=== PATIENT | male | born 1940 | race Caucasian/White ===

== ENCOUNTER 2017-11-10 10:58 | Inpatient (IN) | payer OTHER, MEDICARE ==
[~2017-11-10] VITALS: Ht 170.2 cm; Wt 72.6 kg
[~2017-11-10 10:58] MED LIST: BENAZEPRIL HCL5 MG PO; CELEBREX200 M1 PO; CYCLOBENZAPRINE10 M1 PO; FISH OIL 1,0001 EACH PO; FLOMAX0.4 M1 PO; FOLIC ACID0.8 M2 PO; HYDROCHLOROTHIA25 M1 PO; IBUPROFEN600 M1 PO; MAGNESIUM500 M2 PO; NEURONTIN300 M1 PO; TURMERIC500 M2 PO; VITAMIN B-121000 MC3 PO; VITAMIN D2000 UNI1 PO
--- NOTE | 2017-11-10 11:03 | ED GENERAL ADULT ---
History of Present Illness General Chief Complaint: General Adult Stated Complaint: SWOLLEN MASS LOWER ABD Allergies Coded Allergies: No Known Allergies (10/22/17) Reconcile Medications Benazepril HCl 5 MG TABLET 0.5 TAB PO DAILY BP (Reported) Celecoxib (Celebrex) 200 MG CAPSULE 1 CAP PO DAILY PRN PAIN (Reported) Cholecalciferol (Vitamin D3) (Vitamin D) 2,000 UNIT TABLET 1 TAB PO DAILY VITAMIN SUPPORT (Reported) Cyanocobalamin (Vitamin B-12) 1,000 MCG TABLET 1 TAB PO DAILY VITAMIN SUPPORT (Reported) Cyclobenzaprine HCl 10 MG TABLET 1 TAB PO Q8P spasms Folic Acid 0.8 MG TABLET 1 TAB PO DAILY VITAMIN SUPPORT (Reported) Gabapentin (Neurontin) 300 MG CAPSULE 4 CAP PO TID NERVE PAIN (Reported) Hydrochlorothiazide 25 MG TABLET 0.5 TAB PO DAILY WATER RETENTION (Reported) Ibuprofen 600 MG TABLET 1 TAB PO Q6P PRN PAIN with food Magnesium Oxide (Magnesium) 500 MG CAPSULE 1 CAP PO DAILY SUPPLEMENT ( Reported) Meloxicam 7.5 MG TABLET 1 TAB PO Q12H PAIN/INFLAMMATION (Reported) Acosta-3 Fatty Acids/Fish Oil (Fish Oil 1,000 MG Capsule) 340 MG-1,000 MG CAPSULE 1 CAP PO DAILY SUPPLEMENT (Reported) Tamsulosin HCl (Flomax) 0.4 MG CAP.ER.24H 1 CAP PO DAILY BPH (Reported) Tramadol HCl 50 MG TABLET 1 TAB PO Q8H PAIN (Reported) Turmeric Root Extract (Turmeric) 500 MG CAPSULE 1 CAP PO DAILY SUPPLEMENT ( Reported) Triage Note: PT BIBA FROM HOME FOR EVALUATION OF SWELLING IN HIS ABD. PT HAS BEEN DIARRHEA DN WEAKNESS FOR THE PAST FEW WEEKS. PT HAS NOT BEEN ABLE TO AMBULATE DUE TO WEAKNESS. Onset: Abrupt Duration: day(s): Timing: recent history (Jairo Russo DO) General Source: patient, Exam Limitations: no limitations Vital Signs & Intake/Output Vital Signs & Intake/Output Vital Signs Date Time Temp Pulse Resp B/P B/P Pulse O2 O2 Flow FiO2 Mean Ox Delivery Rate 11/10 1858 97.5 66 18 106/55 Room Air 11/10 1634 96 Room Air 11/10 1633 98.1 64 18 112/66 96 Room Air 11/10 1340 97.9 68 16 100/60 08 1202 97 Room Air 11/10 1102 96.1 65 16 107/61 95 Room Air Triage Nurses Notes Reviewed? yes HPI: 77-year-old male with an extensive past medical history including hypertension, neuropathy, arthritis, spinal stenosis presented to the emergency department for urinary incontinence, abdominal swelling and pain, diarrhea 5days The patient reports that for the past 5 days he has had urinary leakage for the past 5 days. He cannot pass urine as well. The put him on diapers. The patient reports abdominal swelling and mild abdominal pain for the past 3 days. He does not complain of dysuria, urgency, frequency. The patient has had diarrhea for the past 7 days. he has been passing watery stools for an average of 3 times per day. gave him Imodium which did not help. No associated nausea or vomiting. At home the patient uses a walker but for the past 7 days he has not been able to walk at all and has been in bed. On review of systems: No fever, chills, chest pain, shortness of breath, palpitations, cough, loss of appetite, night sweats, headaches. (Maria Eugenia Quezada MD) Past History Travel History Traveled to [place] past 21 day No Medical History Neurological: peripheral neuropathy EENT: NONE Cardiovascular: hypertension Respiratory: NONE Gastrointestinal: NONE Hepatic: NONE Renal: NONE Musculoskeletal: SPINAL STENOSIS Psychiatric: NONE Endocrine: NONE Blood Disorders: NONE Cancer(s): NONE MAT MAKER/Reproductive: NONE Surgical History Surgical History: non-contributory Psychosocial History What is your primary language Swedish Tobacco Use: Quit >30 days ago ETOH Use: denies use Illicit Drug Use: denies illicit drug use (Jairo Russo DO) Medical History Any Pertinent Medical History? see below for history Neurological: peripheral neuropathy, spinal stenosis EENT: NONE Cardiovascular: hypertension Respiratory: NONE Gastrointestinal: NONE Hepatic: NONE Renal: NONE Musculoskeletal: SPINAL STENOSIS Psychiatric: NONE Endocrine: NONE Blood Disorders: NONE Cancer(s): NONE Surgical History Surgical History: non-contributory Psychosocial History Where do you live Home Who do you live with Spouse What is your primary language Swedish Tobacco Use: Quit >30 days ago ETOH Use: denies use Illicit Drug Use: denies illicit drug use Family History Hx Contributory? Yes (Maria Eugenia Quezada MD) Review of Systems Review of Systems Constitutional: Reports: weakness. Denies: chills, diaphoresis, fever, malaise, unexplained weight loss. EENTM: Reports: no symptoms. Denies: blurred vision, double vision, visual changes, eye pain, eye drainage, eye tearing, icterus, ear discharge, ear pain, ear redness, hearing changes, nasal congestion, epistaxis, nasal pain, throat pain, throat swelling, mouth pain, tooth pain. Respiratory: Reports: no symptoms. Cardiovascular: Reports: no symptoms. GI: Reports: abdominal pain, diarrhea, distention, bowel incontinence. Genitourinary: Denies: discharge, dysuria, frequency, hematuria, hesitation, nocturia, pain, urgency (uri inconti ). Musculoskeletal: Reports: back pain, muscle pain. Skin: Reports: no symptoms. Neurological/Psychological: Reports: no symptoms. Hematologic/Endocrine: Reports: no symptoms. Immunologic/Allergic: Reports: no symptoms. All Other Systems: Reviewed and Negative (Maria Eugenia Quezada MD) Physical Exam Physical Exam General Appearance: well developed/nourished, no apparent distress, alert, awake , comfortable Head: atraumatic, normal appearance Eyes: Bilateral: normal appearance, PERRL, EOMI. Ears, Nose, Throat: normal pharynx, normal ENT inspection, hearing grossly normal Neck: normal inspection, supple Respiratory: normal breath sounds, chest non-tender, no respiratory distress Cardiovascular: regular rate/rhythm Peripheral Pulses: 4+ radial (R), 4+ radial (L) Gastrointestinal: normal bowel sounds, soft, tenderness, mass, tenderness and mass in hypogastrium Rectal: normal rectal tone, Prostate is enlarge, non tender, smooth surface Neurologic/Psych: no motor/sensory deficits, awake, alert, oriented x 3, normal mood/affect Core Measures ACS in differential dx? No CVA/TIA Diagnosis: No Sepsis Present: No Sepsis Focused Exam Completed? Yes (Maria Eugenia Quezada MD) Progress Differential Diagnoses I considered the following diagnoses in my evaluation of the patient: (Karan SEN,Jairo Velasco) Differential Diagnoses I considered the following diagnoses in my evaluation of the patient: Urinary retention likely to pain medications/ enlarged prostate/ neuropathy Plan of Care: Orders Procedure Date/time Status Heart Healthy Diet 11/11 B Active Regular Diet 11/10 D Complete Weight 11/10 1948 Active Vital Signs 11/10 1948 Active Teach/Educate 11/10 1948 Active Pain Treatment and Response 11/10 1948 Active Nutritional Intake, Monitor 11/10 1948 Active Isolation 11/10 1948 Active Intake & Output 11/10 1948 Active Patient Care Conference 11/10 1948 Active Activity/Ambulation 11/10 1948 Active Patient Data 11/10 163 Active ED Holding Orders 11/10 162 Active Admit to inpatient 11/10 162 Active Code Status 11/10 162 Active COMPREHENSIVE METABOLIC PANEL 11/10 1155 Complete URINALYSIS 11/10 1130 Complete CBC WITHOUT DIFFERENTIAL 11/10 1130 Complete Cameron, Insertion/Removal/Asses 11/10 1129 Active CULTURE,URINE 11/10 112 Active Intake & Output 11/10 1112 Active PT Evaluate & Treat 11/10 UNK Active Laboratory Tests 11/10/17 1158: Anion Gap 7, Estimated GFR 39 L, BUN/Creatinine Ratio 35.9 H, Glucose 101 H, Calcium 9.3, Total Bilirubin 2.3 H, AST 162 H, ALT 444 H, Alkaline Phosphatase 192 H, Total Protein 6.3, Albumin 3.5, Globulin 2.8, Albumin/ Globulin Ratio 1.3, CBC w Diff NO MAN DIFF REQ, RBC 4.05 L, MCV 92.3, MCH 31.1 H, MCHC 33.7, RDW 13.6, MPV 8.7, Gran % 63.3, Lymphocytes % 24.2, Monocytes % 9.5 H, Eosinophils % 2.5, Basophils % 0.5, Absolute Granulocytes 2.8, Absolute Lymphocytes 1.1 L, Absolute Monocytes 0.4, Absolute Eosinophils 0.1, Absolute Basophils 0 11/10/17 1145: Urinalysis LIGHT H, Urine Color YEL, Urine Clarity HAZY H, Urine pH 6.0, Ur Specific [place] 1.020, Urine Protein NEG, Urine Ketones NEG, Urine Nitrite NEG, Urine Bilirubin NEG, Urine Urobilinogen 0.2, Ur Leukocyte Esterase NEG, Ur Microscopic SEDIMENT EXAMINED, Urine RBC RARE, Urine Mucus FEW, Urine Hemoglobin NEG, Urine Glucose NEG Microbiology 11/10 1145 URINE ROUT: Urine Culture - RECD Initial ED EKG: NSR Comments: On assessment, on passing Cameron's, we got 2500ml urine (Pilar GARCIA,Maria Eugenia) Departure Departure Condition: Stable Clinical Impression Primary Impression: ELAINE (acute kidney injury) Secondary Impressions: Spinal stenosis, Urinary retention Referrals: Mamta Dominguez MD (PCP/Family) Departure Forms: Customer Survey General Discharge Information Admission Note Spoke With: Lilian Garza MD Documentation of Exam: Documentation of any treatments & extenuating circumstances including Concerns Regarding Discharge (functional status, medication knowledge or non-compliance, living conditions, etc.) that warrant an admission rather than observation: [77- year-old male with inability to walk over the last several weeks. Has been progressive. Now presents with urinary retention, 2-1/2 L of urine was returned after the Cameron was placed, he has acute kidney injury, elevated transaminases admitted for IV hydration, PT consultation, consider neurosurgery consultation- Dr. Park has seen him in the past; this was communicated to the house staff. Review medications. Repeat transaminases and creatinine.] I saw and personally examined the patient and I agree with the internet sourcer's evaluation. He is a 77-year-old male presented to the emergency department in acute urinary retention. He's also had progressive weakness to his lower extremities and has been unable to walk for the past 2 weeks. He had a recent MRI of his lumbar spine. The results as shown below. PATIENT: NILDA RAMEY PRESENT AGE: 77 PATIENT ACCOUNT NO: [id number] : 38 LOCATION: MRI ORDERING PHYSICIAN: Alexander Hitchcock MD SERVICE DATE: 11/08/17 EXAM TYPE: MRI - MRI-LUMBAR SPINE W & W/O TOÑA Addendum: Findings were discussed with Dr. Hitchcock at 9:54 AM on 11/10/2017. Addendum Signed by: Jairo Matthews MD 11/10/17 0954 EXAMINATION: MR LUMBAR SPINE WITHOUT AND WITH CONTRAST CLINICAL INFORMATION: Lower back pain. Spinal stenosis. COMPARISON: Lumbar spine radiographs 10/22/2017. Lumbar spine CT 02/06/2017 and lumbar spine MRI 09/16/2013. TECHNIQUE: MRI of the lumbar spine was obtained before and after intravenous administration of 7 mL Gadavist. FINDINGS: There is extensive marrow heterogeneity throughout the imaged spinal elements, the sacrum, and the bony pelvis which is progressed in comparison to the MRI from 2013. Differential considerations include heterogeneous red marrow replacement or malignant marrow replacement and CBC correlation and correlation with bone scan would be helpful in further assessment. Nonspecific T2 signal changes and enhancement within the L1, L2, and L3 vertebral bodies that may be degenerative or inflammatory. Though felt to be unlikely, infection should be considered in the appropriate clinical context. There is no paravertebral enhancement at this level nor evidence of cortical erosion. There are Modic type I endplate signal changes at L1-L2 and at L3-L4. Vertebral body heights overall maintained. There is grade 1 anterolisthesis of L3 on L4 and L4 on L5 that is stable. Rightward convex lumbar scoliosis. Exophytic left renal cyst. Severe right-sided disc volume loss at L4-L5 is unchanged. Severe disc volume loss at L1-L2 and L2-L3 is progressed. There is disc desiccation at all lumbar levels. Conus terminates at the L1 level. Nondiagnostic assessment for enhancement along the cauda equina nerve roots secondary to artifact. Bladder is significantly distended. L1-L2: There is a diffuse annular disc bulge with a superimposed large left lateral disc osteophyte protrusion. There is severe left and moderate right hypertrophic facet arthropathy and ligamentum flavum thickening. Findings have progressed resulting in worsening severe central canal stenosis, severe left foraminal stenosis with compression of the exiting left L1 nerve root and moderate to severe right foraminal stenosis with mass effect on the exiting right L1 nerve root. L2-L3: There is a diffuse annular disc bulge and there is severe bilateral hypertrophic facet arthropathy and ligamentum flavum thickening. Findings in concert result in similar severe central canal stenosis and worsening severe bilateral foraminal stenosis with compression of the exiting L2 nerve roots bilaterally. L3-L4: Increase in size of a superiorly migrating central disc extrusion that results in worsening severe central canal stenosis at the L3-L4 disc level and the L3 vertebral body level. Severe bilateral foraminal stenosis is similar to the previous examination with compression of the exiting L3 nerve roots bilaterally. L4-L5: There is grade 1 anterolisthesis in the setting of severe bilateral hypertrophic facet arthropathy and ligamentum flavum thickening. Findings in concert result in worsening severe central canal stenosis. Disc osteophyte and facet arthropathy result in similar severe right and moderate left foraminal stenosis with compression of the exiting right L4 nerve root. L5-S1: Interspinous surgical device in place. There are laminectomy changes. Diffuse annular disc bulge and severe bilateral hypertrophic facet arthropathy and ligamentum flavum thickening. Similar left greater than right subarticular zone stenosis with mass effect on the traversing left greater than right S1 nerve roots. Mild foraminal encroachment bilaterally. IMPRESSION: - At L3-L4, there has been an increase in size of a now large superiorly migrating central disc extrusion that results in worsening markedly severe central canal stenosis at the L3 vertebral body level and the L3-L4 disc level. Stable severe bilateral foraminal stenosis at this level with compression of the exiting L3 nerve roots bilaterally. - At L4-L5, grade 1 degenerative anterolisthesis and multifactorial degenerative changes result in worsening severe central canal stenosis and severe right foraminal stenosis with compression of the exiting right L4 nerve root. - At L2-L3, multifactorial degenerative changes result in similar severe central canal stenosis and worsening severe left greater than right foraminal stenosis with compression of the exiting L2 nerve roots bilaterally. - At L1-L2, progressive degenerative changes result in worsening severe central canal stenosis and severe left and moderate to severe right foraminal stenosis with compression of the exiting nerve roots bilaterally. - Stable degenerative changes and postsurgical changes at L5-S1. - There is extensive marrow heterogeneity throughout the imaged spinal elements, the sacrum, and the bony pelvis which is progressed in comparison to the MRI from 2014. Differential considerations include heterogeneous red marrow replacement or malignant marrow replacement and CBC correlation and correlation with bone scan would be helpful in further assessment. - Nonspecific T2 signal changes and enhancement within the L1, L2, and L3 vertebral bodies that may be degenerative or inflammatory. Though felt to be unlikely, infection should be considered in the appropriate clinical context. There is no paravertebral enhancement at this level nor evidence of cortical erosion. - Bladder is significantly distended. DICTATED BY: Jairo Matthews MD DATE/TIME DICTATED:11/10/17839 BUSINESS CONTINUITY MANAGEMENT DIRECTOR:JENNIFER DATE/TIME TRANSCRIBED:11/10/17839 CONFIDENTIAL, DO NOT COPY WITHOUT APPROPRIATE AUTHORIZATION. <Electronically signed in Other Vendor System> SIGNED BY: Jairo Matthews MD 11/10/17 09 On physical exam now in the emergency department his abdomen was distended. This completely resolved after the Cameron catheter was placed. He has significant bilateral lower extremity weakness. Rectal exam revealed good tone and guaiac negative stool. This was done by me. He is being admitted to the hospital for IV hydration for acute kidney injury, repeat transaminases, review medications for pharmacologic urinary retention and hepatotoxicity, PTT consultation, consider neurosurgical consultation. PA/ZONING ADMINISTRATOR Co-Sign Statement Statement: ED Attending supervision documentation- [] I saw and evaluated the patient. I have also reviewed all the pertinent lab results and diagnostic results. I agree with the findings and the plan of care as documented in the PA's/ZONING ADMINISTRATOR's documentation. [] I have reviewed the ED Record and agree with the PA's/ZONING ADMINISTRATOR's documentation. [] Additions or exceptions (if any) to the PAs/ZONING ADMINISTRATOR's note and plan are summarized below: [] Resident Co-Sign Statement Statement: ED Attending supervision documentation- [X] I saw and evaluated the patient. I have also reviewed all the pertinent lab results and diagnostic results. I agree with the findings and the plan of care as documented in the Resident's documentation. [] I have reviewed the ED Record and agree with the Resident's documentation. [] Additions or exceptions (if any) to the Resident's note and plan are summarized below: [] (Karan SEN,Jairo Velasco) Departure Disposition: STILL A PATIENT (Maria Eugenia Quezada MD) Critical Care Note Critical Care Note Critical Care Time: non-applicable (Maria Eugenia Quezada MD) ED Attending Observation Initial Observation Note: I have seen and personally examined NILDA RAMEY on 11/10/17 at 1809. I agree with the current emergency department documentation. The disposition (admission or discharge) is uncertain at this time, he needs a period of observation for the following reason(s): Uri retention The ED Nurse caring for this patient has been personally informed as to what the patient is being observed for. (Maria Eugenia Quezada MD)
[2017-11-10 12:13] LABS: ABSOLUTE BASOPHIL COUNT 0 /CUMM (0.0-0.2); ABSOLUTE EOSINOPHIL COUNT 0.1 /CUMM (0.0-0.7); ABSOLUTE GRANULOCYTE CT 2.8 /CUMM (1.4-6.5); ABSOLUTE LYMPH COUNT 1.1 /CUMM (1.2-3.4); ABSOLUTE MONOCYTE COUNT 0.4 /CUMM (0.10-0.60); BASOPHIL % 0.5 % (0.0-2.0); EOSINOPHIL % 2.5 % (0-5); GRANULOCYTE % 63.3 % (42.2-75.2); HEMATOCRIT 37.4 % (42-52); MEAN CORPUSCULAR HGB 31.1 PG (27.0-31.0); MEAN CORPUSCULAR HGB CONC 33.7 G/DL (33.0-37.0); MEAN CORPUSCULAR VOLUME 92.3 FL (80.0-94.0); MEAN PLATELET VOLUME 8.7 FL (7.4-10.4); PLATELET COUNT 200 /CUMM (130-400); RBC DISTRIBUTION WIDTH 13.6 % (11.5-14.5); RED BLOOD CELL CT 4.05 /CUMM (4.70-6.10); WHITE BLOOD CELL COUNT 4.5 /CUMM (4.8-10.8)
[2017-11-10] MEDS ORDERED: TRAMADOL HCL50 M1 PO (13:34)
[2017-11-10] MEDS ORDERED: MELOXICAM7.5 M1 PO (13:35)
--- NOTE | 2017-11-10 15:40 | CT SCAN REPORT ---
EXAMINATION: CT ABDOMEN AND PELVIS WITHOUT CONTRAST CLINICAL INFORMATION: Urinary retention. COMPARISON: None TECHNIQUE: Multidetector volumetric imaging was performed from the superior aspect of the liver through the pubic symphysis. Sagittal and coronal reformatted images were obtained on the technologist's workstation. DLP: 304 mGy-cm FINDINGS: LUNG BASES: Minimal atelectasis scarring seen in the left lung base. Heart size appears normal. There are coronary artery calcifications present. LIVER, GALLBLADDER, AND BILIARY TREE: The liver is normal in size, shape, and attenuation. No focal hepatic lesion or biliary ductal dilatation is present. Gallbladder has been surgically removed. PANCREAS: Unremarkable. SPLEEN: Unremarkable. ADRENAL GLANDS: Unremarkable. KIDNEYS AND URETERS: The kidneys are normal in size, shape, and attenuation. No hydronephrosis, hydroureter, or calculi seen. No perinephric stranding. BLADDER: The bladder is empty with a Cameron's catheter within. GASTROINTESTINAL TRACT: Diffuse sigmoid and scattered descending colon diverticulosis without diverticulitis. There is stool and air-fluid levels seen throughout the colon without distention. The small bowel loops are normal caliber. No free air or free fluid seen. ABDOMINAL WALL: No significant hernia is appreciated. LYMPH NODES: Is scattered retroperitoneal 6 mm or less lymph nodes in the retroperitoneum. VASCULAR: Unremarkable. PELVIC VISCERA: There is no free fluid of free air. No pelvic mass. The prostate gland is normal size. OSSEOUS STRUCTURES: There are degenerative disc changes L1-L2 through L4-L5 disc levels with moderate ventral spondylosis. No lytic or sclerotic process seen. IMPRESSION: Diffuse sigmoid and scattered descending colon diverticulosis without diverticulitis. No bowel obstruction seen. The bladder is empty with a Cameron's catheter within.
--- NOTE | 2017-11-10 15:42 | History & Physical ---
Derick Abdi 11/10/17 1541: General Information and HPI History of Present Illness: Sean Bertrand is a 77 YO male with a PMHx. of HTN and multilevel spinal stenosis s/p cervical spine surgery who presents to the ED with complaints of a "lower abdominal mass and discomfort" since early this morning. Patient mentions that in the last two weeks he has been experiencing weakenss and frequent falls. Patint notes he usually uses a walker for ambulation. Patient also notes within the last week and a half he has been noticing leakage of urine and a discomfort in his lower abdomen. Patient also reports numbness and tingling in his peripheral extremities but denies any other symptoms of fatigue, fevers, chills, nausea, and vomiting. Patient denies any history of illicit drug usage and alcohol usage. Allergies/Medications Allergies: Coded Allergies: No Known Allergies (10/22/17) Home Med list Benazepril HCl 5 MG TABLET 0.5 TAB PO DAILY BP (Reported) Celecoxib (Celebrex) 200 MG CAPSULE 1 CAP PO DAILY PRN PAIN (Reported) Cholecalciferol (Vitamin D3) (Vitamin D) 2,000 UNIT TABLET 1 TAB PO DAILY VITAMIN SUPPORT (Reported) Cyanocobalamin (Vitamin B-12) 1,000 MCG TABLET 1 TAB PO DAILY VITAMIN SUPPORT (Reported) Cyclobenzaprine HCl 10 MG TABLET 1 TAB PO Q8P spasms Folic Acid 0.8 MG TABLET 1 TAB PO DAILY VITAMIN SUPPORT (Reported) Gabapentin (Neurontin) 300 MG CAPSULE 4 CAP PO TID NERVE PAIN (Reported) Hydrochlorothiazide 25 MG TABLET 0.5 TAB PO DAILY WATER RETENTION (Reported) Ibuprofen 600 MG TABLET 1 TAB PO Q6P PRN PAIN with food Magnesium Oxide (Magnesium) 500 MG CAPSULE 1 CAP PO DAILY SUPPLEMENT ( Reported) Meloxicam 7.5 MG TABLET 1 TAB PO Q12H PAIN/INFLAMMATION (Reported) [place]-3 Fatty Acids/Fish Oil (Fish Oil 1,000 MG Capsule) 340 MG-1,000 MG CAPSULE 1 CAP PO DAILY SUPPLEMENT (Reported) Tamsulosin HCl (Flomax) 0.4 MG CAP.ER.24H 1 CAP PO DAILY BPH (Reported) Tramadol HCl 50 MG TABLET 1 TAB PO Q8H PAIN (Reported) Turmeric Root Extract (Turmeric) 500 MG CAPSULE 1 CAP PO DAILY SUPPLEMENT ( Reported) Past History Travel History Traveled to [place] past 21 day No Medical History Neurological: peripheral neuropathy, spinal stenosis EENT: NONE Cardiovascular: hypertension Respiratory: NONE Gastrointestinal: NONE Hepatic: NONE Renal: NONE Musculoskeletal: SPINAL STENOSIS Psychiatric: NONE Endocrine: NONE Blood Disorders: NONE Cancer(s): NONE PERSONAL CARE SERVICE PROVIDER/Reproductive: NONE Surgical History Surgical History: non-contributory Past Family/Social History Psychosocial History ETOH Use: denies use Illicit Drug Use: denies illicit drug use Review of Systems Review of Systems Constitutional: Reports: weakness. Denies: fever. Cardiovascular: Denies: chest pain. Respiratory: Denies: short of breath. GI: Denies: diarrhea, nausea, vomiting. Genitourinary: Reports: frequency (leakage). Exam & Diagnostic Data Last 24 Hrs of Vital Signs/I&O Vital Signs Date Time Temp Pulse Resp B/P B/P Pulse O2 O2 Flow FiO2 Mean Ox Delivery Rate 11/11 0603 97.7 79 20 134/64 95 08/04 2213 97.6 66 18 112/56 97 Room Air / 1858 97.5 66 18 106/55 Room Air / 1634 96 Room Air / 1633 98.1 64 18 112/66 96 Room Air 08/04 1340 97.9 68 16 100/60 08/04 1202 97 Room Air 08/04 1102 96.1 65 16 107/61 95 Room Air Intake & Output 08/ 0800 08/05 0000 08/04 1600 Intake Total 250 320 Output Total 7731 948 9406 Balance -1400 -150 -2080 Intake, IV 10 Intake, Oral 240 320 Output, Urine 2120 070 0183 Patient 160 lb 160 lb Weight Weight Reported by Patient Reported by Patient Measurement Method Physical Exam General Appearance Alert, Oriented X3, Cooperative, No Acute Distress HEENT Atraumatic, PERRLA Neck Supple, No JVD Cardiovascular Regular Rate, Normal S1, Normal S2 Lungs Clear to Auscultation, Normal Air Movement Abdomen Soft, No Tenderness Neurological Normal Speech Assessment/Plan Assessment: CT ABD/PELVIS W/O CONTRAST - IMPRESSION: Diffuse sigmoid and scattered descending colon diverticulosis without diverticulitis. No bowel obstruction seen. The bladder is empty with a Cameron's catheter within. Pertinent Labs - WBC 4.5 HGB 12.6 HCT 37.4 K 5.2 BUN 61 Cr 1.7 AST 162 ALT 444 Alk Phos 192 #Acute kidney injury, secondary to obstructive uropathy - Admit to general medicine for monitoring and assessment of vitals - Follow BUN/Cr in the morning - Cameron catheter placed - Urology consultation #Spinal Canal stenosis - MRI 11/08/17 indicates multi-level spinal stenosis involvement - Pain management; neuropathy pain control via gabapentin - PT evaluation - Orthopedic consult - Neurosurgery consult #Elevated LFTS - Right upper quadrant U/S - Follow PT/INR - Avoid hepatotoxic agents including Acetaminophen DVT PPx. FC As Ranked By This Provider Problem List: 1. ELAINE (acute kidney injury) 2. Urinary retention Core Measures/Misc (12/24) Acute Coronary Syndrome ACS Diagnosis: No Congestive Heart Failure Congestive Heart Failure Diagnosis No Cerebrovascular Accident CVA/TIA Diagnosis: No VTE (View Protocol) VTE Risk Factors Acute Medical Illness No Mechanical VTE Prophylaxis d/t N/A MechProphylax Ordered No VTE Pharm Prophylaxis d/t NA PharmProphylax ordered Sepsis (View protocol) Sepsis Present: No If YES complete Sepsis Event Note If YES complete Sepsis Event Note Yo GARCIA,Landen 11/10/17 1639: Core Measures/Misc (12/24) Sepsis (View protocol) If YES complete Sepsis Event Note If YES complete Sepsis Event Note Resident Review Statement Resident Statement: examined this patient, discussed with direct marketing intern, agreed with direct marketing intern, reviewed EMR data (avail), discussed with nursing, discussed with case mgmt, reviewed images, amended to note Other Findings: 77-year-old male with past medical history of hypertension, multilevel spinal canal stenosis, status post cervical spine surgery/fusion in the past, who presented with "lower abdominal mass and discomfort" since this morning, and was found to have distended bladder on examination in the ED. He drained 2.5 L of urine and was also found to have ELAINE, per labwork. He also mentioned that since about 2 weeks, he started having gait difficulty, leading to multiple falls, never hit his head, although landed on his bottom "few times", and in about 50 feet his legs would give out while walking even with a walker. He also started noticing leakage of urine around since abt 1.5 weeks and in the past 3-5 days he has not been able to urinate as he used to before. He has significant peripheral neuropathy, secondary to nerve compression, which has not changed, including his slight fecal incontinence. Vitals and examinations as noted above. Specifically, he does not have saddle anesthesia, and his rectal tone is intact. He has a Cameron placed so urine incontinence is not assessed, but he did have some amount of fecal matter leakage around his anus. Patient is being admitted in the general medical floor for the management of following issues: #Acute kidney injury, secondary to obstructive uropathy Patient's BUN/creatinine was 61/1.7 compared to his baseline creatinine of 1.2, and given his obvious obstructive uropathy, after Cameron placement, it has been kept in place, and will measure his any function test in the morning again. In the meantime, will avoid nephrotoxic drugs, and keep him hydrated orally. Urology consult has been placed, to further guide the management #Multilevel spinal canal stenosis with severe peripheral neuropathy, no clinical cauda equina Patient seems to be having worsening of his neurologic symptoms, although he does not seem to have cauda equina clinically right now, given his worsening gait, multiple falls, and his neurogenic bladder. MRI was obtained as recent as 11/08/17, which shows extensive disease of the spine, and thus orthopedic surgeon, and neurosurgeon has been consulted, pending their expert opinion on this. We will try to get his pain under control while trying to avoid nephrotoxic, hepatotoxic drugs, in the meantime. We will continue gabapentin for neuropathy. PT has been ordered given his changes. #Transaminitis Patient's liver function test is deranged currently, without any obvious etiology, thus will obtain a right upper quadrant ultrasound to rule out any hepatobiliary pathology. To assess his synthetic function of liver, INR has been ordered for the morning. We will avoid any hepatotoxic drugs in the meantime, and limit the use of acetaminophen for pain management. #We will continue his home medications otherwise. #Diet: Regular diet, NPO from midnithgt for RUQ US study in the morning #DVT ppx: ALPS/SQ Heparin #Code status: Full code Lilian Garza MD 11/10/17 1752: Core Measures/Misc (12/24) Sepsis (View protocol) If YES complete Sepsis Event Note If YES complete Sepsis Event Note Attending Review Statement Attending Statement Attending Statement: examined this patient, discuss w/resident/PA/CANDY CATCHER, agreed w/resident/PA/CANDY CATCHER, reviewed EMR data (avail), discussed with nursing, discussed with case mgmt, reviewed images, amended to note Attending Assessment/Plan: 77-year-old male with past medical history significant for spinal stenosis, status post surgeries, peripheral neuropathy, hypertension, chronic pain who presented to the emergency room with abdominal pain, abdominal swelling, urinary incontinence and some diarrhea. Patient was found to have urinary retention and enlarged urinary bladder. Patient denies any nausea or vomiting. His abdominal pain was improved after the Cameron catheter was inserted. As soon as the Cameron was inserted in the emergency room, patient put out almost 2500 cc of urine. Patient claims that he is mostly bedbound. He has severe peripheral neuropathy and if he gets up and starts to walk then he falls. This urinary retention and incontinence is rather recent. Patient wears depends and he was dribbling urine. He also had some diarrhea but he states that that is pretty much chronic for him. He does take much of pain medications. He denies any burning on urination, fevers, chills. He was also found to have abnormal transaminases. He was in acute renal failure as well. Patient follows with Dr. Hitchcock who is a spine surgeon. Apparently he had MRI of the lumbar spine 2 days ago which shows worsening of his disease overall with severe central canal stenosis. Unfortunately there is no sacral spine included in that MRI. Vital Signs Date Time Temp Pulse Resp B/P B/P Pulse O2 O2 Flow FiO2 Mean Ox Delivery Rate 11/10 1634 96 Room Air 11/10 1633 98.1 64 18 112/66 96 Room Air 11/10 1340 97.9 68 16 100/60 11/10 1202 97 Room Air 11/10 1102 96.1 65 16 107/61 95 Room Air on exam; aox3, nad. cv; s1, s2, rrr resp; clear abd; soft, nt, bs+ ext; no edema neuro: non focal. Laboratory Tests 11/10 11/10 1158 1145 Chemistry Sodium (137 - 145 mmol/L) 132 L Potassium (3.5 - 5.1 mmol/L) 5.2 H Chloride (98 - 107 mmol/L) 96 L Carbon Dioxide (22 - 30 mmol/L) 30 Anion Gap (5 - 16) 7 BUN (9 - 20 mg/dL) 61 H Creatinine (0.7 - 1.2 mg/dL) 1.7 H Estimated GFR (>60 ml/min) 39 L BUN/Creatinine Ratio (7 - 25 %) 35.9 H Glucose (65 - 99 mg/dL) 101 H Calcium (8.4 - 10.2 mg/dL) 9.3 Total Bilirubin (0.2 - 1.3 mg/dL) 2.3 H AST (17 - 59 U/L) 162 H ALT (21 - 72 U/L) 444 H Alkaline Phosphatase (< 127 U/L) 192 H Total Protein (6.3 - 8.2 g/dL) 6.3 Albumin (3.5 - 5.0 g/dL) 3.5 Globulin (1.9 - 4.2 gm/dL) 2.8 Albumin/Globulin Ratio (1.1 - 2.2 %) 1.3 Hematology CBC w Diff NO MAN DIFF REQ WBC (4.8 - 10.8 /CUMM) 4.5 L RBC (4.70 - 6.10 /CUMM) 4.05 L Hgb (14.0 - 18.0 G/DL) 12.6 L Hct (42 - 52 %) 37.4 L MCV (80.0 - 94.0 FL) 92.3 MCH (27.0 - 31.0 PG) 31.1 H MCHC (33.0 - 37.0 G/DL) 33.7 RDW (11.5 - 14.5 %) 13.6 Plt Count (130 - 400 /CUMM) 200 MPV (7.4 - 10.4 FL) 8.7 Gran % (42.2 - 75.2 %) 63.3 Lymphocytes % (20.5 - 51.1 %) 24.2 Monocytes % (1.7 - 9.3 %) 9.5 H Eosinophils % (0 - 5 %) 2.5 Basophils % (0.0 - 2.0 %) 0.5 Absolute Granulocytes (1.4 - 6.5 /CUMM) 2.8 Absolute Lymphocytes (1.2 - 3.4 /CUMM) 1.1 L Absolute Monocytes (0.10 - 0.60 /CUMM) 0.4 Absolute Eosinophils (0.0 - 0.7 /CUMM) 0.1 Absolute Basophils (0.0 - 0.2 /CUMM) 0 Urines Urinalysis LIGHT H Urine Color (YEL,AMB,STR) YEL Urine Clarity (CLEAR) HAZY H Urine pH (5.0 - 8.0) 6.0 Ur Specific [place] (1.001 - 1.035) 1.020 Urine Protein (NEG,<30 MG/DL) NEG Urine Ketones (NEG) NEG Urine Nitrite (NEG) NEG Urine Bilirubin (NEG) NEG Urine Urobilinogen (0.1 - 1.0 EU/dl) 0.2 Ur Leukocyte Esterase (NEG) NEG Ur Microscopic SEDIMENT EXAMINED Urine RBC (0 - 5 /HPF) RARE Urine Mucus (FEW,NONE) FEW Urine Hemoglobin (NEG) NEG Urine Glucose (N MG/DL) NEG CT ABd/pelvis: IMPRESSION: Diffuse sigmoid and scattered descending colon diverticulosis without diverticulitis. No bowel obstruction seen. The bladder is empty with a Cameron's catheter within A/P; 77-year-old male with past medical history significant for spinal stenosis, status post surgeries, peripheral neuropathy, hypertension, chronic pain, presented with acute urinary retention, status post Cameron catheter and relief of the urinary retention. Patient is admitted with acute renal failure, abnormal transaminases. Recent MRI lumbar spine which was ordered by Dr. Hitchcock has shown worsening of degenerative disc disease in the lumbar spine as well as severe canal stenosis. Patient admitted to medicine floor. He is getting IV hydration. We will monitor the creatinine. Please consult urology. Ideally we need an MRI of the lumbosacral that is not available therefore we will obtain a CAT scan of the lumbosacral spine without contrast. Please consult orthopedic. Please check rectal tone and saddle anethesia by performing rectal exam. We will obtain a right upper quadrant ultrasound. Will avoid any nephrotoxic and hepatotoxic medications. We will monitor the LFTs. Patient denies any nausea or vomiting. He does take quite a bit of pain medications. Please confirm and continue his home medications. Pharmacologic DVT prophylaxis. Patient is a full code. He will need PT evaluation.
[2017-11-10 22:13] VITALS: BP 112/56
[2017-11-11 06:03] VITALS: BP 134/64
[2017-11-11 07:53] LABS: ABSOLUTE BASOPHIL COUNT 0 /CUMM (0.0-0.2); ABSOLUTE EOSINOPHIL COUNT 0.1 /CUMM (0.0-0.7); ABSOLUTE GRANULOCYTE CT 2.3 /CUMM (1.4-6.5); ABSOLUTE LYMPH COUNT 1.4 /CUMM (1.2-3.4); ABSOLUTE MONOCYTE COUNT 0.3 /CUMM (0.10-0.60); BASOPHIL % 0.5 % (0.0-2.0); EOSINOPHIL % 2.6 % (0-5); GRANULOCYTE % 56.3 % (42.2-75.2); HEMATOCRIT 39.1 % (42-52); MEAN CORPUSCULAR HGB 31.8 PG (27.0-31.0); MEAN CORPUSCULAR HGB CONC 34.3 G/DL (33.0-37.0); MEAN CORPUSCULAR VOLUME 92.5 FL (80.0-94.0); PLATELET COUNT 204 /CUMM (130-400); RBC DISTRIBUTION WIDTH 13.9 % (11.5-14.5); RED BLOOD CELL CT 4.22 /CUMM (4.70-6.10); WHITE BLOOD CELL COUNT 4.1 /CUMM (4.8-10.8)
[2017-11-11 08:14] LABS: PT 13.3 SEC (9.4-12.5)
--- NOTE | 2017-11-11 08:31 | Cons- Urology ---
General Information and HPI Consulting Request Date of Consult: 11/11/17 Requested By: Lilian Garza MD Reason for Consult: Urinary retention Source of Information: patient, old records Exam Limitations: no limitations History of Present Illness: This patient has a hx of multilevel spinal stenosis with peripheral neuropathy. He presented to the ER with lower abdominal mass, urinary incontinence and progressive difficulty ambulating. He has seen his pcp a couple of weeks ago with increased urinary sx's and was started on tamsulosin. Previous to this time he had a slow urinary stream but no other significant lower urinary sx's. Creatinine on admission was 1.7. Lizarraga was placed in the ER and initially drained 1750 cc. His lower abdominal mass then resolved and was a distended bladder. A CT of the abd and pelvis after the lizarraga was placed did not reveal any urologic abnormality. Allergies/Medications Allergies: Coded Allergies: No Known Allergies (10/22/17) Home Med List: Benazepril HCl 5 MG TABLET 0.5 TAB PO DAILY BP (Reported) Celecoxib (Celebrex) 200 MG CAPSULE 1 CAP PO DAILY PRN PAIN (Reported) Cholecalciferol (Vitamin D3) (Vitamin D) 2,000 UNIT TABLET 1 TAB PO DAILY VITAMIN SUPPORT (Reported) Cyanocobalamin (Vitamin B-12) 1,000 MCG TABLET 1 TAB PO DAILY VITAMIN SUPPORT (Reported) Cyclobenzaprine HCl 10 MG TABLET 1 TAB PO Q8P spasms Folic Acid 0.8 MG TABLET 1 TAB PO DAILY VITAMIN SUPPORT (Reported) Gabapentin (Neurontin) 300 MG CAPSULE 4 CAP PO TID NERVE PAIN (Reported) Hydrochlorothiazide 25 MG TABLET 0.5 TAB PO DAILY WATER RETENTION (Reported) Ibuprofen 600 MG TABLET 1 TAB PO Q6P PRN PAIN with food Magnesium Oxide (Magnesium) 500 MG CAPSULE 1 CAP PO DAILY SUPPLEMENT ( Reported) Meloxicam 7.5 MG TABLET 1 TAB PO Q12H PAIN/INFLAMMATION (Reported) [place]-3 Fatty Acids/Fish Oil (Fish Oil 1,000 MG Capsule) 340 MG-1,000 MG CAPSULE 1 CAP PO DAILY SUPPLEMENT (Reported) Tamsulosin HCl (Flomax) 0.4 MG CAP.ER.24H 1 CAP PO DAILY BPH (Reported) Tramadol HCl 50 MG TABLET 1 TAB PO Q8H PAIN (Reported) Turmeric Root Extract (Turmeric) 500 MG CAPSULE 1 CAP PO DAILY SUPPLEMENT ( Reported) Current Medications: Current Medications Sig/[place] Start time Last Medication Dose Route Stop Time Status Admin Acetaminophen 1,000 MG ONCE ONE 11/11 714 DC N/A 1 UNIT IV 11/11 728 Cholecalciferol 1,000 IU DAILY 11/11 899 AC PO Cyanocobalamin 1,000 MCG DAILY 11/11 899 AC PO Cyclobenzaprine HCl 10 MG Q8P PRN 11/10 2045 AC 11/10 PO 2334 Fish Oil 1,050 MG DAILY 11/11 899 AC PO Folic Acid 1 MG DAILY 11/11 899 AC PO Gabapentin 1,200 MG TID 11/10 2200 AC 11/11 PO 0524 Gabapentin 0 .STK-MED ONE 11/10 1459 DC PO Gabapentin 900 MG STAT STA 11/10 1450 DC 11/10 PO 11/10 1451 1506 Gabapentin 0 .STK-MED ONE 11/10 1429 DC PO Gabapentin 300 MG STAT STA 11/10 1403 DC 11/10 PO 11/10 1404 1430 Heparin Sodium 5,000 UNIT Q8 11/10 220 AC 11/11 (Porcine) SC 0524 Hydrochlorothiazide 12.5 MG DAILY 11/11 899 AC PO Lisinopril 5 MG DAILY 11/11 899 AC PO Tamsulosin HCl 0.4 MG DAILY 11/10 220 AC 11/10 PO 2334 Tramadol HCl 50 MG Q8H 11/10 2100 AC 11/11 PO 0524 Past History Medical History Blood Transfusion Hx: No Neurological: peripheral neuropathy, spinal stenosis EENT: NONE Cardiovascular: hypertension Respiratory: NONE Gastrointestinal: NONE Hepatic: NONE Renal: NONE Musculoskeletal: SPINAL STENOSIS Psychiatric: NONE Endocrine: NONE Blood Disorders: NONE Cancer(s): NONE HOME ATTENDANT/Reproductive: NONE Surgical History Pertinent Surgical History: non-contributory Psychosocial History Where Do You Live? Home Services at Home: Home Health Aide Smoking Status: Former Smoker ETOH Use: denies use Illicit Drug Use: denies illicit drug use Exam & Diagnostic Data Vital Signs and I&O Vital Signs Date Time Temp Pulse Resp B/P B/P Pulse O2 O2 Flow FiO2 Mean Ox Delivery Rate 11/11 602 97.7 79 20 134/64 95 11/10 2213 97.6 66 18 112/56 97 Room Air 11/10 1858 97.5 66 18 106/55 Room Air 11/10 1634 96 Room Air 11/10 1633 98.1 64 18 112/66 96 Room Air 11/10 1340 97.9 68 16 100/60 11/10 1202 97 Room Air 11/10 1102 96.1 65 16 107/61 95 Room Air Intake & Output 11/11 1600 11/11 0800 11/11 0000 11/10 1600 11/10 0800 11/10 0000 Intake Total 70 250 320 Output Total 2809 832 3816 Balance -1330 -150 -2080 Intake, IV 10 10 Intake, Oral 60 240 320 Output, Urine 6012 140 9314 Patient 160 lb 160 lb Weight Weight Reported by Patient Reported by Patient Measurement Method No distress Back: No CVA tenderness Abd: RUQ and RLQ surgical scars well healed. Soft and non tender and without palpable mass Genitalia: Lizarraga in place. Draining clear urine. Scrotal contents normal Laboratory Tests 11/11 11/10 0630 1158 Chemistry Sodium (137 - 145 mmol/L) 137 132 L Potassium (3.5 - 5.1 mmol/L) 4.2 5.2 H Chloride (98 - 107 mmol/L) 100 96 L Carbon Dioxide (22 - 30 mmol/L) 28 30 Anion Gap (5 - 16) 9 7 BUN (9 - 20 mg/dL) 40 H 61 H Creatinine (0.7 - 1.2 mg/dL) 1.3 H 1.7 H Estimated GFR (>60 ml/min) 53 L 39 L BUN/Creatinine Ratio (7 - 25 %) 30.8 H 35.9 H Glucose (65 - 99 mg/dL) 101 H Calcium (8.4 - 10.2 mg/dL) 9.3 Total Bilirubin (0.2 - 1.3 mg/dL) 1.8 H 2.3 H Direct Bilirubin (< 0.4 mg/dL) 0.4 AST (17 - 59 U/L) 119 H 162 H ALT (21 - 72 U/L) 370 H 444 H Alkaline Phosphatase (< 127 U/L) 200 H 192 H Total Protein (6.3 - 8.2 g/dL) 6.1 L 6.3 Albumin (3.5 - 5.0 g/dL) 3.4 L 3.5 Globulin (1.9 - 4.2 gm/dL) 2.8 Albumin/Globulin Ratio (1.1 - 2.2 %) 1.3 Coagulation PT (9.4 - 12.5 SEC) 13.3 H INR (0.90 - 1.17) 1.22 H Hematology CBC w Diff NO MAN DIFF REQ NO MAN DIFF REQ WBC (4.8 - 10.8 /CUMM) 4.1 L 4.5 L RBC (4.70 - 6.10 /CUMM) 4.22 L 4.05 L Hgb (14.0 - 18.0 G/DL) 13.4 L 12.6 L Hct (42 - 52 %) 39.1 L 37.4 L MCV (80.0 - 94.0 FL) 92.5 92.3 MCH (27.0 - 31.0 PG) 31.8 H 31.1 H MCHC (33.0 - 37.0 G/DL) 34.3 33.7 RDW (11.5 - 14.5 %) 13.9 13.6 Plt Count (130 - 400 /CUMM) 204 200 MPV (7.4 - 10.4 FL) 9.0 8.7 Gran % (42.2 - 75.2 %) 56.3 63.3 Lymphocytes % (20.5 - 51.1 %) 33.5 24.2 Monocytes % (1.7 - 9.3 %) 7.1 9.5 H Eosinophils % (0 - 5 %) 2.6 2.5 Basophils % (0.0 - 2.0 %) 0.5 0.5 Absolute Granulocytes (1.4 - 6.5 /CUMM) 2.3 2.8 Absolute Lymphocytes (1.2 - 3.4 /CUMM) 1.4 1.1 L Absolute Monocytes (0.10 - 0.60 /CUMM) 0.3 0.4 Absolute Eosinophils (0.0 - 0.7 /CUMM) 0.1 0.1 Absolute Basophils (0.0 - 0.2 /CUMM) 0 0 08/04 1145 Urines Urinalysis LIGHT H Urine Color (YEL,AMB,STR) YEL Urine Clarity (CLEAR) HAZY H Urine pH (5.0 - 8.0) 6.0 Ur Specific [place] (1.001 - 1.035) 1.020 Urine Protein (NEG,<30 MG/DL) NEG Urine Ketones (NEG) NEG Urine Nitrite (NEG) NEG Urine Bilirubin (NEG) NEG Urine Urobilinogen (0.1 - 1.0 EU/dl) 0.2 Ur Leukocyte Esterase (NEG) NEG Ur Microscopic SEDIMENT EXAMINED Urine RBC (0 - 5 /HPF) RARE Urine Mucus (FEW,NONE) FEW Urine Hemoglobin (NEG) NEG Urine Glucose (N MG/DL) NEG Assessment/Plan Assessment/Plan Imp: 1. Urinary retention. Likely multifactorial with prostatic hypertrophy and neurogenic causes due to spinal stenosis with neuropathy 2. Urinary incontinence. Likely overflow incontinence 3. ELAINE. Improved. Was likely due to urinary retention Plan: 1. Continue tamsulosin 2. Continue lizarraga for next 48 hours. Will likely then give void trial 3. If fails void trial was start intermittent cath and have nurses teach patient to cath himself until his neurologic status and plan is determined Consult Acknowledgment - Thank you for your consult request.
--- NOTE | 2017-11-11 10:53 | PN- Att Addend ---
Attending Addendum Attending Brief Note Patient seen and examined, feels the same. Patient was also seen by urology Dr. Quintanilla and he recommends to continue the Flomax and continue the Lizarraga for now. Patient should have a voiding trial in the next 48 hours. Patient was also seen by spine surgeon Dr. Hitchcock. Vital Signs Date Time Temp Pulse Resp B/P B/P Pulse O2 O2 Flow FiO2 Mean Ox Delivery Rate 11/12 851 82 112/68 11/11 0852 82 112/68 11/11 0603 97.7 79 20 134/64 95 08/04 2213 97.6 66 18 112/56 97 Room Air 08/ 1858 97.5 66 18 106/55 Room Air 11/10 1634 96 Room Air / 1633 98.1 64 18 112/66 96 Room Air / 1340 97.9 68 16 100/60 08/04 1202 97 Room Air / 1102 96.1 65 16 107/61 95 Room Air on exam: aox3, nad. patient has a lizarraga in. cv; s1, s2, rrr resp; clear abd; soft, nt, bs+ ext; no edema neuro: non focal. Laboratory Tests 11/11 11/10 0630 1158 Chemistry Sodium (137 - 145 mmol/L) 137 132 L Potassium (3.5 - 5.1 mmol/L) 4.2 5.2 H Chloride (98 - 107 mmol/L) 100 96 L Carbon Dioxide (22 - 30 mmol/L) 28 30 Anion Gap (5 - 16) 9 7 BUN (9 - 20 mg/dL) 40 H 61 H Creatinine (0.7 - 1.2 mg/dL) 1.3 H 1.7 H Estimated GFR (>60 ml/min) 53 L 39 L BUN/Creatinine Ratio (7 - 25 %) 30.8 H 35.9 H Glucose (65 - 99 mg/dL) 101 H Calcium (8.4 - 10.2 mg/dL) 9.3 Total Bilirubin (0.2 - 1.3 mg/dL) 1.8 H 2.3 H Direct Bilirubin (< 0.4 mg/dL) 0.4 AST (17 - 59 U/L) 119 H 162 H ALT (21 - 72 U/L) 370 H 444 H Alkaline Phosphatase (< 127 U/L) 200 H 192 H Total Protein (6.3 - 8.2 g/dL) 6.1 L 6.3 Albumin (3.5 - 5.0 g/dL) 3.4 L 3.5 Globulin (1.9 - 4.2 gm/dL) 2.8 Albumin/Globulin Ratio (1.1 - 2.2 %) 1.3 Coagulation PT (9.4 - 12.5 SEC) 13.3 H INR (0.90 - 1.17) 1.22 H Hematology CBC w Diff NO MAN DIFF REQ NO MAN DIFF REQ WBC (4.8 - 10.8 /CUMM) 4.1 L 4.5 L RBC (4.70 - 6.10 /CUMM) 4.22 L 4.05 L Hgb (14.0 - 18.0 G/DL) 13.4 L 12.6 L Hct (42 - 52 %) 39.1 L 37.4 L MCV (80.0 - 94.0 FL) 92.5 92.3 MCH (27.0 - 31.0 PG) 31.8 H 31.1 H MCHC (33.0 - 37.0 G/DL) 34.3 33.7 RDW (11.5 - 14.5 %) 13.9 13.6 Plt Count (130 - 400 /CUMM) 204 200 MPV (7.4 - 10.4 FL) 9.0 8.7 Gran % (42.2 - 75.2 %) 56.3 63.3 Lymphocytes % (20.5 - 51.1 %) 33.5 24.2 Monocytes % (1.7 - 9.3 %) 7.1 9.5 H Eosinophils % (0 - 5 %) 2.6 2.5 Basophils % (0.0 - 2.0 %) 0.5 0.5 Absolute Granulocytes (1.4 - 6.5 /CUMM) 2.3 2.8 Absolute Lymphocytes (1.2 - 3.4 /CUMM) 1.4 1.1 L Absolute Monocytes (0.10 - 0.60 /CUMM) 0.3 0.4 Absolute Eosinophils (0.0 - 0.7 /CUMM) 0.1 0.1 Absolute Basophils (0.0 - 0.2 /CUMM) 0 0 08/04 1145 Urines Urinalysis LIGHT H Urine Color (YEL,AMB,STR) YEL Urine Clarity (CLEAR) HAZY H Urine pH (5.0 - 8.0) 6.0 Ur Specific [place] (1.001 - 1.035) 1.020 Urine Protein (NEG,<30 MG/DL) NEG Urine Ketones (NEG) NEG Urine Nitrite (NEG) NEG Urine Bilirubin (NEG) NEG Urine Urobilinogen (0.1 - 1.0 EU/dl) 0.2 Ur Leukocyte Esterase (NEG) NEG Ur Microscopic SEDIMENT EXAMINED Urine RBC (0 - 5 /HPF) RARE Urine Mucus (FEW,NONE) FEW Urine Hemoglobin (NEG) NEG Urine Glucose (N MG/DL) NEG A/P: 77-year-old male with past medical history significant for spinal stenosis, status post surgeries, peripheral neuropathy, hypertension, chronic pain, presented with acute urinary retention, status post Lizarraga catheter and relief of the urinary retention. Patient is admitted with acute renal failure, abnormal transaminases. Recent MRI lumbar spine which was ordered by Dr. Hitchcock has shown worsening of degenerative disc disease in the lumbar spine as well as severe canal stenosis. Patient was seen by Dr. Hitchcock this morning. I had a lengthy discussion with Dr. Chong. He does not think that getting a CAT scan is necessary as an inpatient. He will arrange for that as an outpatient. I have also noted that patient's liver enzymes although slightly better but remains in the high range. Gabapentin at such a high dose can certainly lead to abnormal liver enzymes. Please follow-up on the right upper quadrant ultrasound. Please call GI consult for abnormal LFTs. Monitor LFTs. Continue Flomax. Patient was seen by Dr. Charles this morning. He recommends to continue the Lizarraga for another 48 hours and then give a voiding trial. Dr. Hitchcock recommends expedite elective surgery for patient's degenerative disc disease in the spine as well as spinal stenosis. Continue the rest of the medications. Patient to get a PT evaluation. Patient on heparin subcu for DVT prophylaxis.
--- NOTE | 2017-11-11 11:40 | PN- Housestaff ---
Subjective Follow-up For: ELAINE Urinary Retention Subjective: Afebrile overnight. Patient notes he has been experiencing pins and needles sensation in his bilateral lower extremities, currently on Gabapentin. Patient mentions he has not noticed any trouble with his urination today and denies any dysuria or pain with urination. Patient denies any abdominal pain, nausea, vomiting this morning. Patient mentions he did have one bowel movement this morning while going for the CT scan. Patient otherwise denies any other symptoms of chest pain, fevers, fatigue, and chills. Review of Systems Constitutional: Reports: see HPI. Objective Last 24 Hrs of Vital Signs/I&O Vital Signs Date Time Temp Pulse Resp B/P B/P Pulse O2 O2 Flow FiO2 Mean Ox Delivery Rate 11/11 0852 82 112/68 11/11 0852 82 112/68 / 0603 97.7 79 20 134/64 95 08/04 2213 97.6 66 18 112/56 97 Room Air 08/ 1858 97.5 66 18 106/55 Room Air / 1634 96 Room Air / 1633 98.1 64 18 112/66 96 Room Air /04 1340 97.9 68 16 100/60 08/04 1202 97 Room Air Intake & Output / 1600 08/05 0800 08/05 0000 Intake Total 70 250 Output Total 1400 400 Balance -1330 -150 Intake, IV 10 10 Intake, Oral 60 240 Output, Urine 1400 400 Patient 160 lb Weight Weight Reported by Patient Measurement Method Physical Exam General Appearance: Alert, Oriented X3, Cooperative, No Acute Distress Skin: No Rashes HEENT: Atraumatic, PERRLA Neck: Supple, No JVD Cardiovascular: Regular Rate, Normal S1, Normal S2 Lungs: Clear to Auscultation, Normal Air Movement Abdomen: Soft, No Tenderness Neurological: Normal Speech, Strength at 5/5 X4 Ext, Normal Tone, Sensation Intact Extremities: No Edema, Normal Pulses Assessment/Plan Assessment: CT ABD/PELVIS W/O CONTRAST - IMPRESSION: Diffuse sigmoid and scattered descending colon diverticulosis without diverticulitis. No bowel obstruction seen. The bladder is empty with a Cameron's catheter within. AST 119, ALT 370, Alk Phos 200 #Acute kidney injury, secondary to obstructive uropathy - Admit to general medicine for monitoring and assessment of vitals - Follow BUN/Cr in the morning - Cameron catheter placed, continue according to Urology (Dr. Quintanilla) - Continue Tamsulosin per Urology - Urology consultation #Spinal Canal stenosis - MRI 11/08/17 indicates multi-level spinal stenosis involvement - Pain management; neuropathy pain control via gabapentin - PT evaluation - Ortho consult (Dr. Hitchcock) rec. no other imaging at this time and thus medically stablize until can be seen as an outpatient #Elevated LFTS - Right upper quadrant U/S; LFTs still elevated - GI consult - Follow PT/INR - Avoid hepatotoxic agents including Acetaminophen DVT PPx. FC Problem List: 1. ELAINE (acute kidney injury) 2. Urinary retention Pain Ratin Pain Location: paresthesia b/l extremities Pain Goal: Pain 4 or less Pain Plan: Pain meds as needed Tomorrow's Labs & Rationales: Routine labs
--- NOTE | 2017-11-11 13:50 | ULTRASOUND REPORT ---
EXAMINATION: US ABDOMEN LIMITED CLINICAL INFORMATION: Transaminitis. COMPARISON: CT imaging of abdomen, 11/10/2017 TECHNIQUE: Real-time imaging of the right upper quadrant abdominal viscera. FINDINGS: PANCREAS: The pancreas is obscured by bowel gas. No focal lesions within the visualized portion of the atrophied pancreatic body. LIVER: The liver is suboptimally visualized due to its subcostal position. The liver is partially obscured by the overlying colon. The left hepatic lobe is difficult to evaluate. The visualized right hepatic lobe has normal size, contour and echotexture. No focal liver lesions are seen. GALLBLADDER: Surgically absent. COMMON BILE DUCT: Suboptimally visualized. The visualized proximal CBD is 0.4 cm diameter. RIGHT KIDNEY: The right kidney measured approximately 9.6 cm in length on the recent CT exam of 11/10/2017. On this ultrasound examination, the kidney has normal size, cortical thickness and echotexture. No evidence of focal parenchymal lesion, nephrolithiasis or hydronephrosis. FREE FLUID: None. IMPRESSION: 1. The liver is incompletely evaluated due to its subcostal position and overlying bowel gas from the colon. The visualized portions of the liver are normal. 2. Common bile duct is 0.4 cm diameter. 3. No acute sonographic findings in the visualized portion of the abdomen.
[2017-11-11 14:26] VITALS: BP 115/52
--- NOTE | 2017-11-11 21:57 | Cons- Orthopedic ---
General Information and HPI Consulting Request Date of Consult: 11/11/17 Requested By: Lilian Garza MD Reason for Consult: Lumbar spinal stenosis limiting function with question regarding contribution to primary presenting and admitting condition of urinary retention. Source of Information: patient, family (at office evaluation), old records (this admission and [facility] office) Exam Limitations: physical impairment History of Present Illness: Patient seen by Dr. Hitchcock as urgent (next AM) inpatient consultation on 11/11 @ 09:30 AM: History Of Present Illness: Sean Bertrand is a 77 year old white male who was admitted yesterdday (2017) to the [facility] Hospitalist service for urinary retention due to benign prostatic hypertrophy requiring catheterization. Spine consultation is requested because the patient has a significant history of spinal conditions and associated symptoms which have recently been evaluated and recommended for surgical intervention although final plans are still pending. The primary admitting medicine service and urology consultation service have documented concern that his current reason for hsopitalization (urinary retention) as well as some of his other primary complaints at admission ( difficulty ambulating with severe, intermittently debilitating and slowly progressive neurological symptoms and deficits) might now require urgent or emergent intervention. At present, it does not appear that he is significantly different neurologically from his recent office evaluation (which was already longstanding and stable for at least 4-6 months at that time based on history from both the patient and his family) and so I would continue to recommend the accelerated elective workup and treatment that was discussed with him at that visit. In brief review of his most significant spine history, he is S/P L4-L5 discectomy and fusion in 1962 followed by L5-S1 discectomy without fusion in 1983 (few details available) with more recent known severe multilevel lumbar spinal stenosis (significantly worsened on recent MRI compared to previous 2017 study), several years of progressively increasing claudicating symptoms, ambulatory limitation and more recent deficit as well as moderate left quadriceps weakness documented at his last office evaluation a few weeks ago. Additional Clinical And Non-Clinical History Relevant To Current Presentation: The patient's other past medical and surgical history, medications, allergies, other clinical and non-clinical history information from patient report and EMR documentation was reviewed to the extent available and relevant to his current orthopaedic spine evaluation and care. This history was compared to his office records and no significant or acute changes were evident to suggest the need for immediate inpatient spine care intervention or change to the treatment plan which had been discussed with the patient and his family at his last visit a few weeks ago. Except as noted above, there were no findings in this history of significance to his orthopaedic spine consultation assessment, treatment recommendations or management. Brief 14 system review was unremarkable, noncontributory to his orthopaedic spine care evaluation and unchanged from information documented in the orthopaedic outpatient office records and both the primary service admission and urology service consultation clinical reports. Refer to those documents for details. Allergies/Medications Allergies: Coded Allergies: No Known Allergies (10/22/17) Home Med List: Benazepril HCl 5 MG TABLET 0.5 TAB PO DAILY BP (Reported) Celecoxib (Celebrex) 200 MG CAPSULE 1 CAP PO DAILY PRN PAIN (Reported) Cholecalciferol (Vitamin D3) (Vitamin D) 2,000 UNIT TABLET 1 TAB PO DAILY VITAMIN SUPPORT (Reported) Cyanocobalamin (Vitamin B-12) 1,000 MCG TABLET 1 TAB PO DAILY VITAMIN SUPPORT (Reported) Cyclobenzaprine HCl 10 MG TABLET 1 TAB PO Q8P spasms Folic Acid 0.8 MG TABLET 1 TAB PO DAILY VITAMIN SUPPORT (Reported) Gabapentin (Neurontin) 300 MG CAPSULE 4 CAP PO TID NERVE PAIN (Reported) Hydrochlorothiazide 25 MG TABLET 0.5 TAB PO DAILY WATER RETENTION (Reported) Ibuprofen 600 MG TABLET 1 TAB PO Q6P PRN PAIN with food Magnesium Oxide (Magnesium) 500 MG CAPSULE 1 CAP PO DAILY SUPPLEMENT ( Reported) Meloxicam 7.5 MG TABLET 1 TAB PO Q12H PAIN/INFLAMMATION (Reported) [place]-3 Fatty Acids/Fish Oil (Fish Oil 1,000 MG Capsule) 340 MG-1,000 MG CAPSULE 1 CAP PO DAILY SUPPLEMENT (Reported) Tamsulosin HCl (Flomax) 0.4 MG CAP.ER.24H 1 CAP PO DAILY BPH (Reported) Tramadol HCl 50 MG TABLET 1 TAB PO Q8H PAIN (Reported) Turmeric Root Extract (Turmeric) 500 MG CAPSULE 1 CAP PO DAILY SUPPLEMENT ( Reported) Current Medications: Current Medications Sig/Shaneka Start time Last Medication Dose Route Stop Time Status Admin Acetaminophen 1,000 MG ONCE ONE 11/11 0715 DC 11/11 N/A 1 UNIT IV 11/11 0729 1530 Cholecalciferol 1,000 IU DAILY 11/11 0900 AC 11/11 PO 0852 Cyanocobalamin 1,000 MCG DAILY 11/11 899 AC 11/11 PO 0852 Cyclobenzaprine HCl 10 MG Q8P PRN 11/10 2044 AC 11/11 PO 1456 Fish Oil 1,050 MG DAILY 11/11 899 AC 11/11 PO 0852 Folic Acid 1 MG DAILY 11/11 899 AC 11/11 PO 0852 Gabapentin 800 MG TID 11/11 1400 AC 11/11 PO 211 Gabapentin 1,200 MG TID 11/100 DC 11/11 PO 0524 Heparin Sodium 5,000 UNIT Q8 11/10 2199 AC 11/11 (Porcine) SC 211 Hydrochlorothiazide 12.5 MG DAILY 11/11 899 AC 11/11 PO 0852 Lisinopril 5 MG DAILY 11/11 899 AC 11/11 PO 0852 Tamsulosin HCl 0.4 MG DAILY 11/10 2199 AC 11/11 PO 0852 Tramadol HCl 50 MG Q8H 11/10 2100 AC 11/11 PO 2113 Past History Medical History Blood Transfusion Hx: No Neurological: peripheral neuropathy, spinal stenosis EENT: NONE Cardiovascular: hypertension Respiratory: NONE Gastrointestinal: NONE Hepatic: NONE Renal: NONE Musculoskeletal: SPINAL STENOSIS Psychiatric: NONE Endocrine: NONE Blood Disorders: NONE Cancer(s): NONE 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 Home Services at Home: Home Health Aide Smoking Status: Former Smoker ETOH Use: denies use Illicit Drug Use: denies illicit drug use Exam & Diagnostic Data Vital Signs and I&O Vital Signs: AVSS Date Time Temp Pulse Resp B/P B/P Pulse O2 O2 Flow FiO2 Mean Ox Delivery Rate 11/11 1426 97.8 104 18 115/52 95 Room Air 11/12 851 82 112/68 11/12 851 82 112/68 11/11 08 Room Air 11/11 0603 97.7 79 20 134/64 95 11/10 2213 97.6 66 18 112/56 97 Room Air Intake & Output 11/11 0000 11/10 1600 11/10 0000 Intake Total 360 70 250 320 Output Total 750 7557 685 2291 Balance -390 -1330 -150 -2080 Intake, IV 10 10 Intake, Oral 360 60 240 320 Number 2 Bowel Movements Output, Urine 750 9123 944 0924 Patient 160 lb 160 lb Weight Weight Reported by Patient Reported by Patient Measurement Method Physical Exam: Comprehensive Physical Examination: A standardized comprehensive orthopaedic spine care consultation examination was performed per protocol based on his tolerance and capacity considering the circumstances and limitations of his primary admitting and other baseline clinical conditions. His basic general visual, palpation, mechanical and provocative anatomic and physiologic orthopaedic trunk and bilateral lower extremity assessment was normal. On standardized manual motor testing against passive resistance he was able to demonstrate normal power in all lower extremity major motor groups bilaterally except for the left quadriceps which was 4+/5 with some early fatigue on prolonged testing. This deficit was unchanged from recent office evaluation. His sensory examination showed lateral calf numbness extensing into the plantar more than the dorsum of the feet and approximately symmetrical which was again unchanged from recent office evaluation. The rest of his neurovascular examination was normal or similarly unchanged from recent office assessment. Sacral root distributions were not specifically assessed as there were no subjective symptoms, sentinel objective signs or radiologic findings to indicate a more comprehensive examination of this type. Musculoskeletal examination of the lumbar and posterior pelvic regions as well as both lower extremities was nonpainful, otherwise aymptomatic and normal to standard anatomic, physiologic and mechanical testing except as previously noted. Imaging Results: Radiologic Studies: His new MRI shows Severe spinal canal and foraminal stenosis at L3-L4 with moderate to severe stenosis at L1-L2, L2-L3 and L4-L5 as well. All of this has progressed somewhat since his previous 2013 study but the biggest change is the new presence of an L3-L4 disk herniation fragment on the left with migration cephalad behind the L3 vertebral body exacerbating his stenosis. There is diffuse marrow change which is likely red marrow replacement but warrants further evaluation as recommended by radiology. Prior to final surgical plans I would recommend a full series of upright radiographs and a CT scan as well as the bone scan recommended by radiology. These can be peformed as an outpatient unless he develops concern for acute neurological progression while in the hospital or urology is unable to treat his retention with standard measures because they feel the that a neurological component of his presentation is limiting the effectiveness of their normal treatments. He has a significant component of mechanical as well as claudicating back pain correlating with his severe multilevel degenerative disk space collapse and low grade spondylolisthesis at L4-L5. Consequently, stabilization following any decompressive procedure would be warranted. For the best balance of benefit versus risk I would recommend uninstrumented fusion and this has already been discussed with him. Assessment/Plan Assessment/Plan Asssessment/Plan: Sean Bertrand is a 77 year old white male who was admitted to the hospital for urinary retention but was requested for orthopaedic spine surgical consultation because of known severe multilevel spinal stenosis exacerbated by migrated and sequestered L3-L4 disk herniation fragment associated with severe and progressive mechanical motion-related and claudicating back and radiating bilateral lower extremity pain, dysesthesia, ambulatory difficulty and left quadricep weakness which was marginally controlled for several years with pain management injections but has now become steadily worseing and refractory. I would recommend that his urinary retention be treated separately so as to optimize him as much as possible for possible multilevel decompression and uninstrumented fusion which I would continue to arrange on an accelerated elective basis but does not, at present, require urgent or emergent surgical treatment. We will sign off. Please have the patient follow-up in Dr. Hitchcock 's office as previously arranged to finalize arrangements for surgery. Please reconsult if the patient's is unable to mobilize similar to his preadmission status or urology feels that the neurological contribution to his retention precludes successful treatment by standard means. Thank you for consulting Dr. Hitchcock and [facility] regarding Mr. Bertrand and his orthopaedic spine care needs as it relates to his multilevel lumbar spinal stenosis and associated claudicating symptoms and stable but functionally limiting physiological deficits. Please do not hesitate to contact my office to arrange follow-up or for any questions or concerns regarding the care and rehabilitation of his spinal condition. Problem List: 1. Spinal stenosis Consult Acknowledgment - Thank you for your consult request.
[2017-11-11 23:04] VITALS: BP 101/54
[2017-11-12 06:45] VITALS: BP 118/54
--- NOTE | 2017-11-12 07:24 | PN- Housestaff ---
Derick Abdi 11/12/17 0723: Subjective Follow-up For: Post-renal ELAINE Urinary Retention Subjective: Afebrile overnight. Patient had no concerns last night and is currently eating his breakfast. Patient says he has not experienced any current abdominal pain or difficulty with urination, and still has his lizarraga catheter in place. Patient mentions he is not sure he will be able to wait to visit Dr. Hitchcock as an outpatient due to his inability to walk when he first came to the hospital, and that since he uses a walker at home he is concerned of waiting for any surgery elective surgery prospectively. Patient also would like to know if he can receive his cortisone injection that he usually receives outpatient. Patient mentions he gets an steroid injection at Dr. Hitchcock's office in his right buttock to relieve his pain in the right leg. Patient states he presently can not walk due to a combination of pain in his right buttock, pain in both of his calves, and weakness upon standing. Patient otherwise denies any current fevers, chills, fatigue, dyspnea, and chest pain. Review of Systems Constitutional: Reports: see HPI. Objective Last 24 Hrs of Vital Signs/I&O Vital Signs Date Time Temp Pulse Resp B/P B/P Pulse O2 O2 Flow FiO2 Mean Ox Delivery Rate / 0922 74 118/54 / 0922 74 118/54 08/ 0645 97.5 74 20 118/54 96 08/05 2304 97.6 82 20 101/54 93 Room Air 08/ 1426 97.8 104 18 115/52 95 Room Air Intake & Output 11/12 1600 11/12 0800 08 0000 Intake Total 100 100 Output Total 550 Balance -450 100 Intake, Oral 100 100 Number 1 1 Bowel Movements Output, Urine 550 Physical Exam General Appearance: Alert, Oriented X3, Cooperative, No Acute Distress HEENT: Atraumatic Neck: Supple, No JVD Cardiovascular: Regular Rate, Normal S1, Normal S2 Lungs: Clear to Auscultation, Normal Air Movement Abdomen: Soft, No Tenderness Neurological: Normal Speech, Strength 4/5 in bilateral lower extremities Other Physical Findings: Lizarraga inserted. Assessment/Plan Assessment: CT ABD/PELVIS W/O CONTRAST - IMPRESSION: Diffuse sigmoid and scattered descending colon diverticulosis without diverticulitis. No bowel obstruction seen. The bladder is empty with a Lizarraga's catheter within. Abdominal US IMPRESSION: 1. The liver is incompletely evaluated due to its subcostal position and overlying bowel gas from the colon. The visualized portions of the liver are normal. 2. Common bile duct is 0.4 cm diameter. 3. No acute sonographic findings in the visualized portion of the abdomen. AST 94, ALT 297, Alk Phos 175 #Acute kidney injury, secondary to obstructive uropathy - Admit to general medicine for monitoring and assessment of vitals - Follow up with BUN/Cr, recent Cr 1.5 - Lizarraga catheter placed, continue according to Urology (Dr. Quintanilla) until tmrw 11/13 and then trial a voiding trial; if patient fails void trail, will start patient on intermittent catherization - Continue Tamsulosin per Urology - Urology consultation #Spinal Canal stenosis - MRI 11/08/17 indicates multi-level spinal stenosis involvement - Pain management; neuropathy pain control via gabapentin - PT evaluation, re-ordered 11/12 and activity changed to Out of Bed; patient was unable to work with PT and stated continued pain/weakness of b/l lower extremities - Ortho consult (Dr. Hitchcock) rec. no other imaging at this time and thus medically stablize until can be seen as an outpatient - performed Epidural (Intralaminar) and Piriformis injections, June and July, on the patient prior. Dr. Hitchcock confirms he wants to do an expediated decompressive surgery as an outpatient and that, if needed, patient can receive an epidural injection as in inpatient; patient prefers a Piriformis injection at this point to relieve his pain in the buttocks and b/l legs (calves ) -Pt is followed by #Elevated LFTS - Right upper quadrant U/S non-specific with no acute findings; LFTs are trending down - Hepatitis Panel, nonreactive - Follow PT/INR - Avoid hepatotoxic agents including Acetaminophen DVT PPx. FC Problem List: 1. ELAINE (acute kidney injury) 2. Urinary retention 3. Spinal stenosis Pain Ratin Pain Location: b/l leg pain Pain Goal: Pain 4 or less Pain Plan: gabapentin, other pain meds as needed Tomorrow's Labs & Rationales: routine labs Laura Musa MD 11/12/17 0944: Attending MD Review Statement Attending Statement Attending MD Statement: examined this patient, discuss w/resident/PA/NIKE ATHLETE, agreed w/resident/PA/NIKE ATHLETE, reviewed EMR data (avail), discussed with nursing, discussed with case mgmt, reviewed images Attending Assessment/Plan: 77-year-old male severe spinal stenosis, peripheral neuropathy and hypertension who is here with acute obstructive uropathy with acute and urinary retention. Appreciate urology consult and right now they feel it is multifactorial. Will keep the Lizarraga until tomorrow and then give him a trial of voiding. His LFTs are slowly coming down, ultrasound was negative for any space-occupying lesion, but I attributing this to the high-dose Neurontin and slowly weaning off the Neurontin. Will put in a PT eval and follow closely.
[2017-11-12 08:14] LABS: ABSOLUTE BASOPHIL COUNT 0 /CUMM (0.0-0.2); ABSOLUTE EOSINOPHIL COUNT 0.1 /CUMM (0.0-0.7); ABSOLUTE GRANULOCYTE CT 2.6 /CUMM (1.4-6.5); ABSOLUTE LYMPH COUNT 1.4 /CUMM (1.2-3.4); ABSOLUTE MONOCYTE COUNT 0.3 /CUMM (0.10-0.60); BASOPHIL % 0.5 % (0.0-2.0); EOSINOPHIL % 2.7 % (0-5); GRANULOCYTE % 58.6 % (42.2-75.2); HEMATOCRIT 38.8 % (42-52); MEAN CORPUSCULAR HGB 31.7 PG (27.0-31.0); MEAN CORPUSCULAR HGB CONC 34.4 G/DL (33.0-37.0); MEAN CORPUSCULAR VOLUME 92.3 FL (80.0-94.0); MEAN PLATELET VOLUME 9.1 FL (7.4-10.4); PLATELET COUNT 229 /CUMM (130-400); RBC DISTRIBUTION WIDTH 13.8 % (11.5-14.5); RED BLOOD CELL CT 4.21 /CUMM (4.70-6.10); WHITE BLOOD CELL COUNT 4.4 /CUMM (4.8-10.8)
--- NOTE | 2017-11-12 08:15 | PN- Student ---
Subjective Subjective: Pt seen and examined at bedside. He reports sleeping well overnight with no acute events. He denies chest pain, SOB, abdominal pain or discomfort, nausea, leg pain. Pt reports diarrhea overnight though he could not quantify number or severity of episodes. He also reports his usual back pain. Objective Objective: Vital Signs Date Time Temp Pulse Resp B/P B/P Pulse O2 O2 Flow FiO2 Mean Ox Delivery Rate 11/12 0645 97.5 74 20 118/54 96 / 2304 97.6 82 20 101/54 93 Room Air 11/11 1426 97.8 104 18 115/52 95 Room Air 11/11 0852 82 112/68 11/11 0852 82 112/68 Intake & Output 11/12 1600 11/12 0800 11/12 0000 Intake Total 100 Output Total 550 Balance -550 100 Intake, Oral 100 Number 1 1 Bowel Movements Output, Urine 550 PE: Gen - NAD Neuro - AOx4 CV - RRR no MRG Pulm - CTA BL Abd - soft, nontender, nondistended Ext - warm and well perfused, no edema, PT/DP pulses 2+ BL Cameron - putting out clear yellow urine, not cloudy Results Results: Laboratory Tests 11/12/17 0725: Sodium Pending, Potassium Pending, Chloride Pending, Carbon Dioxide Pending, Anion Gap Pending, BUN Pending, Creatinine Pending, BUN/Creatinine Ratio Pending , Total Bilirubin Pending, Direct Bilirubin Pending, AST Pending, ALT Pending, Alkaline Phosphatase Pending, Total Protein Pending, Albumin Pending, CBC w Diff Pending, WBC Pending, RBC Pending, Hgb Pending, Hct Pending, MCV Pending, MCH Pending, MCHC Pending, RDW Pending, Plt Count Pending, MPV Pending 11/11/17 0630: Anion Gap 9, Estimated GFR 53 L, BUN/Creatinine Ratio 30.8 H, Total Bilirubin 1.8 H, Direct Bilirubin 0.4, AST 119 H, ALT 370 H, Alkaline Phosphatase 200 H, Total Protein 6.1 L, Albumin 3.4 L, PT 13.3 H, INR 1.22 H, CBC w Diff NO MAN DIFF REQ, RBC 4.22 L, MCV 92.5, MCH 31.8 H, MCHC 34.3, RDW 13.9, MPV 9.0, Gran % 56.3, Lymphocytes % 33.5, Monocytes % 7.1, Eosinophils % 2.6, Basophils % 0.5, Absolute Granulocytes 2.3, Absolute Lymphocytes 1.4, Absolute Monocytes 0.3 , Absolute Eosinophils 0.1, Absolute Basophils 0 11/10/17 1158: Anion Gap 7, Estimated GFR 39 L, BUN/Creatinine Ratio 35.9 H, Glucose 101 H, Calcium 9.3, Total Bilirubin 2.3 H, AST 162 H, ALT 444 H, Alkaline Phosphatase 192 H, Total Protein 6.3, Albumin 3.5, Globulin 2.8, Albumin/ Globulin Ratio 1.3, CBC w Diff NO MAN DIFF REQ, RBC 4.05 L, MCV 92.3, MCH 31.1 H, MCHC 33.7, RDW 13.6, MPV 8.7, Gran % 63.3, Lymphocytes % 24.2, Monocytes % 9.5 H, Eosinophils % 2.5, Basophils % 0.5, Absolute Granulocytes 2.8, Absolute Lymphocytes 1.1 L, Absolute Monocytes 0.4, Absolute Eosinophils 0.1, Absolute Basophils 0 11/10/17 1145: Urinalysis LIGHT H, Urine Color YEL, Urine Clarity HAZY H, Urine pH 6.0, Ur Specific Kamas 1.020, Urine Protein NEG, Urine Ketones NEG, Urine Nitrite NEG, Urine Bilirubin NEG, Urine Urobilinogen 0.2, Ur Leukocyte Esterase NEG, Ur Microscopic SEDIMENT EXAMINED, Urine RBC RARE, Urine Mucus FEW, Urine Hemoglobin NEG, Urine Glucose NEG Microbiology 11/10 1145 URINE ROUT: Urine Culture - RES Assessment/Plan Assessment: Pt is a 77YOM with PMH of spinal stenosis and peripheral neruopathy who presented to the ED 2 days ago with 1 day of abdominal distension and a mass preceded by 2 wks of urinary leakage and abdominal discomfort. He was found to have a distended bladder and Cameron catheter drained ~1700cc clear yellow urine. At that time, pt was found to have elevated BUN/Cr, elevated LFTs, and longstanding neuropathy. Urine Cx is negative thus far and renal US shows no acute pathologies. BUN/Cr and LFTs are overall downtrending and RUQ US and CT A/ P show no abnormalities. Ortho consult indicated no acute surgical intervention is required at this time. Problems/Plan 1. ELAINE ELAINE likely d/t patient's urinary retention. Retention likely multifactorial probably secondary to BPH and neuropathy d/t spinal stenosis. - Continue trending BUN/Cr - Uro recommends removal of Cameron with void trial on 11/13/17 2. Urinary leakage and retention Pt is stable with Cameron catheter. Leakage likely d/t overflow incontinence and retention likely d/t BPH. - Void trial as per urology on 11/13/17; reassess if pt unable to void on his own at that time. - continue tamsulosin 3. Transaminitis Etiology of pt's transaminitis is unclear but does not seem to be of any acute infections or structural abnormalities. Pt is also not displaying any encephalopathy, INR and PT are therapeutic on heparin, Cr elevated d/t ELAINE. Chronic hep B and C have been r/o with hepatitis serology. As pt's MELD Score is 14 points based on today's labs, we will continue investigating possible etiologies. - Hepatitis serology is nonreactive for Hep A IgM Ab, Hep Bs Ag, Hep B core IgM Ab, Hep C Ab - Continue trending LFTs - monitor for signs of encephalopathy 4. Spinal stenosis Pt has lumbar stenosis in L3 and L4. He continues to complain of pain and requests cortisone shots to alleviate the pain as this has worked for him in the past. - Discuss with ortho/neurosurgery regarding pt's pain management requests - goal is to continue pain management Diet: Regular DVT: Heparin Code: Full
[2017-11-12 14:33] VITALS: BP 110/58
[2017-11-12 22:17] VITALS: BP 110/60
[2017-11-13 06:28] VITALS: BP 118/64
--- NOTE | 2017-11-13 07:20 | PN- Housestaff ---
Derick Abdi 11/13/17 0720: Subjective Follow-up For: Post-renal ELAINE Urinary Retention Subjective: Afebrile overnight. Patient slept well last night and notes he does not feel any pain today in both his buttocks and calves. Patient mentions he will try and work with PT today to improve his functional status. Patient mentions he still has some loose stools but can not recollect how many bowel movements he has had overnight. Patient otherwise denies any fevers, chills, fatigue, abdominal pain, chest pain, and dyspnea. Review of Systems Constitutional: Reports: see HPI. Objective Last 24 Hrs of Vital Signs/I&O Vital Signs Date Time Temp Pulse Resp B/P B/P Pulse O2 O2 Flow FiO2 Mean Ox Delivery Rate 11/13 0628 97.4 68 20 118/64 94 Room Air 11/12 2217 97.6 87 18 110/60 94 Room Air 11/12 1433 99.3 76 18 110/58 97 11/12 1218 Room Air 11/12 0922 74 118/54 11/12 0922 74 118/54 Intake & Output 11/13 0800 11/13 0000 11/12 1600 Intake Total 1300 Output Total 679 278 7019 Balance -700 -700 200 Intake, Oral 1300 Number 0 4 Bowel Movements Output, Urine 879 898 0655 Physical Exam General Appearance: Alert, Oriented X3, Cooperative, No Acute Distress HEENT: Atraumatic Cardiovascular: Regular Rate, Normal S1, Normal S2 Lungs: Clear to Auscultation, Normal Air Movement Abdomen: Soft, No Tenderness Neurological: Normal Speech, strength 5/5 in extension of knee; strength 4/5 in plantar flexion of left foot and 5/5 in plantar flexion of right foot Assessment/Plan Assessment: CT ABD/PELVIS W/O CONTRAST - IMPRESSION: Diffuse sigmoid and scattered descending colon diverticulosis without diverticulitis. No bowel obstruction seen. The bladder is empty with a Cameron's catheter within. Abdominal US IMPRESSION: 1. The liver is incompletely evaluated due to its subcostal position and overlying bowel gas from the colon. The visualized portions of the liver are normal. 2. Common bile duct is 0.4 cm diameter. 3. No acute sonographic findings in the visualized portion of the abdomen. AST 100, ALT 281, Alk Phos 165 #Acute kidney injury, secondary to obstructive uropathy - Admit to general medicine for monitoring and assessment of vitals - Follow up with BUN/Cr, recent Cr 1.2 - Cameron catheter discontinued, voiding trial for 6 hours; if patient fails to void or has a post-void residual of 400 ml or greater on bladder scan, will perform intermittent caths for patient - Continue Tamsulosin per Urology - Urology consultation #Spinal Canal stenosis - MRI 11/08/17 indicates multi-level spinal stenosis involvement - Pain management; neuropathy pain control via gabapentin - PT evaluation, re-ordered 11/12 and activity changed to Out of Bed; patient was unable to work with PT and stated continued pain/weakness of b/l lower extremities - Ortho consult (Dr. Hitchcock) rec. no other imaging at this time and thus medically stablize until can be seen as an outpatient - performed Epidural (Intralaminar) and Piriformis injections, June and July, on the patient prior. Dr. Hitchcock confirms he wants to do an expediated decompressive surgery as an outpatient and that, if needed, patient can receive an epidural injection as in inpatient; patient prefers a Piriformis injection at this point to relieve his pain in the buttocks and b/l legs (calves ) -Bone scan to be completed tmrw 11/14 in the AM, assess for any osteoblastic lesions (MRI 11.08.17 showed extensive marrow heterogeneity, differnential included heterogenous red marrow replacement and malignant marrow replacement; rec. correlation with bone scan) #Elevated LFTS - Right upper quadrant U/S non-specific with no acute findings; LFTs are trending down - Hepatitis Panel, nonreactive - Follow PT/INR - Avoid hepatotoxic agents including Acetaminophen DVT PPx. FC Problem List: 1. ELAINE (acute kidney injury) 2. Urinary retention 3. Spinal stenosis Pain Ratin Pain Location: NA Pain Goal: Remain pain free Pain Plan: NA Tomorrow's Labs & Rationales: Routine labs Laura Musa MD 11/13/17 1001: Attending MD Review Statement Attending Statement Attending MD Statement: examined this patient, discuss w/resident/PA/FOOD PREPARATION WORKER, agreed w/resident/PA/FOOD PREPARATION WORKER, reviewed EMR data (avail), discussed with nursing, discussed with case mgmt, reviewed images Attending Assessment/Plan: Appreciate urology follow-up. We are going to take out his catheter today and give him a trial of voiding. I am concerned that his MRI did see a bone marrow iatrogenically and malignancy was in the differential. Will get a bone scan to make sure this is not metastatic prostate CA. If he voids and the bone scan is negative then the plan will likely be rehab with close outpatient neurology and neurosurgical follow-up. His LFTS remain elevated and it is unclear why. They are stable and will need outpatient follow-up as well.
--- NOTE | 2017-11-13 07:21 | Discharge Summary ---
Visit Information Visit Dates Admission Date: 11/10/17 Discharge Date: 11/14/17 Hospital Course Course Attending Physician: Lencho GARCIA,Laura Francisco Primary Care Physician: Alberto GARCIAMamta Hospital Course: Patient is a 77 y/o male with PMH of HTN, multilevel spinal canal stenosis, peripheral neuropathy, hypertension, chronic pain, who presented with lower abdominal mass and discomfort since morning of admission. Patient is being admitted in the general medical floor for the management of following issues: 1. ELAINE 2/2 to Obstructive Uropathy Patient presented with abdominal disomfort. Creatinine on admission was 1.7 which was above baseline of 1.2. Cameron was placed in ED and emptied 2.5L of urine. Patient was evaluated by urology. Urinary retention is attributed to BPH and neurogenic bladder. Cameron was kept in for 48 hours followed by voiding trial. Patient was unable to void and required straight cath. Prior to discharge patient was educated on straight cathing himself however will require further teaching. - tamsulosin increased to 0.4mg BID - follow up with Dr. Charles - patient will require VNA and continual teaching for straight cath 2. Multilevel spinal canal stenosis with severe peripheral neuropathy, no clinical cauda equina Patient seems to be having worsening of his neurologic symptoms, although he does not seem to have cauda equina clinically right now, given his worsening gait, multiple falls, and his neurogenic bladder. MRI was obtained as recent as 11/08/17, which shows extensive disease of the spine. Patient was evaluated by ortho and neurosurgery. Patient's pain was controlled with lidocaine patch, flexaril, and tramadol. Patient will likely require elective outpatient surgery with Dr. Hitchcock. PT worked with patient prior to discharge and recommended STR. Bone scan doen which was negative for metastasis - follow up with Dr. Hitchcock - continue lidocaine, flexaril and tramadol for pain control - gabapentin is being weaned off due to abnormal LFTs 3. Transaminitis Presented with elevated LFTs. Abdominal ultrasound and hepatitis panel was normal. Abnormal LFTs are likely attributed to gabapentin. Patient is being tapered off. LFTs trended down prior to discharge. - taper off gabapentin - repeat LFTs in 2 weeks 2. Chronic conditions: HTN, BPH - continue home medications Allergies: Coded Allergies: No Known Allergies (10/22/17) Pertinent Lab Results: SERVICE DATE: 11/10/17- EXAM TYPE: CAT - CT ABD & PELVIS W/O IV CONTRAS EXAMINATION: CT ABDOMEN AND PELVIS WITHOUT CONTRAST CLINICAL INFORMATION: Urinary retention. COMPARISON: None TECHNIQUE: Multidetector volumetric imaging was performed from the superior aspect of the liver through the pubic symphysis. Sagittal and coronal reformatted images were obtained on the technologist's workstation. DLP: 304 mGy-cm FINDINGS: LUNG BASES: Minimal atelectasis scarring seen in the left lung base. Heart size appears normal. There are coronary artery calcifications present. LIVER, GALLBLADDER, AND BILIARY TREE: The liver is normal in size, shape, and attenuation. No focal hepatic lesion or biliary ductal dilatation is present. Gallbladder has been surgically removed. PANCREAS: Unremarkable. SPLEEN: Unremarkable. ADRENAL GLANDS: Unremarkable. KIDNEYS AND URETERS: The kidneys are normal in size, shape, and attenuation. No hydronephrosis, hydroureter, or calculi seen. No perinephric stranding. BLADDER: The bladder is empty with a Cameron's catheter within. GASTROINTESTINAL TRACT: Diffuse sigmoid and scattered descending colon diverticulosis without diverticulitis. There is stool and air-fluid levels seen throughout the colon without distention. The small bowel loops are normal caliber. No free air or free fluid seen. ABDOMINAL WALL: No significant hernia is appreciated. LYMPH NODES: Is scattered retroperitoneal 6 mm or less lymph nodes in the retroperitoneum. VASCULAR: Unremarkable. PELVIC VISCERA: There is no free fluid of free air. No pelvic mass. The prostate gland is normal size. OSSEOUS STRUCTURES: There are degenerative disc changes L1-L2 through L4-L5 disc levels with moderate ventral spondylosis. No lytic or sclerotic process seen. IMPRESSION: Diffuse sigmoid and scattered descending colon diverticulosis without diverticulitis. No bowel obstruction seen. The bladder is empty with a Cameron's catheter within. SERVICE DATE: 11/11/17-06 EXAM TYPE: US - US-LIMITED ABDOMEN EXAMINATION: US ABDOMEN LIMITED CLINICAL INFORMATION: Transaminitis. COMPARISON: CT imaging of abdomen, 11/10/2017 TECHNIQUE: Real-time imaging of the right upper quadrant abdominal viscera. FINDINGS: PANCREAS: The pancreas is obscured by bowel gas. No focal lesions within the visualized portion of the atrophied pancreatic body. LIVER: The liver is suboptimally visualized due to its subcostal position. The liver is partially obscured by the overlying colon. The left hepatic lobe is difficult to evaluate. The visualized right hepatic lobe has normal size, contour and echotexture. No focal liver lesions are seen. GALLBLADDER: Surgically absent. COMMON BILE DUCT: Suboptimally visualized. The visualized proximal CBD is 0.4 cm diameter. RIGHT KIDNEY: The right kidney measured approximately 9.6 cm in length on the recent CT exam of 11/10/2017. On this ultrasound examination, the kidney has normal size, cortical thickness and echotexture. No evidence of focal parenchymal lesion, nephrolithiasis or hydronephrosis. FREE FLUID: None. IMPRESSION: 1. The liver is incompletely evaluated due to its subcostal position and overlying bowel gas from the colon. The visualized portions of the liver are normal. 2. Common bile duct is 0.4 cm diameter. 3. No acute sonographic findings in the visualized portion of the abdomen. Disposition Summary Disposition Principal Diagnosis: Spinal Stenosis, severe Additional Diagnosis: ELAINE 2/2 Obstructive Uropathy, H/O BPH, H/O HTN Transaminitis Discharge Disposition: SNF Discharge Instructions General Discharge Information Code Status: Full Code Patient's Diet: Regular Diet Patient's Activity: Self-Limited Follow-Up Instructions/Appts: Please follow up with your PCP in the next 7 days. Please follow up with the Urologist (Dr. Charles) within a week. Please follow up with the Orthopedic Surgeon (Dr. Hitchcock) in 1 week. Please note your gabapentin is slowly being tapered. Please follow up with your pcp and have repeat blood work to assess your liver function tests in 2 weeks. Medications at Discharge Discharge Medications: Stop taking the following medications: Gabapentin (Neurontin) 300 MG CAPSULE ORAL THREE TIMES DAILY Tamsulosin HCl (Flomax) 0.4 MG CAP.ER.24H ORAL DAILY Ibuprofen (Ibuprofen) 600 MG TABLET ORAL EVERY SIX HOURS NEEDED as needed for PAIN Qty = 28 Tramadol HCl (Tramadol HCl) 50 MG TABLET ORAL Q8H Meloxicam (Meloxicam) 7.5 MG TABLET ORAL Q12H Continue taking these medications: Celecoxib (Celebrex) 200 MG CAPSULE 1 Capsule ORAL DAILY as needed for PAIN Comments: NOT GIVEN IN HOSPITAL Magnesium Oxide (Magnesium) 500 MG CAPSULE 1 Capsule ORAL DAILY Hydrochlorothiazide (Hydrochlorothiazide) 25 MG TABLET 0.5 Tablet ORAL DAILY Folic Acid (Folic Acid) 0.8 MG TABLET 1 Tablet ORAL DAILY Cholecalciferol (Vitamin D3) (Vitamin D) 2,000 UNIT TABLET 1 Tablet ORAL DAILY Comments: Last Taken: 11/14/17 Time: 9:00 AM Cyanocobalamin (Vitamin B-12) 1,000 MCG TABLET 1 Tablet ORAL DAILY Comments: Last Taken: 11/14/17 Time: 9:00AM [place]-3 Fatty Acids/Fish Oil (Fish Oil 1,000 MG Capsule) 340 MG-1,000 MG CAPSULE 1 Capsule ORAL DAILY Turmeric Root Extract (Turmeric) 500 MG CAPSULE 1 Capsule ORAL DAILY Benazepril HCl (Benazepril HCl) 5 MG TABLET 0.5 Tablet ORAL DAILY Comments: NOT GIVEN IN HOSPITAL Cyclobenzaprine HCl (Cyclobenzaprine HCl) 10 MG TABLET 1 Tablet ORAL EVERY 8 HOURS NEEDED Qty = 21 Start taking the following new medications: Tramadol HCl (Tramadol HCl) 50 MG TABLET 50 Milligram ORAL EVERY 6 HOURS NEEDED as needed for PAIN SCALE 7-10 ( SEVERE) Qty = 10 No Refills Lidocaine (Lidoderm) 5 % ADH..PATCH 1 Patch On the skin Q24H as needed for back pain Qty = 30 No Refills Instructions: KEEP ON FOR 12 HOURS AND OFF FOR 12 HOURS Gabapentin (Gabapentin) 600 MG TABLET 1 Tablet ORAL THREE TIMES DAILY Qty = 10 No Refills Comments: Please follow up with pcp. Taper off gabapentin due to abnormal LFTs. Tamsulosin HCl (Flomax) 0.4 MG CAP.ER.24H 0.4 Milligram ORAL TWICE DAILY Qty = 30 No Refills Copies To: Coretta GARCIA,Alexander Farrell; Maxine GARCIA,Keenan Nieves; Melvin GARCIA,Martin Francisco; Alberto GARCIA,Mamta
--- NOTE | 2017-11-13 07:23 | PN- Urology ---
Subjective Subjective: Patient sleeping Objective Vital Signs and I&Os Vital Signs Date Time Temp Pulse Resp B/P B/P Pulse O2 O2 Flow FiO2 Mean Ox Delivery Rate 11/14 627 97.4 68 20 118/64 94 Room Air 11/12 2217 97.6 87 18 110/60 94 Room Air 11/12 1433 99.3 76 18 110/58 97 06 1218 Room Air 11/12 0922 74 118/54 11/12 921 74 118/54 Intake & Output 11/13 0811/12 0000 11/11 1600 Intake Total 1300 100 100 360 Output Total 297 299 0704 550 750 Balance -700 -700 200 -450 100 -390 Intake, Oral 1300 100 100 360 Number 0 4 1 1 2 Bowel Movements Output, Urine 267 907 5476 [address] Draining clear yellow urine Laboratory Tests 11/12 724 Chemistry Sodium (137 - 145 mmol/L) 138 Potassium (3.5 - 5.1 mmol/L) 4.0 Chloride (98 - 107 mmol/L) 102 Carbon Dioxide (22 - 30 mmol/L) 31 H Anion Gap (5 - 16) 6 BUN (9 - 20 mg/dL) 42 H Creatinine (0.7 - 1.2 mg/dL) 1.5 H Estimated GFR (>60 ml/min) 45 L BUN/Creatinine Ratio (7 - 25 %) 28.0 H Total Bilirubin (0.2 - 1.3 mg/dL) 1.0 Direct Bilirubin (< 0.4 mg/dL) 0.3 AST (17 - 59 U/L) 94 H ALT (21 - 72 U/L) 297 H Alkaline Phosphatase (< 127 U/L) 175 H Total Protein (6.3 - 8.2 g/dL) 6.1 L Albumin (3.5 - 5.0 g/dL) 3.3 L Hematology CBC w Diff NO MAN DIFF REQ WBC (4.8 - 10.8 /CUMM) 4.4 L RBC (4.70 - 6.10 /CUMM) 4.21 L Hgb (14.0 - 18.0 G/DL) 13.3 L Hct (42 - 52 %) 38.8 L MCV (80.0 - 94.0 FL) 92.3 MCH (27.0 - 31.0 PG) 31.7 H MCHC (33.0 - 37.0 G/DL) 34.4 RDW (11.5 - 14.5 %) 13.8 Plt Count (130 - 400 /CUMM) 229 MPV (7.4 - 10.4 FL) 9.1 Gran % (42.2 - 75.2 %) 58.6 Lymphocytes % (20.5 - 51.1 %) 30.9 Monocytes % (1.7 - 9.3 %) 7.3 Eosinophils % (0 - 5 %) 2.7 Basophils % (0.0 - 2.0 %) 0.5 Absolute Granulocytes (1.4 - 6.5 /CUMM) 2.6 Absolute Lymphocytes (1.2 - 3.4 /CUMM) 1.4 Absolute Monocytes (0.10 - 0.60 /CUMM) 0.3 Absolute Eosinophils (0.0 - 0.7 /CUMM) 0.1 Absolute Basophils (0.0 - 0.2 /CUMM) 0 Serology Hepatitis A IgM Ab (NONREACTIVE) NONREACTIVE Hep Bs Antigen (NONREACTIVE) NONREACTIVE Hep B Core IgM Ab Conf (NONREACTIVE) NONREACTIVE Hepatitis C Antibody (NONREACTIVE) NONREACTIVE Assessment/Plan Assessment/Plan Imp: 1. Urinary retention. Likely multifactorial with a neuroenic component Plan: 1. Continue tamsulosin 2. OK to remove lizarraga for voiding trial and check pvr by bladder scan 3. Would str cath for pvr above 400 cc
--- NOTE | 2017-11-13 08:12 | Patient Discharge Instructions ---
Discharge Instructions General Discharge Information You were seen/treated for: Post-renal Acute Kidney Injury Urinary Retention Spinal Stenosis You had these procedures: Abd/Pelvis CT Abdominal Ultrasound Nuclear Medicine, Bone Scan Watch for these problems: If you experience any worsening symptoms of weakness and/or back pain please visit your PCP. If you develop symptoms of abdominal pain, burning on urination, shortness of breath, or chest pain please visit with your PCP. Special Instructions: Please follow up with your PCP in the next 7 days. Please follow up with the Urologist (Dr. Charles) within a week. Please follow up with the Orthopedic Surgeon (Dr. Hitchcock) in 1 week. Please note your gabapentin is slowly being tapered. Please follow up with your pcp and have repeat blood work to assess your liver function tests in 2 weeks. Diet Continue normal diet: Yes Recommended Diet: Regular Activity Full Activity/No Limits: No Activity Self Limited: Yes Acute Coronary Syndrome Inclusion Criteria At DC or during hospital stay patient has or had the following: ACS DIAGNOSIS No Discharge Core Measures Meds if any: Prescribed or Continued at Discharge Meds if any: NOT Prescribed or Continued at Discharge Congestive Heart Failure Inclusion Criteria At DC or during hospital stay patient has or had the following: CHF DIAGNOSIS No Discharge Core Measures Meds if any: Prescribed or Continued at Discharge Meds if any: NOT Prescribed or Continued at Discharge Cerebrovascular accident Inclusion Criteria At DC or during hospital stay patient has or had the following: CVA/TIA Diagnosis No Discharge Core Measures Meds if any: Prescribed or Continued at Discharge Meds if any: NOT Prescribed or Continued at Discharge Venous thromboembolism Inclusion Criteria VTE Diagnosis No VTE Type NONE VTE Confirmed by (Test) NONE Discharge Core Measures - Per Current guidelines, there needs to be overlap - treatment for the first 5 days of Warfarin therapy. - If discharged on Warfarin prior to 5 days of - overlap therapy, the patient will need to be - assessed for post discharge needs including - *Post discharge parental anticoagulation - *Warfarin and/or parental anticoagulation education - *Follow up date to check INR post discharge At least 5 days overlap therapy as Inpatient No Meds if any: Prescribed or Continued at Discharge Note: Overlap Therapy is Warfarin and Anticoagulant Meds if any: NOT Prescribed or Continued at Discharge
--- NOTE | 2017-11-13 08:15 | PN- Student ---
Subjective Subjective: Pt seen and examined at bedside this morning. He had no acute overnight events and says that current pain level is 0/10 with the lidocaine patch and increased doses of toradol. He denies GARZA, chest pain, SOB, abd pain, leg pain, or pain around his Lizarraga. He reports some episodes of fecal incontinence which he calls "diarrhea" and he cannot predict them. He can feel the sensation of the stool once he defecates though. Objective Objective: Vital Signs Date Time Temp Pulse Resp B/P B/P Pulse O2 O2 Flow FiO2 Mean Ox Delivery Rate 11/13 0918 96 120/66 11/13 0917 96 120/66 11/13 0628 97.4 68 20 118/64 94 Room Air 11/12 2217 97.6 87 18 110/60 94 Room Air 11/12 1433 99.3 76 18 110/58 97 06 1218 Room Air Intake & Output 11/13 1600 11/13 0800 11/13 0000 Intake Total 0 Output Total 700 700 Balance -700 -700 Intake, Oral 0 Number 0 0 Bowel Movements Output, Urine 700 700 PE: Gen - NAD, comfortable laying down Psych - appropriate affect Neuro - AOx4 CV - RRR no MRG Pulm - CTA BL Abd - soft, nontender, nondistended, +BS Ext - no edema, warm and well perfused Results Results: Laboratory Tests 11/13/17 0740: Anion Gap 7, Estimated GFR 58 L, BUN/Creatinine Ratio 25.0, Total Bilirubin 1.0 , Direct Bilirubin 0.2, AST 100 H, ALT 281 H, Alkaline Phosphatase 165 H, Total Protein 6.4, Albumin 3.5, CBC w Diff NO MAN DIFF REQ, RBC 4.72, MCV 90.9, MCH 30.7, MCHC 33.8, RDW 13.7, MPV 9.1, Gran % 57.7, Lymphocytes % 32.3, Monocytes % 6.3, Eosinophils % 3.1, Basophils % 0.6, Absolute Granulocytes 2.4, Absolute Lymphocytes 1.4, Absolute Monocytes 0.3, Absolute Eosinophils 0.1, Absolute Basophils 0 11/12/17 0725: Anion Gap 6, Estimated GFR 45 L, BUN/Creatinine Ratio 28.0 H, Total Bilirubin 1.0, Direct Bilirubin 0.3, AST 94 H, ALT 297 H, Alkaline Phosphatase 175 H, Total Protein 6.1 L, Albumin 3.3 L, CBC w Diff NO MAN DIFF REQ, RBC 4.21 L, MCV 92.3, MCH 31.7 H, MCHC 34.4, RDW 13.8, MPV 9.1, Gran % 58.6, Lymphocytes % 30.9, Monocytes % 7.3, Eosinophils % 2.7, Basophils % 0.5, Absolute Granulocytes 2.6, Absolute Lymphocytes 1.4, Absolute Monocytes 0.3, Absolute Eosinophils 0.1, Absolute Basophils 0, Hepatitis A IgM Ab NONREACTIVE, Hep Bs Antigen NONREACTIVE , Hep B Core IgM Ab Conf NONREACTIVE, Hepatitis C Antibody NONREACTIVE 11/11/17 0630: Anion Gap 9, Estimated GFR 53 L, BUN/Creatinine Ratio 30.8 H, Total Bilirubin 1.8 H, Direct Bilirubin 0.4, AST 119 H, ALT 370 H, Alkaline Phosphatase 200 H, Total Protein 6.1 L, Albumin 3.4 L, PT 13.3 H, INR 1.22 H, CBC w Diff NO MAN DIFF REQ, RBC 4.22 L, MCV 92.5, MCH 31.8 H, MCHC 34.3, RDW 13.9, MPV 9.0, Gran % 56.3, Lymphocytes % 33.5, Monocytes % 7.1, Eosinophils % 2.6, Basophils % 0.5, Absolute Granulocytes 2.3, Absolute Lymphocytes 1.4, Absolute Monocytes 0.3 , Absolute Eosinophils 0.1, Absolute Basophils 0 11/10/17 1158: Anion Gap 7, Estimated GFR 39 L, BUN/Creatinine Ratio 35.9 H, Glucose 101 H, Calcium 9.3, Total Bilirubin 2.3 H, AST 162 H, ALT 444 H, Alkaline Phosphatase 192 H, Total Protein 6.3, Albumin 3.5, Globulin 2.8, Albumin/ Globulin Ratio 1.3, CBC w Diff NO MAN DIFF REQ, RBC 4.05 L, MCV 92.3, MCH 31.1 H, MCHC 33.7, RDW 13.6, MPV 8.7, Gran % 63.3, Lymphocytes % 24.2, Monocytes % 9.5 H, Eosinophils % 2.5, Basophils % 0.5, Absolute Granulocytes 2.8, Absolute Lymphocytes 1.1 L, Absolute Monocytes 0.4, Absolute Eosinophils 0.1, Absolute Basophils 0 11/10/17 1145: Urinalysis LIGHT H, Urine Color YEL, Urine Clarity HAZY H, Urine pH 6.0, Ur Specific [place] 1.020, Urine Protein NEG, Urine Ketones NEG, Urine Nitrite NEG, Urine Bilirubin NEG, Urine Urobilinogen 0.2, Ur Leukocyte Esterase NEG, Ur Microscopic SEDIMENT EXAMINED, Urine RBC RARE, Urine Mucus FEW, Urine Hemoglobin NEG, Urine Glucose NEG Microbiology 11/10 1145 URINE ROUT: Urine Culture - COMP Assessment/Plan Assessment: Assessment: Pt is a 77YOM with PMH of spinal stenosis and peripheral neruopathy who presented to the ED 3 days ago with 1 day of abdominal distension and a mass preceded by 2 wks of urinary leakage and abdominal discomfort. He was found to have a distended bladder and Lizarraga catheter drained ~1700cc clear yellow urine. At that time, pt was found to have elevated BUN/Cr, elevated LFTs, and longstanding neuropathy. Urine Cx is negative thus far and renal US shows no acute pathologies. BUN/Cr and LFTs are overall downtrending and RUQ US and CT A/ P show no abnormalities. Ortho consult indicated no acute surgical intervention is required at this time. Pt continues to have uncontrolled back and leg pains d /t spinal stenosis. Hepatitis serology is nonreactive for Hep A IgM Ab, Hep Bs Ag, Hep B core IgM Ab, Hep C Ab. Problems/Plan 1. Spinal stenosis Pt has lumbar stenosis in L3 and L4. Recent MRI has shown "bone marrow heterogeneity" and this is concerning for potential osteoblastic lesions consistent with prostate cancer in this clinical setting where pt's pain is poorly controlled. - Bone scan today for possible osteoblastic lesions in the spine - Pt reports doing well today on lidocaine patch and toradol. We can hold piriformis injection at this time. - continue pain control - PT to work with pt in preparation for d/c to STR - Pt to sit in chair and be out of bed as much as possible. 2. Urinary leakage and retention Leakage likely d/t overflow incontinence and retention likely d/t prostatic hypertrophy. - continue tamsulosin - D/c lizarraga for void trial today 1. ELAINE ELAINE was likely d/t patient's urinary retention. Retention was likely multifactorial probably secondary to BPH and neuropathy d/t spinal stenosis. - Cr resolved to 1.2. - Void trial today 3. Transaminitis Etiology of pt's transaminitis is unclear but does not seem to be of any acute infections or structural abnormalities. Pt is also not displaying any encephalopathy, INR and PT are therapeutic on heparin, Cr 1.2 shows resolved ELAINE. Chronic hep B and C have been r/o with hepatitis serology. As pt's MELD Score is 14 points based on today's labs, we will continue investigating possible etiologies. - Hepatitis serology is nonreactive for Hep A IgM Ab, Hep Bs Ag, Hep B core IgM Ab, Hep C Ab - Continue trending LFTs. They are stable around AST 100, ALT 281, and Alk Phos of 165 - monitor for signs of encephalopathy Diet: Regular DVT: Heparin Code: Full
[2017-11-13 08:37] LABS: ABSOLUTE BASOPHIL COUNT 0 /CUMM (0.0-0.2); ABSOLUTE EOSINOPHIL COUNT 0.1 /CUMM (0.0-0.7); ABSOLUTE GRANULOCYTE CT 2.4 /CUMM (1.4-6.5); ABSOLUTE LYMPH COUNT 1.4 /CUMM (1.2-3.4); ABSOLUTE MONOCYTE COUNT 0.3 /CUMM (0.10-0.60); BASOPHIL % 0.6 % (0.0-2.0); EOSINOPHIL % 3.1 % (0-5); GRANULOCYTE % 57.7 % (42.2-75.2); HEMATOCRIT 42.9 % (42-52); MEAN CORPUSCULAR HGB 30.7 PG (27.0-31.0); MEAN CORPUSCULAR HGB CONC 33.8 G/DL (33.0-37.0); MEAN CORPUSCULAR VOLUME 90.9 FL (80.0-94.0); MEAN PLATELET VOLUME 9.1 FL (7.4-10.4); PLATELET COUNT 230 /CUMM (130-400); RBC DISTRIBUTION WIDTH 13.7 % (11.5-14.5); RED BLOOD CELL CT 4.72 /CUMM (4.70-6.10); WHITE BLOOD CELL COUNT 4.2 /CUMM (4.8-10.8)
[2017-11-13 14:08] VITALS: BP 110/65
[2017-11-13 14:22] VITALS: BP 109/63
[2017-11-14 06:53] VITALS: BP 122/58
[2017-11-14 06:55] VITALS: BP 122/80
--- NOTE | 2017-11-14 07:46 | PN- Urology ---
Subjective Subjective: Patient sleeping Objective Vital Signs and I&Os Vital Signs Date Time Temp Pulse Resp B/P B/P Pulse O2 O2 Flow FiO2 Mean Ox Delivery Rate 11/14 0655 97.8 89 20 122/80 94 11/13 1422 97.9 83 18 109/63 95 Room Air 11/13 1408 98.0 80 20 110/65 95 Room Air 11/13 0918 96 120/66 11/13 0917 96 120/66 11/13 0800 94 Room Air Intake & Output 11/14 0000 11/13 1600 11/13 0000 11/12 1600 Intake Total 0 110 360 0 1300 Output Total 800 400 942 115 7510 Balance -800 110 -40 -700 -700 200 Intake, IV 0 10 Intake, Oral 0 100 360 0 1300 Number 0 0 0 4 Bowel Movements Output, Urine 800 [phone] 1914 Cameron removed yesterday. Pt required str cath Assessment/Plan Assessment/Plan Imp: 1. Urinary retention. Likely a neuroenic component Plan: 1. Would increase tamsulosin to 0.4 mg bid 2. Check pvr by bladder scan str cath if more than 400 cc 3. Would probably be best for nurses to teach patient to cath himself as he will likely need this at time of discharge
--- NOTE | 2017-11-14 07:47 | PN- Housestaff ---
Derick Abdi 11/14/17 0745: Subjective Follow-up For: Post-renal ELAINE Urinary Retention Subjective: Afebrile overnight. No acute events overnight. Patient denies any pain this morning in his buttocks or lower legs. Patient states he is tired this morning but otherwise has no concerns this morning. Patient will be going for a Bone Scan this morning. Patient has been getting straight cath for bladder retention. Patient states he has still been having loose stools and can not control the bowel movements and does not know when he has been going. Patient otherwise denies any fevers, chills, dysuria, shortness of breath, and chest pain. Review of Systems Constitutional: Reports: see HPI. Objective Last 24 Hrs of Vital Signs/I&O Vital Signs Date Time Temp Pulse Resp B/P B/P Pulse O2 O2 Flow FiO2 Mean Ox Delivery Rate 11/14 0655 97.8 89 20 122/80 94 11/13 1422 97.9 83 18 109/63 95 Room Air 11/13 1408 98.0 80 20 110/65 95 Room Air 11/13 0918 96 120/66 11/13 0917 96 120/66 Intake & Output 11/14 1600 11/14 0800 11/14 0000 Intake Total 0 110 Output Total 800 Balance -800 110 Intake, IV 0 10 Intake, Oral 0 100 Number 0 Bowel Movements Output, Urine 800 Physical Exam General Appearance: Alert, Oriented X3, Cooperative, No Acute Distress HEENT: Atraumatic Cardiovascular: Regular Rate, Normal S1, Normal S2 Lungs: Clear to Auscultation, Normal Air Movement Abdomen: Soft, No Tenderness Neurological: Normal Speech Extremities: No Edema Assessment/Plan Assessment: Nuclear Medicine - Bone Scan IMPRESSION: 1. There is abnormal activity in the medial left frontal bone, which may be related to paranasal sinus disease. This could be further evaluated with CT scan. 2. There is intense multifocal activity in the lumbar spine as described above, most consistent with severe degenerative changes and corresponding to findings on prior imaging. 3. There are milder foci of increased uptake in the other regions are most consistent with degenerative or posttraumatic changes. CT ABD/PELVIS W/O CONTRAST - IMPRESSION: Diffuse sigmoid and scattered descending colon diverticulosis without diverticulitis. No bowel obstruction seen. The bladder is empty with a Cameron's catheter within. Abdominal US IMPRESSION: 1. The liver is incompletely evaluated due to its subcostal position and overlying bowel gas from the colon. The visualized portions of the liver are normal. 2. Common bile duct is 0.4 cm diameter. 3. No acute sonographic findings in the visualized portion of the abdomen. AST 100, ALT 281, Alk Phos 165 #Acute kidney injury, secondary to obstructive uropathy - Admit to general medicine for monitoring and assessment of vitals - Follow up with BUN/Cr, recent Cr 1.2 - Cameron catheter discontinued, voiding trial unsuccessful; post void residual has been greater than 800 cc on two bladder scans since yesterday, therefore pt. has been receiving intermittent caths - Continue Tamsulosin per Urology - Urology consultation #Spinal Canal stenosis - MRI 11/08/17 indicates multi-level spinal stenosis involvement - Pain management; neuropathy pain control via gabapentin - PT evaluation, re-ordered 11/12 and activity changed to Out of Bed; patient was unable to work with PT and stated continued pain/weakness of b/l lower extremities - Ortho consult (Dr. Hitchcock) rec. no other imaging at this time and thus medically stablize until can be seen as an outpatient - performed Epidural (Intralaminar) and Piriformis injections, June and July, on the patient prior. Dr. Hitchcock confirms he wants to do an expediated decompressive surgery as an outpatient and that, if needed, patient can receive an epidural injection as in inpatient; patient prefers a Piriformis injection at this point to relieve his pain in the buttocks and b/l legs (calves ) -Bone scan completed today 11/14 in the AM, assess for any osteoblastic lesions (MRI 11.08.17 showed extensive marrow heterogeneity, differnential included heterogenous red marrow replacement and malignant marrow replacement; rec. correlation with bone scan). Bone scan shows no evidence of metastatic bone lesions and findings consistent with severe degenerative changes and corresponding to on prior imaging. #Elevated LFTS - Right upper quadrant U/S non-specific with no acute findings; LFTs are trending down - Hepatitis Panel, nonreactive - Follow PT/INR - Avoid hepatotoxic agents including Acetaminophen DVT PPx. FC Problem List: 1. ELAINE (acute kidney injury) 2. Urinary retention 3. Spinal stenosis Pain Ratin Pain Location: NA Pain Goal: Remain pain free Pain Plan: NA Tomorrow's Labs & Rationales: Routine as indicated D'Shama MD,Laura 11/14/17 0953: Attending MD Review Statement Attending Statement Attending MD Statement: examined this patient, discuss w/resident/PA/SENIOR LINUX ENGINEER, agreed w/resident/PA/SENIOR LINUX ENGINEER, reviewed EMR data (avail), discussed with nursing, discussed with case mgmt, reviewed images Attending Assessment/Plan: Patient continues to have a very high residual of 800 mL and is on the straight cath protocol. Appreciate urology follow-up and Dr. Quintanilla recommended increasing the tamsulosin to twice daily. We are getting a bone scan today to make sure that what was seen on the MRI is not metastatic prostate CA. If the bone scan is negative and the plan will be discharged to [facility]. He needs close outpatient urology and neurosurgical follow-up.
--- NOTE | 2017-11-14 08:28 | PN- Student ---
Subjective Subjective: Pt seen and examined this morning. He had no acute events overnight but failed void trial yesterday and has had to be straight cathed x2 with 800cc both times. He denies pain this morning in chest, back, or legs but does report suprapubic tenderness. He denies headache and SOB. Pt is not aware if he has had any diarrhea overnight as he says he does not realize when he is incontinent. Objective Objective: Vital Signs Date Time Temp Pulse Resp B/P B/P Pulse O2 O2 Flow FiO2 Mean Ox Delivery Rate 11/14 0655 97.8 89 20 122/80 94 11/13 1422 97.9 83 18 109/63 95 Room Air 11/13 1408 98.0 80 20 110/65 95 Room Air 11/13 0918 96 120/66 11/13 0917 96 120/66 Intake & Output 11/14 1600 11/14 0800 11/14 0000 Intake Total 0 110 Output Total 800 Balance -800 110 Intake, IV 0 10 Intake, Oral 0 100 Number 0 Bowel Movements Output, Urine 800 PE Gen - NAD, comfortable Psych - good affect Neuro - AOx4 CV - RRR no MRG Pulm - CTA BL Abd - soft, nondistended, tender to deep palpation in suprapubic region, no masses appreciated Ext - no edema, warm and well perfused, PT/DP pulses 2+ BL Results Results: Laboratory Tests 11/13/17 0740: Anion Gap 7, Estimated GFR 58 L, BUN/Creatinine Ratio 25.0, Total Bilirubin 1.0 , Direct Bilirubin 0.2, AST 100 H, ALT 281 H, Alkaline Phosphatase 165 H, Total Protein 6.4, Albumin 3.5, CBC w Diff NO MAN DIFF REQ, RBC 4.72, MCV 90.9, MCH 30.7, MCHC 33.8, RDW 13.7, MPV 9.1, Gran % 57.7, Lymphocytes % 32.3, Monocytes % 6.3, Eosinophils % 3.1, Basophils % 0.6, Absolute Granulocytes 2.4, Absolute Lymphocytes 1.4, Absolute Monocytes 0.3, Absolute Eosinophils 0.1, Absolute Basophils 0 11/12/17 0725: Anion Gap 6, Estimated GFR 45 L, BUN/Creatinine Ratio 28.0 H, Total Bilirubin 1.0, Direct Bilirubin 0.3, AST 94 H, ALT 297 H, Alkaline Phosphatase 175 H, Total Protein 6.1 L, Albumin 3.3 L, CBC w Diff NO MAN DIFF REQ, RBC 4.21 L, MCV 92.3, MCH 31.7 H, MCHC 34.4, RDW 13.8, MPV 9.1, Gran % 58.6, Lymphocytes % 30.9, Monocytes % 7.3, Eosinophils % 2.7, Basophils % 0.5, Absolute Granulocytes 2.6, Absolute Lymphocytes 1.4, Absolute Monocytes 0.3, Absolute Eosinophils 0.1, Absolute Basophils 0, Hepatitis A IgM Ab NONREACTIVE, Hep Bs Antigen NONREACTIVE , Hep B Core IgM Ab Conf NONREACTIVE, Hepatitis C Antibody NONREACTIVE Assessment/Plan Assessment: Assessment: Pt is a 77YOM with PMH of spinal stenosis and peripheral neruopathy who presented to the ED 4 days ago with 1 day of abdominal distension and a mass preceded by 2 wks of urinary leakage and abdominal discomfort. He was found to have a distended bladder and Cameron catheter drained ~1700cc clear yellow urine. At that time, pt was found to have elevated BUN/Cr, elevated LFTs, and longstanding neuropathy. Urine Cx is negative thus far and renal US shows no acute pathologies. BUN/Cr and LFTs are overall downtrending and RUQ US and CT A/ P show no abnormalities. Ortho consult indicated no acute surgical intervention is required at this time. Pt continues to have back and leg pains d/t spinal stenosis but they are much better controlled with current pain regimen. Hepatitis serology is nonreactive for Hep A IgM Ab, Hep Bs Ag, Hep B core IgM Ab , Hep C Ab. Problems/Plan 1. Spinal stenosis Pt has lumbar stenosis in L3 and L4. Recent MRI has shown "bone marrow heterogeneity" and this is concerning for potential osteoblastic lesions consistent with prostate cancer in this clinical setting where pt's pain is poorly controlled. - Bone scan today for possible osteoblastic lesions in the spine - Pt reports doing well today on lidocaine patch and toradol. We can hold piriformis injection at this time. - continue pain control - PT to work with pt in preparation for d/c to STR - Pt to sit in chair and be out of bed as much as possible. - If bone scan is clear, pt can be discharged to STR 2. Urinary leakage and retention Leakage likely d/t overflow incontinence and retention likely d/t prostatic hypertrophy. - increase tamsulosin as per urology - Pt failed void trial so nursing staff to teach pt how to self cath 1. ELAINE ELAINE was likely d/t patient's urinary retention. Retention was likely multifactorial probably secondary to BPH and neuropathy d/t spinal stenosis. - Cr resolved to 1.2. 3. Transaminitis Etiology of pt's transaminitis is unclear but does not seem to be of any acute infections or structural abnormalities. Pt is also not displaying any encephalopathy, INR and PT are therapeutic on heparin, Cr 1.2 shows resolved ELAINE. Chronic hep B and C have been r/o with hepatitis serology. Diet: Regular DVT: Heparin Code: Full of 165 - monitor for signs of encephalopathy Diet: Regular DVT: Heparin Code: Full
--- NOTE | 2017-11-14 11:36 | NUCLEAR MEDICINE REPORT ---
EXAMINATION: NM BONE SCAN WHOLE BODY CLINICAL INFORMATION: MRI scan showing extensive marrow heterogeneity. Assess for bone metastases. COMPARISON: MRI scan of the lumbar spine 11/08/2017. CT scan of the abdomen and pelvis 11/10/2017. TECHNIQUE: Multiple gamma scintillation camera images of the whole body were performed 2.5 hours following the intravenous administration of 28.6 mCi Tc-99m HDP. FINDINGS: In the head, there is moderate increased activity in the left frontal bone medially. In the thoracic cage and upper extremities, there is uptake in the left greater than right acromioclavicular joints. Mild diffuse increased activity is seen in the left shoulder joint. There is uptake in the bilateral sternoclavicular joints, more intense on the right. Uptake in the ribs appears normal. There is mild activity in the first carpometacarpal joints of the hands bilaterally. In the spine, there is normal activity in the cervical and thoracic regions. There is intense multifocal activity predominantly in the posterior elements of the lumbar vertebrae from L2 through L5. This is most intense on the left at L1 and L2 and on the right at L3, L4 and L5. There is a focus of moderate uptake noted in the region of the spinous process of L5 in the midline. In the pelvis, there is minimal increased activity in the superior acetabular margins bilaterally. In the lower extremities, there is mild activity in the patellae bilaterally. There is mild activity along the lateral aspect of the right ankle and in the right mid foot and right first MP joint. The urinary bladder and faint visualization of both kidneys are noted. IMPRESSION: 1. There is abnormal activity in the medial left frontal bone, which may be related to paranasal sinus disease. This could be further evaluated with CT scan. 2. There is intense multifocal activity in the lumbar spine as described above, most consistent with severe degenerative changes and corresponding to findings on prior imaging. 3. There are milder foci of increased uptake in the other regions are most consistent with degenerative or posttraumatic changes.
[2017-11-14] MEDS ORDERED: LIDODERM1 EACH TOP (12:53)
[2017-11-14] MEDS ORDERED: TRAMADOL HCL50 M1 PO (12:53)
[2017-11-14] MEDS ORDERED: GABAPENTIN600 M1 PO (13:21)
[2017-11-14] MEDS ORDERED: FLOMAX0.4 M1 PO (13:35)
[2017-11-14 13:52] VITALS: BP 122/80
[2017-11-14 14:21] VITALS: BP 100/60
== END 2017-11-14 15:08 | DRG 683 ==
LOC: ERH 10:58 → ERHI 16:23 → 2NA 16:23 → ENRESERV 17:23 → ENTRNSPT 19:21 → 2NA 19:42 → EDTRNSPT 19:45 → EDTRNSPTSTS 19:45 → 2NA 19:48 → CMPTRNSPT 20:04 → 2NA 11-12 08:03 → ENPENDDIS 11-14 13:50 → 2NA 11-14 15:08
PROVIDERS: Internal Medicine; Student in an Organized Health Care Education/Training Program
DX: N17.9 Acute kidney failure, unspecified (principal); N13.8 Other obstructive and reflux uropathy; G62.9 Polyneuropathy, unspecified; G89.29 Other chronic pain; N31.9 Neuromuscular dysfunction of bladder, unspecified; N39.498 Other specified urinary incontinence; M51.16 Intervertebral disc disorders with radiculopathy, lumbar region; N40.1 Benign prostatic hyperplasia with lower urinary tract symptoms; R33.8 Other retention of urine; R74.0 Nonspecific elevation of levels of transaminase and lactic acid dehydrogenase [LDH]; M48.062 Spinal stenosis, lumbar region with neurogenic claudication; Z91.81 History of falling; Z98.1 Arthrodesis status; Z87.891 Personal history of nicotine dependence
CPT/HCPCS: 2NAP; 72149; 36415; 36592; 72158; 74176; 81001; 82436; 87086; 97116-GO; 97162-GP; A9561; A9579; J0131; J1644; J3490

== ENCOUNTER 2017-11-16 17:26 | Inpatient (IN) | payer OTHER, MEDICARE ==
[~2017-11-16] VITALS: Ht 170.2 cm; Wt 69.1 kg
[~2017-11-16 17:26] MED LIST changes: +GABAPENTIN600 M1 PO; +LIDODERM1 EACH TOP; +MELOXICAM7.5 M1 PO; +TRAMADOL HCL50 M1 PO
[2017-11-16 17:46] LABS: ABSOLUTE BASOPHIL COUNT 0 /CUMM (0.0-0.2); ABSOLUTE EOSINOPHIL COUNT 0.1 /CUMM (0.0-0.7); ABSOLUTE GRANULOCYTE CT 11.5 /CUMM (1.4-6.5); ABSOLUTE LYMPH COUNT 1.2 /CUMM (1.2-3.4); ABSOLUTE MONOCYTE COUNT 0.8 /CUMM (0.10-0.60); BASOPHIL % 0.3 % (0.0-2.0); EOSINOPHIL % 0.4 % (0-5); GRANULOCYTE % 84.6 % (42.2-75.2); HEMATOCRIT 41.9 % (42-52); MEAN CORPUSCULAR HGB 31.1 PG (27.0-31.0); MEAN CORPUSCULAR HGB CONC 33.9 G/DL (33.0-37.0); MEAN CORPUSCULAR VOLUME 91.7 FL (80.0-94.0); MEAN PLATELET VOLUME 8.6 FL (7.4-10.4); PLATELET COUNT 308 /CUMM (130-400); RBC DISTRIBUTION WIDTH 13.5 % (11.5-14.5); RED BLOOD CELL CT 4.57 /CUMM (4.70-6.10)
--- NOTE | 2017-11-16 17:46 | ED SYNCOPE COMPLAINT ---
History of Present Illness General Chief Complaint: Syncope and Near-Syncope Stated Complaint: BIBA SYNCOPE Source: patient, old records, EMS Exam Limitations: no limitations Vital Signs & Intake/Output Vital Signs & Intake/Output Vital Signs Date Time Temp Pulse Resp B/P B/P Pulse O2 O2 Flow FiO2 Mean Ox Delivery Rate 11/16 1817 86 16 90/68 99 Room Air 11/16 1736 98.1 92 18 64/48 97 Allergies Coded Allergies: No Known Allergies (10/22/17) Reconcile Medications Benazepril HCl 5 MG TABLET 0.5 TAB PO DAILY BP (Reported) Celecoxib (Celebrex) 200 MG CAPSULE 1 CAP PO DAILY PRN PAIN (Reported) Cholecalciferol (Vitamin D3) (Vitamin D) 2,000 UNIT TABLET 1 TAB PO DAILY VITAMIN SUPPORT (Reported) Cyanocobalamin (Vitamin B-12) 1,000 MCG TABLET 1 TAB PO DAILY VITAMIN SUPPORT (Reported) Cyclobenzaprine HCl 10 MG TABLET 1 TAB PO Q8P spasms Folic Acid 0.8 MG TABLET 1 TAB PO DAILY VITAMIN SUPPORT (Reported) Gabapentin 600 MG TABLET 1 TAB PO TID NEUROPATHIC PAIN Hydrochlorothiazide 25 MG TABLET 0.5 TAB PO DAILY WATER RETENTION (Reported) Lidocaine (Lidoderm) 5 % ADH..PATCH 1 PAT TOP Q24H PRN back pain KEEP ON FOR 12 HOURS AND OFF FOR 12 HOURS Magnesium Oxide (Magnesium) 500 MG CAPSULE 1 CAP PO DAILY SUPPLEMENT ( Reported) Denair-3 Fatty Acids/Fish Oil (Fish Oil 1,000 MG Capsule) 340 MG-1,000 MG CAPSULE 1 CAP PO DAILY SUPPLEMENT (Reported) Tamsulosin HCl (Flomax) 0.4 MG CAP.ER.24H 0.4 MG PO BID BPH Tramadol HCl 50 MG TABLET 50 MG PO Q6-PRN PRN PAIN SCALE 7-10 (SEVERE) Turmeric Root Extract (Turmeric) 500 MG CAPSULE 1 CAP PO DAILY SUPPLEMENT ( Reported) Triage Note: PT BIBA FOR PERIOD OF UNRESPONSIVNESS. PT IS AT REHAB AND WAS NOTED TO HAVE +LOC WHILE SITTING IN HIS CHAIR. PT WAS RESPONSIVE UPON EMS ARRIVAL. PT OFFERS NO COMPLAIMTS UPON ARRIVAL BS 114 FOR EMS. Triage Nurses Notes Reviewed? yes Timing: single episode today Precipitating Factors: none Loss of Consciousness: brief (seconds) HPI: 77-year-old male comes into the emergency room for further evaluation of syncopal episode that occurred at rehabilitation facility. Patient was reportedly sitting in his chair when he was found to be unresponsive. He cannot recall the event. Denies any current dizziness chest pain shortness of breath palpitations. Denied any preceding symptoms. He was found to be hypotensive. Denies any symptoms currently. (Bennett Farrell) Past History Travel History Traveled to [place] past 21 day No Medical History Any Pertinent Medical History? see below for history Neurological: peripheral neuropathy, spinal stenosis EENT: NONE Cardiovascular: hypertension Respiratory: NONE Gastrointestinal: NONE Hepatic: NONE Renal: NONE Musculoskeletal: SPINAL STENOSIS Psychiatric: NONE Endocrine: NONE Blood Disorders: NONE Cancer(s): NONE [employer]/Reproductive: NONE History of MRSA: No History of VRE: No History of CDIFF: No Surgical History Surgical History: non-contributory Psychosocial History Who do you live with Spouse Services at Home Home Health Aide What is your primary language Syrian Tobacco Use: Quit >30 days ago ETOH Use: denies use Illicit Drug Use: denies illicit drug use Family History Hx Contributory? No (Bennett Farrell) Review of Systems Review of Systems Constitutional: Reports: no symptoms. EENTM: Reports: no symptoms. Respiratory: Reports: no symptoms. Cardiovascular: Reports: see HPI. GI: Reports: no symptoms. Genitourinary: Reports: no symptoms. Musculoskeletal: Reports: no symptoms. Skin: Reports: no symptoms. Neurological/Psychological: Reports: no symptoms. All Other Systems: Reviewed and Negative (Bennett Farrell) Physical Exam Physical Exam General Appearance: well developed/nourished, no apparent distress, alert, awake Head: atraumatic, normal appearance Eyes: Bilateral: normal appearance. Ears, Nose, Throat: normal ENT inspection, hearing grossly normal Neck: normal inspection Respiratory: normal breath sounds, no respiratory distress Cardiovascular: regular rate/rhythm Back: normal inspection Psychiatric: awake, alert, oriented x 3 Cranial Nerves: normal hearing, normal speech, PERRL Motor/Sensory: no motor/sensory deficits Skin: intact, normal color Core Measures ACS in differential dx? No CVA/TIA Diagnosis: No Sepsis Present: No Sepsis Focused Exam Completed? No (Bennett Farrell) Progress Differential Diagnosis: AMI, aortic dissection, aortic valve, drug induced syncope, hyperventilation, orthostatic syncope, other valvular disease, pacemaker malfunction, pericardial tamponade, pulmonary embolus, seizure, sick sinus syndrome, subarachnoid hem., TIA/CVA, vasodepressor syncope, ventricular tach/fib Plan of Care: Orders Procedure Date/time Status Heart Healthy Diet 11/17 B Active LACTIC ACID 11/17 2127 Active Patient Data 11/[address] in observation 11/16 183 Active ED Holding Orders 11/16 1831 Active Vital Signs 11/16 183 Active Code Status 11/16 1831 Active LACTIC ACID 11/16 1828 Active CULTURE,URINE 11/16 182 Active URINALYSIS 11/16 182 Complete Add-on Test (ER Only) 11/16 1800 Active TROPONIN LEVEL 11/16 172 Complete COMPREHENSIVE METABOLIC PANEL 11/16 172 Complete CBC WITHOUT DIFFERENTIAL 11/16 172 Complete EKG 11/16 1728 Active Laboratory Tests 11/16/17 1832: Lactic Acid Pending 11/16/171826: Urine Color YEL, Urine Clarity HAZY H, Urine pH 6.0, Ur Specific [place] 1.015, Urine Protein NEG, Urine Ketones NEG, Urine Nitrite POS H, Urine Bilirubin NEG, Urine Urobilinogen 0.2, Ur Leukocyte Esterase LARGE H, Ur Microscopic SEDIMENT EXAMINED, Urine RBC RARE, Urine WBC 10-15 H, Urine Bacteria MANY H, Hyaline Casts FEW H, Urine Mucus FEW, Urine Hemoglobin TRACE-INTACT H, Urine Glucose NEG 11/16/17 1741: Anion Gap 13, Estimated GFR 37 L, BUN/Creatinine Ratio 19.4, Glucose 150 H, Calcium 9.8, Total Bilirubin 2.0 H, AST 121 H, ALT 307 H, Alkaline Phosphatase 165 H, Troponin I < 0.01, Total Protein 7.6, Albumin 4.4, Globulin 3.2, Albumin/Globulin Ratio 1.4, CBC w Diff NO MAN DIFF REQ, RBC 4.57 L, MCV 91.7, MCH 31.1 H, MCHC 33.9, RDW 13.5, MPV 8.6, Gran % 84.6 H, Lymphocytes % 8.5 L, Monocytes % 6.2, Eosinophils % 0.4, Basophils % 0.3, Absolute Granulocytes 11.5 H, Absolute Lymphocytes 1.2, Absolute Monocytes 0.8 H, Absolute Eosinophils 0.1, Absolute Basophils 0 Microbiology 11/16 1826 URINE ROUT: Urine Culture - RECD Diagnostic Imaging: Viewed by Me: Radiology Read. Discussed w/RAD: Radiology Read. Radiology Impression: PATIENT: NILDA RAMEY PRESENT AGE: 77 PATIENT ACCOUNT NO: [id number] : 38 LOCATION: [facility] ORDERING PHYSICIAN: Bennett MENSAH SERVICE DATE: 11/16/17 EXAM TYPE: RAD - XRY-PORTABLE CHEST XRAY EXAMINATION: XR PORTABLE CHEST CLINICAL INFORMATION: Syncope COMPARISON: None TECHNIQUE: Portable frontal view of the chest was obtained. FINDINGS: There is [id number] elevation of the right hemidiaphragm. The lungs are hypoexpanded. No focal consolidation, changes of congestion or pleural effusions. No pneumothorax. Cardiomediastinal silhouette evaluation is somewhat limited by patient positioning however likely within normal limits. Lower cervical fusion hardware is incompletely seen. Degenerative changes are noted at the bilateral acromioclavicular joints. Multiple surgical clips in the right upper abdominal quadrant are seen. IMPRESSION: Low lung volumes. No acute pulmonary process. DICTATED BY: Shiva Duarte MD DATE/TIME DICTATED:11/16/171831 PLASTER WHITTLER:JENNIFER DATE/TIME TRANSCRIBED:1831 CONFIDENTIAL, DO NOT COPY WITHOUT APPROPRIATE AUTHORIZATION. < Electronically signed in Other Vendor System> SIGNED BY: Shiva Duarte MD 01/24 Initial ED EKG: normal sinus rhythm, rate (91), nonspecific ST T wave chg (Bennett Farrell) Departure Departure Disposition: STILL A PATIENT Condition: Stable Clinical Impression Primary Impression: Syncope Secondary Impressions: ELAINE (acute kidney injury), Dehydration Referrals: Mamta Dominguez MD Departure Forms: Customer Survey General Discharge Information (Bennett Farrell) Observation Note Spoke With: Gian Murry MD Physician Advisor Notified: CARLOS GARCIA,SHWETHA Duque Place Patient In: Non-ED OBS Care Area Rationale for Observation: My rational for observation is as follows [telemetry observation after a vasovagal syncopal episode resulting in hypotension patient will need serial enzymes and telemetry monitoring, IV fluids, cardiology consultation]. PA/COAT HANGER SHAPER MACHINE OPERATOR Co-Sign Statement Statement: ED Attending supervision documentation- [X] I saw and evaluated the patient. I have also reviewed all the pertinent lab results and diagnostic results. I agree with the findings and the plan of care as documented in the PA's/COAT HANGER SHAPER MACHINE OPERATOR's documentation. [X] I have reviewed the ED Record and agree with the PA's/COAT HANGER SHAPER MACHINE OPERATOR's documentation. [] Additions or exceptions (if any) to the PAs/COAT HANGER SHAPER MACHINE OPERATOR's note and plan are summarized below: [See above note] (Carlos GARCIA,Shwetha Duque) Critical Care Note Critical Care Note Critical Care Time: 30-74 min (45) (Cruzito MENSAH,Bennett)
[2017-11-16 17:55] LABS: WHITE BLOOD CELL COUNT 13.5 /CUMM (4.8-10.8)
--- NOTE | 2017-11-16 18:38 | RADIOLOGY REPORT ---
EXAMINATION: XR PORTABLE CHEST CLINICAL INFORMATION: Syncope COMPARISON: None TECHNIQUE: Portable frontal view of the chest was obtained. FINDINGS: There is [id number] elevation of the right hemidiaphragm. The lungs are hypoexpanded. No focal consolidation, changes of congestion or pleural effusions. No pneumothorax. Cardiomediastinal silhouette evaluation is somewhat limited by patient positioning however likely within normal limits. Lower cervical fusion hardware is incompletely seen. Degenerative changes are noted at the bilateral acromioclavicular joints. Multiple surgical clips in the right upper abdominal quadrant are seen. IMPRESSION: Low lung volumes. No acute pulmonary process.
--- NOTE | 2017-11-16 18:46 | History & Physical ---
Tony GARCIA,[facility] 11/16/17 3256: General Information and HPI MD Statement: I have seen and personally examined NILDA RAMEY and documented this H&P. The patient is a 77 year old M who presented with a patient stated chief complaint of [confusion and hypotension]. Source of Information: patient, old records, W10 Exam Limitations: no limitations History of Present Illness: 77-year-old gentleman with past medical history lumbar spinal stenosis, hypertension, peripheral neuropathy, BPH, alcohol dependence came to [facility] with complaints of hypotension and confusion from [facility]. History obtained from the notes from [facility] and from the patient. According to the patient he was in usual state of health and had a physical therapy today morning. After the physical therapy at around 11:30 AM he said he passed out. He did not remember what happened then. He said he was brought to [facility] because of his low blood pressure. I spoke to the nurse in [facility] who said that patient was found to be confused at around 11 and when blood pressure was checked it was found to be systolic 40s which came up to 80s after a reverse Trendelenburg position. Patient was very lethargic and given his low blood pressure this sent him to [facility]. There was no history of any fall, loss of consciousness, dizziness, chest pain, palpitations, abdominal pain, dysuria, fever, chills, nausea, vomiting, headache, ringing of ears, vertigo, constipation, diarrhea, diaphoresis during the same time. Patient though gives a remote history of fall several weeks ago. At baseline he uses walker occasionally. Patient was recently admitted in [facility] last week for obstructive uropathy, elevated transaminase. Patient was initially Cameron catheterized and then sent to [facility] for rehab. Patient was straight catheterized in [facility]. Patient was seen by urologist Dr. Charles during the hospital admission last time who suggested Cameron insertion and voiding trail and follow- up. Patient also had an MRI done last admission which showed severe lumbar spinal stenosis and was seen by Alexander Hitchcock MD who suggested to continue with the pain medications and follow-up as outpatient. Patient has no history of any incontinence to bowel/bladder or saddle anesthesia. Patient gives history of cough for the past 1 month with no sputum production. Patient had elevated transaminases last admission and had an right upper quadrant ultrasound she was found to be normal. Past surgical history Cholecystectomy, back surgery twice, neck surgery with screws placed, appendectomy Social history-patient has smoked 1 pack a day until 10 years ago. Patient takes red wine 2-3 glasses every day until 2 months ago. His last drink was 2 months ago. Family history-noncontributory Allergies/Medications Allergies: Coded Allergies: No Known Allergies (10/22/17) Compliance With Home Meds: GOOD Observation Initial Note - I have personally examined NILDA RAMEY on 11/16/17 at 2328. 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 Longterm Facility Who Do You Live With? self Services at Home: Home Health Aide Primary Language: Nigerian Smoking Status: Former Smoker ETOH Use: denies use Illicit Drug Use: denies illicit drug use Functional Ability ADLs Independent: dressing, eating. Needs Assist: toileting, bathing. Ambulation: walker IADLs Needs Assist: shopping, housework, finances, food prep, telephone, transportation, medication admin. Review of Systems Review of Systems Constitutional: Reports: weakness. Cardiovascular: Reports: no symptoms. Respiratory: Reports: no symptoms. GI: Reports: no symptoms. Genitourinary: Reports: no symptoms. Musculoskeletal: Reports: no symptoms. Exam & Diagnostic Data Last 24 Hrs of Vital Signs/I&O Vital Signs Date Time Temp Pulse Resp B/P B/P Pulse O2 O2 Flow FiO2 Mean Ox Delivery Rate 11/16 2250 87 11/16 2125 97.6 89 18 128/78 98 11/16 2124 Room Air 11/16 1915 96/56 11/16 1817 86 16 90/68 99 Room Air 11/16 1736 98.1 92 18 64/48 97 Physical Exam General Appearance Alert, Oriented X3 Skin No Rashes, No Breakdown Cardiovascular Regular Rate, Normal S1, Normal S2, No Murmurs Lungs Clear to Auscultation Abdomen Soft Neurological Normal Speech, Strength at 5/5 X4 Ext, Sensation Intact Extremities No Edema, Normal Pulses Last 24 Hrs of Labs/Michael: Laboratory Tests 11/16/17 2240: Sodium Pending, Potassium Pending, Chloride Pending, Carbon Dioxide Pending, Anion Gap Pending, BUN Pending, Creatinine Pending, BUN/Creatinine Ratio Pending 11/16/17 2128: Lactic Acid Cancelled 11/16/17 183: Lactic Acid 1.3 11/16/171826: Urine Color YEL, Urine Clarity HAZY H, Urine pH 6.0, Ur Specific [place] 1.015, Urine Protein NEG, Urine Ketones NEG, Urine Nitrite POS H, Urine Bilirubin NEG, Urine Urobilinogen 0.2, Ur Leukocyte Esterase LARGE H, Ur Microscopic SEDIMENT EXAMINED, Urine RBC RARE, Urine WBC 10-15 H, Urine Bacteria MANY H, Hyaline Casts FEW H, Urine Mucus FEW, Urine Hemoglobin TRACE-INTACT H, Urine Glucose NEG 11/16/17 1741: Anion Gap 13, Estimated GFR 37 L, BUN/Creatinine Ratio 19.4, Glucose 150 H, Calcium 9.8, Total Bilirubin 2.0 H, AST 121 H, ALT 307 H, Alkaline Phosphatase 165 H, Troponin I < 0.01, Total Protein 7.6, Albumin 4.4, Globulin 3.2, Albumin/Globulin Ratio 1.4, CBC w Diff NO MAN DIFF REQ, RBC 4.57 L, MCV 91.7, MCH 31.1 H, MCHC 33.9, RDW 13.5, MPV 8.6, Gran % 84.6 H, Lymphocytes % 8.5 L, Monocytes % 6.2, Eosinophils % 0.4, Basophils % 0.3, Absolute Granulocytes 11.5 H, Absolute Lymphocytes 1.2, Absolute Monocytes 0.8 H, Absolute Eosinophils 0.1, Absolute Basophils 0 Microbiology 11/16 1912 URINE ROUT: Urine Culture - ORD 11/16 1826 URINE ROUT: Urine Culture - RECD Diagnostic Data EKG Results Normal sinus rhythm Assessment/Plan Assessment: 77-year-old gentleman with past medical history lumbar spinal stenosis, hypertension, peripheral neuropathy, BPH, alcohol dependence came to [facility] with complaints of hypotension and confusion from [facility]. Patient is placed under observation. Temperature 98.1, pulse rate 92, respiratory rate 18, blood pressure 64/48----> 90/68 Admission labs WBC 13.5, hemoglobin 14.2, platelet 308, sodium 129, potassium 4.8, chloride 92, BUN 35, creatinine 1.8, [previous creatinine 1.7, 1.3, 1.5, lactic acid-pending, calcium 9.8, total bilirubin 2, AST 121 ALT 307, alkaline phosphatase 165 Pending Urine analysis, lactic acid, urine culture Chest x-ray Low lung volumes ED treatment Normal saline bolus-2 bags Problems PreSyncope-patient's presyncopal episode can be secondary due to UTI/peripheral neuropathy. Patient says he has frequent falls and unsteady gait given his peripheral neuropathy. At this point it looks unlikely cardiac in origin. We will place him in telemetry under observation to monitor for any arrhythmias. Patient blood pressure was 64/48 which improved after 2 fluid boluses to systolic 120s. Given his hyponatremia we will hold off any further IV fluids. Encourage p.o. intake. We will get a physical therapy consult tomorrow morning. Leukocytosis-patient is afebrile but this urine is positive for nitrite. For now we will hold off antibiotics and follow-up with urine culture. Hyponatremia-this can be secondary due to dehydration. Patient has got to boluses of normal saline so far. We will follow with PCP. ELAINE on CKD-this can be secondary due to dehydration. We will follow renal function closely. Elevated transaminase-this can be secondary due to his previous alcohol abuse. Ultrasound right upper quadrant taken last week was normal. We will follow LFT in the morning. Lumbar spinal stenosis-patient is on Lidoderm patch, Dilaudid, acetaminophen as needed. Diet-heart healthy diet Code-full code DVT prophylaxis-Lovenox As Ranked By This Provider Problem List: 1. ELAINE (acute kidney injury) 2. Spinal stenosis 3. Dehydration 4. Pre-syncope Core Measures/Misc (12/24) Acute Coronary Syndrome ACS Diagnosis: No Congestive Heart Failure Congestive Heart Failure Diagnosis No Cerebrovascular Accident CVA/TIA Diagnosis: No VTE (View Protocol) VTE Risk Factors Age>40 No Mechanical VTE Prophylaxis d/t Other No VTE Pharm Prophylaxis d/t Other Sepsis (View protocol) Sepsis Present: No If YES complete Sepsis Event Note If YES complete Sepsis Event Note Gian Murry MD 11/17/17 0427: General Information and HPI MD Statement: I have seen and personally examined NILDA RAMEY and documented this H&P. The patient is a 77 year old M who presented with a patient stated chief complaint of [confusion]. Source of Information: old records, W10 Allergies/Medications Home Med list Benazepril HCl 5 MG TABLET 0.5 TAB PO DAILY BP (Reported) Celecoxib (Celebrex) 200 MG CAPSULE 1 CAP PO DAILY PRN PAIN (Reported) Cholecalciferol (Vitamin D3) (Vitamin D) 2,000 UNIT TABLET 1 TAB PO DAILY VITAMIN SUPPORT (Reported) Cyanocobalamin (Vitamin B-12) 1,000 MCG TABLET 1 TAB PO DAILY VITAMIN SUPPORT (Reported) Cyclobenzaprine HCl 10 MG TABLET 1 TAB PO Q8P spasms Folic Acid 0.8 MG TABLET 1 TAB PO DAILY VITAMIN SUPPORT (Reported) Gabapentin 600 MG TABLET 1 TAB PO TID NEUROPATHY (Reported) Hydrochlorothiazide 25 MG TABLET 0.5 TAB PO DAILY WATER RETENTION (Reported) Lidocaine (Lidoderm) 5 % ADH..PATCH 1 PAT TOP Q24H PRN back pain KEEP ON FOR 12 HOURS AND OFF FOR 12 HOURS Magnesium Oxide (Magnesium) 500 MG CAPSULE 1 CAP PO DAILY SUPPLEMENT ( Reported) Leander-3 Fatty Acids/Fish Oil (Fish Oil 1,000 MG Capsule) 340 MG-1,000 MG CAPSULE 1 CAP PO DAILY SUPPLEMENT (Reported) Tamsulosin HCl (Flomax) 0.4 MG CAP.ER.24H 0.4 MG PO BID BPH Tramadol HCl 50 MG TABLET 50 MG PO Q6-PRN PRN PAIN SCALE 7-10 (SEVERE) Turmeric Root Extract (Turmeric) 500 MG CAPSULE 1 CAP PO DAILY SUPPLEMENT ( Reported) Observation Initial Note - I have personally examined NILDA RAMEY on 11/17/17 at 0428. The disposition of NILDA RAMEY is uncertain at this time and before a determination can be made, he requires a period of observation for the following reasons [presyncope] Past History Medical History Neurological: peripheral neuropathy Cardiovascular: hypertension Musculoskeletal: SPINAL STENOSIS Surgical History Surgical History: appendectomy, cholecystectomy Past Family/Social History Psychosocial History Smoking Status: Former Smoker ETOH Use: past history of heavy use Illicit Drug Use: denies illicit drug use Review of Systems Review of Systems Constitutional: Reports: see HPI. Exam & Diagnostic Data Last 24 Hrs of Vital Signs/I&O Vital Signs Date Time Temp Pulse Resp B/P B/P Pulse O2 O2 Flow FiO2 Mean Ox Delivery Rate 11/17 0106 85 98 11/16 2250 87 11/16 212 97.6 89 18 128/78 98 11/16 2124 Room Air 11/16 1915 96/56 11/16 1817 86 16 90/68 99 Room Air 11/16 1736 98.1 92 18 64/48 97 Intake & Output 11/17 0800 11/17 0000 11/16 1600 Intake Total 2680 Output Total 1025 Balance 1655 Intake, IV 2200 Intake, Oral 480 Number 4 Bowel Movements Output, Urine 1025 Patient 154 lb Weight Weight Reported by Patient Measurement Method Physical Exam General Appearance Alert, Oriented X3, Cooperative, No Acute Distress Skin No Rashes, No Breakdown Skin Temp/Moisture Exam: Warm/Dry Sepsis Skin Exam (color): Normal for Ethnicity HEENT Atraumatic, PERRLA, EOMI Neck Supple, No JVD Lymphatic Axillary nl, Cervical nl Cardiovascular Regular Rate, Normal S1, Normal S2, No Murmurs Lungs Clear to Auscultation, Normal Air Movement Abdomen Normal Bowel Sounds, Soft Neurological Normal Speech Extremities No Clubbing, No Cyanosis, No Edema, Normal Pulses Sepsis Peripheral Pulse Location: Dorsalis Pedis Sepsis Peripheral Pulse Exam: Normal Sepsis Cap Refill Exam: <2 Sec Last 24 Hrs of Labs/Michael: Laboratory Tests 11/16/17 2240: Anion Gap 10, Estimated GFR 58 L, BUN/Creatinine Ratio 25.8 H 11/16/172127: Lactic Acid Cancelled 11/16/17 1832: Lactic Acid 1.3 11/16/17 1827: Urine Color YEL, Urine Clarity HAZY H, Urine pH 6.0, Ur Specific [place] 1.015, Urine Protein NEG, Urine Ketones NEG, Urine Nitrite POS H, Urine Bilirubin NEG, Urine Urobilinogen 0.2, Ur Leukocyte Esterase LARGE H, Ur Microscopic SEDIMENT EXAMINED, Urine RBC RARE, Urine WBC 10-15 H, Urine Bacteria MANY H, Hyaline Casts FEW H, Urine Mucus FEW, Urine Hemoglobin TRACE-INTACT H, Urine Glucose NEG 11/16/17 1741: Anion Gap 13, Estimated GFR 37 L, BUN/Creatinine Ratio 19.4, Glucose 150 H, Calcium 9.8, Total Bilirubin 2.0 H, AST 121 H, ALT 307 H, Alkaline Phosphatase 165 H, Troponin I < 0.01, Total Protein 7.6, Albumin 4.4, Globulin 3.2, Albumin/Globulin Ratio 1.4, CBC w Diff NO MAN DIFF REQ, RBC 4.57 L, MCV 91.7, MCH 31.1 H, MCHC 33.9, RDW 13.5, MPV 8.6, Gran % 84.6 H, Lymphocytes % 8.5 L, Monocytes % 6.2, Eosinophils % 0.4, Basophils % 0.3, Absolute Granulocytes 11.5 H, Absolute Lymphocytes 1.2, Absolute Monocytes 0.8 H, Absolute Eosinophils 0.1, Absolute Basophils 0 Microbiology 11/16 191 URINE ROUT: Urine Culture - CAN Cancelled: DUP. ORDER 11/16 182 URINE ROUT: Urine Culture - RECD Core Measures/Misc (12/24) Sepsis (View protocol) If YES complete Sepsis Event Note If YES complete Sepsis Event Note Attending MD Review Statement Attending Statement Attending MD Statement: examined this patient, discuss w/resident/PA/TARP REPAIRER, agreed w/resident/PA/TARP REPAIRER, amended to note Attending Assessment/Plan: This patient is a 77-year-old male with a significant past medical history for lumbar spinal stenosis, hypertension, peripheral neuropathy, BPH, alcohol dependence came to [facility] with complaints of hypotension and confusion from [facility]. According to the patient he was in usual state of health however he passed out after PT the morning of admission. According to the ECF, the patient was found to be confused at around 11 and when blood pressure was checked it was found to be systolic 40s which came up to 80s. The patient was recently admitted in [facility] for obstructive uropathy, and elevated transaminase. Upon evaluation in the ED the patient had hypotension (64/48----> 90/68), elevated WBC 13.5, BUN 35, creatinine 1.8,and a Pos UA. The patient will be place on Observation on Telemetry for acute kidney injury (class 4), and urinary tract infection. Follow for cardiac changes overnight. Follow off abx. Code-full code.
[2017-11-16] MEDS ORDERED: GABAPENTIN600 M1 PO (20:59)
[2017-11-16 21:26] VITALS: BP 128/78
--- NOTE | 2017-11-17 05:24 | PN- Housestaff ---
See Addendum Subjective Follow-up For: Hypotension Complaints: no complaints Tele-Events Since Last Visit: Normal sinus rhythm Subjective: Patient seen and examined at bedside no overnight events. Patient slept well overnight. Denies chest pain, palpitation, shortness of breath, weakness, dizziness. Review of Systems Constitutional: Reports: no symptoms. Objective Last 24 Hrs of Vital Signs/I&O Vital Signs Date Time Temp Pulse Resp B/P B/P Pulse O2 O2 Flow FiO2 Mean Ox Delivery Rate 11/17 0106 85 98 11/16 2250 87 11/16 2125 97.6 89 18 128/78 98 11/16 2124 Room Air 11/16 1915 96/56 11/16 1817 86 16 90/68 99 Room Air 11/16 1736 98.1 92 18 64/48 97 Intake & Output 11/17 0811/17 0000 11/16 1600 Intake Total 2680 Output Total 1025 Balance 1655 Intake, IV 2200 Intake, Oral 480 Number 4 Bowel Movements Output, Urine 1025 Patient 154 lb Weight Weight Reported by Patient Measurement Method Physical Exam General Appearance: Alert, Oriented X3, Cooperative, No Acute Distress Cardiovascular: Regular Rate, Normal S1, Normal S2, No Murmurs Lungs: Normal Air Movement Abdomen: Soft, No Tenderness, No Hepatospenomegaly Neurological: Strength at 5/5 X4 Ext, Normal Tone, Sensation Intact Current Medications: Current Medications Sig/Shaneka Start time Last Medication Dose Route Stop Time Status Admin Acetaminophen 650 MG Q6P PRN 11/16 2044 AC PO Celecoxib 200 MG DAILY PRN 11/16 2099 CAN PO Cyclobenzaprine HCl 10 MG Q8P PRN 11/16 2099 AC PO Enoxaparin Sodium 30 MG DAILY 11/17 899 AC SC Enoxaparin Sodium 30 MG BID 11/16 2099 DC SC Gabapentin 600 MG BID 11/17 899 DC PO Gabapentin 600 MG BID 11/160 AC 11/16 PO 2250 Gabapentin 600 MG Q8 11/16 2199 DC PO Hydromorphone HCl 0.5 MG Q4 PRN 11/16 2044 AC IV Lidocaine 1 PAT Q24H PRN 11/16 2099 AC TOP Magnesium Oxide 400 MG DAILY 11/17 899 AC PO Oxycodone HCl 10 MG Q6P PRN 11/16 2044 AC PO Sodium Chloride 1,000 ML ONCE ONE 11/16 1914 DC 11/16 IV 11/17 0514 2115 Sodium Chloride 1,000 ML BOLUS ONE 11/16 174 DC 11/16 IV 11/16 1844 174 Sodium Chloride 1,000 ML BOLUS ONE 11/16 1745 DC 11/16 IV 11/16 184 175 Tamsulosin HCl 0.4 MG BID 11/16 2100 AC 11/16 PO 2250 Last 24 Hrs of Lab/Michael Results Last 24 Hrs of Labs/Mics: Laboratory Tests 11/16/17 2240: Anion Gap 10, Estimated GFR 58 L, BUN/Creatinine Ratio 25.8 H 11/16/172127: Lactic Acid Cancelled 11/16/17 183: Lactic Acid 1.3 11/16/171826: Urine Color YEL, Urine Clarity HAZY H, Urine pH 6.0, Ur Specific [place] 1.015, Urine Protein NEG, Urine Ketones NEG, Urine Nitrite POS H, Urine Bilirubin NEG, Urine Urobilinogen 0.2, Ur Leukocyte Esterase LARGE H, Ur Microscopic SEDIMENT EXAMINED, Urine RBC RARE, Urine WBC 10-15 H, Urine Bacteria MANY H, Hyaline Casts FEW H, Urine Mucus FEW, Urine Hemoglobin TRACE-INTACT H, Urine Glucose NEG 11/16/17 174: Anion Gap 13, Estimated GFR 37 L, BUN/Creatinine Ratio 19.4, Glucose 150 H, Calcium 9.8, Total Bilirubin 2.0 H, AST 121 H, ALT 307 H, Alkaline Phosphatase 165 H, Troponin I < 0.01, Total Protein 7.6, Albumin 4.4, Globulin 3.2, Albumin/Globulin Ratio 1.4, CBC w Diff NO MAN DIFF REQ, RBC 4.57 L, MCV 91.7, MCH 31.1 H, MCHC 33.9, RDW 13.5, MPV 8.6, Gran % 84.6 H, Lymphocytes % 8.5 L, Monocytes % 6.2, Eosinophils % 0.4, Basophils % 0.3, Absolute Granulocytes 11.5 H, Absolute Lymphocytes 1.2, Absolute Monocytes 0.8 H, Absolute Eosinophils 0.1, Absolute Basophils 0 Microbiology 11/16 1912 URINE ROUT: Urine Culture - CAN Cancelled: DUP. ORDER 11/16 1826 URINE ROUT: Urine Culture - RECD Assessment/Plan Assessment: 77-year-old gentleman with past medical history lumbar spinal stenosis, hypertension, peripheral neuropathy, BPH, alcohol dependence came to [place] [facility] with complaints of hypotension and confusion from [facility]. Assessment and plan Hypotension -patient's history of low blood pressure, confusion can be secondary due to peripheral neuropathy/UTI. Patient also was dehydrated upon presentation. He endorses decreased p.o. intake at the facility. Continue monitoring and telemetry. His blood pressure improved to systolic 120s with IV fluid bolus. Encourage p.o. intake. We will get a physical therapy consult tomorrow morning. Leukocytosis-patient is afebrile but this urine is positive for nitrite. For now we will hold off antibiotics and follow-up with urine culture. Hyponatremia-this can be secondary due to dehydration. Patient has got 2 boluses of normal saline so far. We will follow with BEP. ELAINE on CKD-this can be secondary due to dehydration. His renal numbers improved significantly with IV fluids. Elevated transaminase-this can be secondary due to his previous alcohol abuse. Ultrasound right upper quadrant taken last week was normal. We will follow LFT in the morning. Lumbar spinal stenosis-patient is on Lidoderm patch, Dilaudid, acetaminophen as needed. Problem List: 1. Dehydration Pain Ratin Pain Location: NONE Pain Goal: Remain pain free Pain Plan: TYLENOL Tomorrow's Labs & Rationales: CBC,BEP
[2017-11-17 06:44] VITALS: BP 108/22
[2017-11-17 08:04] VITALS: BP 124/70
[2017-11-17 08:56] LABS: ABSOLUTE BASOPHIL COUNT 0 /CUMM (0.0-0.2); ABSOLUTE EOSINOPHIL COUNT 0.2 /CUMM (0.0-0.7); ABSOLUTE GRANULOCYTE CT 3.3 /CUMM (1.4-6.5); ABSOLUTE LYMPH COUNT 1.5 /CUMM (1.2-3.4); ABSOLUTE MONOCYTE COUNT 0.4 /CUMM (0.10-0.60); BASOPHIL % 0.3 % (0.0-2.0); EOSINOPHIL % 2.8 % (0-5); GRANULOCYTE % 61.1 % (42.2-75.2); MEAN CORPUSCULAR HGB 31.9 PG (27.0-31.0); MEAN CORPUSCULAR HGB CONC 34.4 G/DL (33.0-37.0); MEAN CORPUSCULAR VOLUME 92.7 FL (80.0-94.0); MEAN PLATELET VOLUME 9.4 FL (7.4-10.4); PLATELET COUNT 209 /CUMM (130-400); RBC DISTRIBUTION WIDTH 13.7 % (11.5-14.5); RED BLOOD CELL CT 3.69 /CUMM (4.70-6.10)
[2017-11-17 10:39] LABS: HEMATOCRIT 34.3 % (42-52); WHITE BLOOD CELL COUNT 5.4 /CUMM (4.8-10.8)
[2017-11-17 15:05] VITALS: BP 130/70
[2017-11-18 06:00] VITALS: BP 128/62
[2017-11-18 06:56] VITALS: BP 128/62
[2017-11-18] MEDS ORDERED: NITROFURANTOIN100 M5 PO (11:46)
--- NOTE | 2017-11-18 12:24 | Patient Discharge Instructions ---
Discharge Instructions General Discharge Information You were seen/treated for: Syncope UTI Watch for these problems: Please return to the ER in case of any lightheadedness/dizziness, further Syncopal episodes/falls, chest pain, palpitations or shortness of breath. Special Instructions: Please follow-up with your PCP within a week after discharge. Straight cath may be required every 6-8th hourly, for Urinary retention Diet Continue normal diet: Yes Activity Full Activity/No Limits: Yes Activity Self Limited: Yes Acute Coronary Syndrome Inclusion Criteria At DC or during hospital stay patient has or had the following: ACS DIAGNOSIS No Discharge Core Measures Meds if any: Prescribed or Continued at Discharge Meds if any: NOT Prescribed or Continued at Discharge Congestive Heart Failure Inclusion Criteria At DC or during hospital stay patient has or had the following: CHF DIAGNOSIS No Discharge Core Measures Meds if any: Prescribed or Continued at Discharge Meds if any: NOT Prescribed or Continued at Discharge Cerebrovascular accident Inclusion Criteria At DC or during hospital stay patient has or had the following: CVA/TIA Diagnosis No Discharge Core Measures Meds if any: Prescribed or Continued at Discharge Meds if any: NOT Prescribed or Continued at Discharge Venous thromboembolism Inclusion Criteria VTE Diagnosis No VTE Type NONE VTE Confirmed by (Test) NONE Discharge Core Measures - Per Current guidelines, there needs to be overlap - treatment for the first 5 days of Warfarin therapy. - If discharged on Warfarin prior to 5 days of - overlap therapy, the patient will need to be - assessed for post discharge needs including - *Post discharge parental anticoagulation - *Warfarin and/or parental anticoagulation education - *Follow up date to check INR post discharge At least 5 days overlap therapy as Inpatient No Meds if any: Prescribed or Continued at Discharge Note: Overlap Therapy is Warfarin and Anticoagulant Meds if any: NOT Prescribed or Continued at Discharge
[2017-11-18 15:02] VITALS: BP 132/70
--- NOTE | 2017-11-18 18:10 | PN- Att Addend ---
Attending Addendum Attending Brief Note 77M PMH lumbar spinal stenosis, hypertension, peripheral neuropathy, BPH sent in from [facility] for syncopal episode following PT, found to be hypotensive in ER, improved after IV hydration. Patient has no memory of syncopizing. Per his family he looks vastly improved today and back to his baseline. His BP has normalized. He was able to walk around his room without difficulty. He has long standing chronic back pain with recent MRI showing multiple disc compression and nerve impingement. He has a history of multiple UTI's. He has had polyuria but no dysuria, and no systemic symptoms. Afebrile, stable vitals. Doing well today. Feels well. Vomited in the afternoon after receiving pain meds, but overall doing well. Urine culture growing Staph haemolyticus sensitive only to Vancomycin and Macrobid. 13-pt ROS negative AFVSS NAD NCAT MMM Supple RRR CTAB Soft, NTND No c/c/e Pulses intact A&Ox3 no focal deficits Current Medications Sig/Shaneka Start time Last Medication Dose Route Stop Time Status Admin Acetaminophen 650 MG Q6P PRN 11/16 2044 AC PO Ceftriaxone Sodium 1,000 MG 1800 11/17 1800 DC 11/17 IV 1743 Cyclobenzaprine HCl 10 MG Q8P PRN 11/16 2099 AC PO Enoxaparin Sodium 30 MG DAILY 11/17 09 AC 11/18 SC 1043 Gabapentin 600 MG BID 11/16 2230 AC 11/18 PO 1039 Hydromorphone HCl 0.5 MG Q4 PRN 11/16 2044 AC 11/18 IV 1035 Lidocaine 1 PAT Q24H PRN 11/16 2100 AC 11/17 TOP 0818 Magnesium Oxide 400 MG DAILY 11/17 09 AC 11/18 PO 1040 Ondansetron HCl 0 .STK-MED ONE 11/18 1247 DC .ROUTE Ondansetron HCl 4 MG ONCE ONE 11/18 1245 DC 0812 IV 11/18 1246 1246 Oxycodone HCl 10 MG Q6P PRN 11/16 2044 AC 11/17 PO 2013 Tamsulosin HCl 0.4 MG BID 11/16 2100 AC 11/18 PO 1040 Vancomycin HCl 1,000 MG Q24H 11/18 1300 AC 11/18 Sodium Chloride 250 ML IV 1337 Vancomycin HCl 1,000 MG DAILY 11/18 1201 DC Sodium Chloride 250 ML IV Laboratory Tests 11/18 0630 Chemistry Sodium (137 - 145 mmol/L) 135 L Potassium (3.5 - 5.1 mmol/L) 4.0 Chloride (98 - 107 mmol/L) 104 Carbon Dioxide (22 - 30 mmol/L) 25 Anion Gap (5 - 16) 6 BUN (9 - 20 mg/dL) 16 Creatinine (0.7 - 1.2 mg/dL) 0.8 Estimated GFR (>60 ml/min) > 60 BUN/Creatinine Ratio (7 - 25 %) 20.0 Vital Signs Date Time Temp Pulse Resp B/P B/P Pulse O2 O2 Flow FiO2 Mean Ox Delivery Rate 11/18 1502 98.2 77 20 132/70 96 Room Air 11/18 1040 81 136/84 11/18 0656 97.8 84 20 128/62 96 Room Air 11/18 0600 128/62 11/17 2253 96.8 88 18 97 Room Air 11/17 2026 94 97 11/17 2012 90 122/64 Intake & Output 11/18 1600 11/18 0800 11/18 0000 Intake Total 1020 120 150 Output Total 650 500 800 Balance 370 -380 -650 Intake, IV 270 Intake, Oral 750 120 150 Number 0 1 Bowel Movements Output, Urine 650 500 800 Patient 70.392 kg Weight 1. Syncope 2. Staphylococcal UTI 3. Chronic lower back pain 4. Deconditioning Plan - Continue obseration in telemetry - Discontinue Ceftriaxone, start Vancomycin, switch to Macrobid on discharge for a total of 7 days of treatment - Follow cultures - No further fluids - Cardiology consult for syncope - PT eval - Continue home medications - DVT PPx - Family would like patient to be sent to [facility] on discharge, coordinated with behavioral health case manager, searching for bed
--- NOTE | 2017-11-18 19:49 | Discharge Summary ---
See Addendum Visit Information Visit Dates Admission Date: 11/16/17 Discharge Date: 11/20/2017 Hospital Course Course Attending Physician: Lucía Gallardo MD Primary Care Physician: Sean Delatorre MD Hospital Course: Patient is a 77-year-old male past medical history of lumbar paraspinal stenosis , hypertension, peripheral neuropathy, BPH sent in from [facility] for episode of syncope after physical therapy. He was found to be hypertensive in ER in range of 64/48, which improved after IV hydration of around 3 L. On further evaluation and urine culture did grow staph hemolyticus which was sensitive only to vancomycin and Macrobid. We will give IV vancomycin in the hospital and discharged on the tablet Macrobid to complete a total 7 days of antibiotic. We obtained cardiology consult who advised for echocardiogram, which was in normal limit. He was also had urinary retention, needed lizarraga, which we advised removed on the day of discharge, with voiding trial, which he failed and needed staighted cath. We called Dr Card who advised as an outpatient evaluation. We advised to do straight cath as needed and follow up with with urology as outpatient. Allergies: Coded Allergies: No Known Allergies (10/22/17) Disposition Summary Disposition Principal Diagnosis: Orthostatic hypotension; Syncope possibly secondary to dehydration Staph hemolyticus UTI Chronic low back pain Deconditioning Additional Diagnosis: Lumbar spinal stenosis peripheral neuropathy Hypertension BPH Chronic back pain Discharge Disposition: [facility] ([facility]) Discharge Instructions General Discharge Information Code Status: Full Code Patient's Diet: Heart healthy diet Patient's Activity: Take fall precautions Follow-Up Instructions/Appts: We advised the patient to follow-up with primary care provider within a week of discharge. Advised the patient to maintain hydration. Medications at Discharge Discharge Medications: Continue taking these medications: Celecoxib (Celebrex) 200 MG CAPSULE 1 Capsule ORAL DAILY as needed for PAIN Comments: NOT GIVEN IN HOSPITAL Magnesium Oxide (Magnesium) 500 MG CAPSULE 1 Capsule ORAL DAILY Comments: Last Taken:11/20/17 Time:0855 Hydrochlorothiazide (Hydrochlorothiazide) 25 MG TABLET 0.5 Tablet ORAL DAILY Comments: Last Taken: 11/14/17 Time: 9:00AM Folic Acid (Folic Acid) 0.8 MG TABLET 1 Tablet ORAL DAILY Comments: NOT GIVEN IN HOSPITAL Cholecalciferol (Vitamin D3) (Vitamin D) 2,000 UNIT TABLET 1 Tablet ORAL DAILY Comments: NOT GIVEN IN HOSPITAL Cyanocobalamin (Vitamin B-12) 1,000 MCG TABLET 1 Tablet ORAL DAILY Comments: NOT GIVEN IN HOSPITAL [place]-3 Fatty Acids/Fish Oil (Fish Oil 1,000 MG Capsule) 340 MG-1,000 MG CAPSULE 1 Capsule ORAL DAILY Comments: NOT GIVEN IN HOSPITAL Turmeric Root Extract (Turmeric) 500 MG CAPSULE 1 Capsule ORAL DAILY Comments: NOT GIVEN IN HOSPITAL Benazepril HCl (Benazepril HCl) 5 MG TABLET 0.5 Tablet ORAL DAILY Comments: NOT GIVEN IN HOSPITAL Cyclobenzaprine HCl (Cyclobenzaprine HCl) 10 MG TABLET 1 Tablet ORAL EVERY 8 HOURS NEEDED Qty = 21 Comments: Last Taken: 11/18/17 Time: 2042 Tramadol HCl (Tramadol HCl) 50 MG TABLET 50 Milligram ORAL EVERY 6 HOURS NEEDED as needed for PAIN SCALE 7-10 ( SEVERE) Qty = 10 Comments: NOT GIVEN IN HOSPITAL Lidocaine (Lidoderm) 5 % ADH..PATCH 1 Patch On the skin Q24H as needed for back pain Qty = 30 Instructions: KEEP ON FOR 12 HOURS AND OFF FOR 12 HOURS Comments: NOT GIVEN IN HOSPITAL Tamsulosin HCl (Flomax) 0.4 MG CAP.ER.24H 0.4 Milligram ORAL TWICE DAILY Qty = 30 Comments: Last Taken: 11/20/17 Time: 854 Gabapentin (Gabapentin) 600 MG TABLET 1 Tablet ORAL THREE TIMES DAILY Comments: Last Taken:11/20/17 Time:0855 Start taking the following new medications: Nitrofurantoin Macrocrystal (Nitrofurantoin) 100 MG CAPSULE 1 Capsule ORAL TWICE DAILY Qty = 14 No Refills Comments: NOT GIVEN IN HOSPITAL [facility] GIVEN Copies To: Nandini GARCIA,Sean Doyle MD Review Statement Documenting Attending: Paulina GARCIA,Lucía
[2017-11-18 22:50] VITALS: BP 128/60
[2017-11-19 06:59] VITALS: BP 118/74
--- NOTE | 2017-11-19 12:20 | PN- Att Addend ---
Attending Addendum Attending Brief Note 77M PMH lumbar spinal stenosis, hypertension, peripheral neuropathy, BPH sent in from [facility] for syncopal episode following PT, found to be hypotensive in ER, improved after IV hydration. Patient has no memory of syncopizing. Per his family he looks vastly improved today and back to his baseline. His BP has normalized. He was able to walk around his room without difficulty. He has long standing chronic back pain with recent MRI showing multiple disc compression and nerve impingement. He has a history of multiple UTI's. He has had polyuria but no dysuria, and no systemic symptoms. Afebrile, stable vitals. Doing well today. Feels well. Vomited in the afternoon after receiving pain meds, but overall doing well. Urine culture growing Staph haemolyticus sensitive only to Vancomycin and Macrobid. 13-pt ROS negative AFVSS NAD NCAT MMM Supple RRR CTAB Soft, NTND No c/c/e Pulses intact A&Ox3 no focal deficits Current Medications Sig/Shaneka Start time Last Medication Dose Route Stop Time Status Admin Acetaminophen 650 MG Q6P PRN 11/16 2044 AC PO Cyclobenzaprine HCl 10 MG Q8P PRN 11/16 2099 AC 11/18 PO 204 Enoxaparin Sodium 30 MG DAILY 11/17 09 AC 11/19 SC 0805 Gabapentin 600 MG BID 11/16 2230 AC 11/19 PO 08 Hydromorphone HCl 0.5 MG Q4 PRN 11/16 2044 AC 11/18 IV 1035 Lidocaine 1 PAT Q24H PRN 11/16 2100 AC 11/17 TOP 0818 Magnesium Oxide 400 MG DAILY 11/17 09 AC 11/19 PO 08 Naproxen 500 MG ONCE ONE 11/18 2014 DC 11/18 PO 11/18 Ondansetron HCl 0 .STK-MED ONE 11/18 1247 DC .ROUTE Ondansetron HCl 4 MG ONCE ONE 11/18 1245 DC 11/18 IV 11/18 1246 1246 Oxycodone HCl 10 MG Q6P PRN 11/16 2044 AC 11/17 PO 2013 Tamsulosin HCl 0.4 MG BID 11/16 2100 AC 11/19 PO 08 Vancomycin HCl 1,000 MG Q24H 11/18 1300 AC 11/18 Sodium Chloride 250 ML IV 1337 Laboratory Tests 11/19 0615 Chemistry Sodium (137 - 145 mmol/L) 135 L Potassium (3.5 - 5.1 mmol/L) 4.2 Chloride (98 - 107 mmol/L) 104 Carbon Dioxide (22 - 30 mmol/L) 22 Anion Gap (5 - 16) 9 BUN (9 - 20 mg/dL) 14 Creatinine (0.7 - 1.2 mg/dL) 0.7 Estimated GFR (>60 ml/min) > 60 BUN/Creatinine Ratio (7 - 25 %) 20.0 Vital Signs Date Time Temp Pulse Resp B/P B/P Pulse O2 O2 Flow FiO2 Mean Ox Delivery Rate 11/19 1158 CPAP Room Air 11/19 0804 81 118/74 11/19 0659 98.0 81 18 118/74 99 CPAP 11/19 0027 79 97 11/18 2250 98.3 81 18 128/60 94 Room Air 11/18 2205 82 97 11/18 2042 80 18 128/60 11/18 1502 98.2 77 20 132/70 96 Room Air Intake & Output 11/19 1600 11/19 0800 11/19 0000 Intake Total 120 120 Output Total 1000 Balance 120 -880 Intake, Oral 120 120 Output, Urine 1000 Patient 70.023 kg Weight 1. Syncope 2. Staphylococcal UTI 3. Chronic lower back pain 4. Deconditioning Plan - Stable for discharge to [facility] - Continue Vancomycin, switch to Macrobid on discharge for a total of 7 days of treatment - Follow cultures - No further fluids - Cardiology consult for syncope - PT eval - Continue home medications - DVT PPx - Family would like patient to be sent to [facility] on discharge, coordinated with field nurse case manager, searching for bed
--- NOTE | 2017-11-19 12:21 | PN- Housestaff ---
See Addendum Subjective Follow-up For: Hypotension UTI SYncope Complaints: no complaints Tele-Events Since Last Visit: PVC - 12 beats, HR in 100s Subjective: Patient was examined bedside. IS doing well and feels ready to go home Review of Systems Constitutional: Denies: chills, diaphoresis, fever, malaise, weakness, unexplained weight loss. Cardiovascular: Denies: chest pain, edema, orthopena, palpitations, peripheral edema. Respiratory: Denies: cough, hemoptysis, orthopnea, sputum production, stridor. Gastrointestinal: Denies: abdominal pain, nausea, vomiting. Objective Last 24 Hrs of Vital Signs/I&O Vital Signs Date Time Temp Pulse Resp B/P B/P Pulse O2 O2 Flow FiO2 Mean Ox Delivery Rate 11/19 1456 97.6 93 18 128/68 96 Room Air 11/19 1158 CPAP Room Air 11/19 0804 81 118/74 11/19 0659 98.0 81 18 118/74 99 CPAP 11/19 0027 79 97 11/18 2250 98.3 81 18 128/60 94 Room Air 11/18 2205 82 97 11/18 2042 80 18 128/60 Intake & Output 11/19 1600 11/19 0800 11/19 0000 Intake Total 525 120 120 Output Total 700 1000 Balance -175 120 -880 Intake, Oral 525 120 120 Output, Urine 700 1000 Patient 154 lb 154 lb Weight Weight Bed scale Measurement Method Physical Exam General Appearance: Alert, Oriented X3, Cooperative, No Acute Distress Cardiovascular: Regular Rate, No Murmurs Lungs: Clear to Auscultation, Normal Air Movement Abdomen: Normal Bowel Sounds, Soft, No Tenderness, No Hepatospenomegaly, No Masses Neurological: Normal Speech, Strength at 5/5 X4 Ext, Normal Tone, Sensation Intact Current Medications: Current Medications Sig/Shaneka Start time Last Medication Dose Route Stop Time Status Admin Acetaminophen 650 MG Q6P PRN 11/16 2044 AC PO Cyclobenzaprine HCl 10 MG Q8P PRN 11/16 2100 AC 11/18 PO 204 Enoxaparin Sodium 30 MG DAILY 11/17 0900 AC 11/19 SC 0805 Gabapentin 600 MG BID 11/16 2230 AC 11/19 PO 804 Hydromorphone HCl 0.5 MG Q4 PRN 11/16 2044 AC 11/18 IV 1035 Lidocaine 1 PAT Q24H PRN 11/16 2100 AC 11/17 TOP 0818 Magnesium Oxide 400 MG DAILY 11/17 0900 AC 11/19 PO 08 Naproxen 500 MG ONCE ONE 11/18 2014 DC 11/18 PO 11/18 Oxycodone HCl 10 MG Q6P PRN 11/16 2045 AC 11/17 PO 2013 Tamsulosin HCl 0.4 MG BID 11/16 2100 AC 11/19 PO 08 Vancomycin HCl 1,000 MG Q24H 11/18 1300 AC 11/19 Sodium Chloride 250 ML IV 1235 Last 24 Hrs of Lab/Michael Results Last 24 Hrs of Labs/Mics: Laboratory Tests 11/19/17 0615: Anion Gap 9, Estimated GFR > 60, BUN/Creatinine Ratio 20.0 Assessment/Plan Assessment: 77M PMH lumbar spinal stenosis, hypertension, peripheral neuropathy, BPH sent in from [facility] for syncopal episode following PT, found to be hypotensive in ER, improved after IV hydration. Patient has no memory of syncopizing. Per his family he looks vastly improved today and back to his baseline. His BP has normalized. He was able to walk around his room without difficulty. He has long standing chronic back pain with recent MRI showing multiple disc compression and nerve impingement. He has a history of multiple UTI's. He has had polyuria but no dysuria, and no systemic symptoms. URine culture growing GNR. Afebrile, stable vitals. A/P - 1)Syncope- check for orthostatic vitals echocardiogram PT evaluation Continue Teleetry 2)UTI- continue Vanco, switch to macrobid - 7 days during discahrge - F/u urine Cx- staphylococus hemolytics sensitive only to Vanco, macrobid. Patient is stable and can be discharged tomorrow Problem List: 1. Syncope 2. ELAINE (acute kidney injury) Pain Ratin Pain Location: none Pain Goal: Remain pain free (none) Pain Plan: none Tomorrow's Labs & Rationales: none
--- NOTE | 2017-11-19 12:28 | Cons- Cardiology ---
General Information and HPI Consulting Request Date of Consult: 11/19/17 Requested By: Lucía Gallardo MD Reason for Consult: Syncope/hypotension Source of Information: patient, family, old records Exam Limitations: no limitations History of Present Illness: The patient is a 77-year-old male. His past medical history is remarkable for spinal stenosis, hypertension, peripheral neuropathy, alcohol dependence, etc. He was transferred to [facility] yesterday after having a post physical therapy syncopal episode with associated hypotension at the rehab facility. No other associated symptoms were noted. At the time of the event, the patient was noted to have a systolic blood pressure in the 40s which armen into the 80s with Trendelenburg. No other cardiac symptoms noted. The patient is doing somewhat better today. Allergies/Medications Allergies: Coded Allergies: No Known Allergies (10/22/17) Home Med List: Benazepril HCl 5 MG TABLET 0.5 TAB PO DAILY BP (Reported) Celecoxib (Celebrex) 200 MG CAPSULE 1 CAP PO DAILY PRN PAIN (Reported) Cholecalciferol (Vitamin D3) (Vitamin D) 2,000 UNIT TABLET 1 TAB PO DAILY VITAMIN SUPPORT (Reported) Cyanocobalamin (Vitamin B-12) 1,000 MCG TABLET 1 TAB PO DAILY VITAMIN SUPPORT (Reported) Cyclobenzaprine HCl 10 MG TABLET 1 TAB PO Q8P spasms Folic Acid 0.8 MG TABLET 1 TAB PO DAILY VITAMIN SUPPORT (Reported) Gabapentin 600 MG TABLET 1 TAB PO TID NEUROPATHY (Reported) Hydrochlorothiazide 25 MG TABLET 0.5 TAB PO DAILY WATER RETENTION (Reported) Lidocaine (Lidoderm) 5 % ADH..PATCH 1 PAT TOP Q24H PRN back pain KEEP ON FOR 12 HOURS AND OFF FOR 12 HOURS Magnesium Oxide (Magnesium) 500 MG CAPSULE 1 CAP PO DAILY SUPPLEMENT ( Reported) Nitrofurantoin Macrocrystal (Nitrofurantoin) 100 MG CAPSULE 1 CAP PO BID UTI [place]-3 Fatty Acids/Fish Oil (Fish Oil 1,000 MG Capsule) 340 MG-1,000 MG CAPSULE 1 CAP PO DAILY SUPPLEMENT (Reported) Tamsulosin HCl (Flomax) 0.4 MG CAP.ER.24H 0.4 MG PO BID BPH Tramadol HCl 50 MG TABLET 50 MG PO Q6-PRN PRN PAIN SCALE 7-10 (SEVERE) Turmeric Root Extract (Turmeric) 500 MG CAPSULE 1 CAP PO DAILY SUPPLEMENT ( Reported) Current Medications: Current Medications Sig/Shaneka Start time Last Medication Dose Route Stop Time Status Admin Acetaminophen 650 MG Q6P PRN 11/16 2044 AC PO Cyclobenzaprine HCl 10 MG Q8P PRN 11/16 2099 AC 11/18 PO 2042 Enoxaparin Sodium 30 MG DAILY 11/17 899 AC 11/19 SC 0805 Gabapentin 600 MG BID 11/16 2230 AC 11/19 PO 804 Hydromorphone HCl 0.5 MG Q4 PRN 11/16 2044 AC 11/18 IV 1035 Lidocaine 1 PAT Q24H PRN 11/16 2099 AC 11/17 TOP 0818 Magnesium Oxide 400 MG DAILY 11/17 899 AC 11/19 PO 803 Naproxen 500 MG ONCE ONE 11/18 2014 DC 11/18 PO 11/18 Ondansetron HCl 0 .STK-MED ONE 11/18 1247 DC .ROUTE Ondansetron HCl 4 MG ONCE ONE 11/18 1245 DC 11/18 IV 11/18 1246 1246 Oxycodone HCl 10 MG Q6P PRN 11/16 2044 AC 11/17 PO 2013 Tamsulosin HCl 0.4 MG BID 11/16 2099 AC 11/19 PO 803 Vancomycin HCl 1,000 MG Q24H 11/18 1300 AC 11/18 Sodium Chloride 250 ML IV 1337 Past History Travel History Traveled to [place] past 21 day No Medical History Blood Transfusion Hx: No Neurological: peripheral neuropathy EENT: NONE Cardiovascular: hypertension Respiratory: NONE Gastrointestinal: NONE Hepatic: NONE Renal: NONE Musculoskeletal: SPINAL STENOSIS Psychiatric: NONE Endocrine: NONE Blood Disorders: NONE Cancer(s): NONE OVEN PRESS TENDER/Reproductive: NONE Surgical History Surgical History: appendectomy, cholecystectomy Family History Relations & Conditions If Any: Relation not specified for: *No pertinent family history Psychosocial History Where Do You Live? Detention Facility Who Do You Live With? self Services at Home: Home Health Aide Primary Language: Welsh Smoking Status: Former Smoker ETOH Use: past history of heavy use Illicit Drug Use: denies illicit drug use Functional Ability ADLs Independent: dressing, eating. Needs Assist: toileting, bathing. Ambulation: walker IADLs Needs Assist: shopping, housework, finances, food prep, telephone, transportation, medication admin. Exam & Diagnostic Data Vital Signs and I&O Vital Signs Date Time Temp Pulse Resp B/P B/P Pulse O2 O2 Flow FiO2 Mean Ox Delivery Rate 11/19 1158 CPAP Room Air 11/19 0804 81 118/74 11/19 0659 98.0 81 18 118/74 99 CPAP 11/19 0027 79 97 11/18 2250 98.3 81 18 128/60 94 Room Air 11/18 2205 82 97 11/18 2042 80 18 128/60 11/18 1502 98.2 77 20 132/70 96 Room Air Intake & Output 11/19 1600 11/19 0811/19 0000 11/18 1600 11/18 0811/18 0000 Intake Total 348 188 8974 120 150 Output Total 1000 650 500 800 Balance 120 -880 370 -380 -650 Intake, IV 270 Intake, Oral 120 120 750 120 150 Number 0 1 Bowel Movements Output, Urine 1000 650 500 800 Patient 154 lb 155 lb Weight Physical Exam: General Appearance: well developed/nourished, alert, awake, oriented Head: normal HEENT: Normal Neck: supple, JVP normal, carotid upstrokes normal bilaterally, no masses or thyromegaly Respiratory: chest non-tender, clear to auscultation and percussion bilaterally Cardiovascular: regular rate/rhythm, normal S1, S2, 1/6 systolic murmur Abdomen: normal bowel sounds, soft, non-tender Extremities: normal inspection, no edema Vascular: Pulses are 2+ and equal bilaterally Neurologic: Grossly normal/nonfocal Labs/Michael Results: Laboratory Tests 11/19 11/18 0615 0630 Chemistry Sodium (137 - 145 mmol/L) 135 L 135 L Potassium (3.5 - 5.1 mmol/L) 4.2 4.0 Chloride (98 - 107 mmol/L) 104 104 Carbon Dioxide (22 - 30 mmol/L) 22 25 Anion Gap (5 - 16) 9 6 BUN (9 - 20 mg/dL) 14 16 Creatinine (0.7 - 1.2 mg/dL) 0.7 0.8 Estimated GFR (>60 ml/min) > 60 > 60 BUN/Creatinine Ratio (7 - 25 %) 20.0 20.0 Assessment/Plan Assessment/Plan Assessment: 1. Syncope with associated hypotension 2. Peripheral neuropathy 3. History of hypertension 4. History of peripheral neuropathy 5. Acute renal failure-improved Recommendations: -Patient's episode of syncope was clearly related to low blood pressure. Probable associated dehydration in view of acute renal failure noted. Commentating factors of peripheral neuropathy, etc. also present. -Keep on telemetry for 24 hours -Check orthostatic heart rate and blood pressure every shift 3 -Echocardiogram pending -Physical therapy evaluation Consult Acknowledgment - Thank you for your consult request.
[2017-11-19 14:56] VITALS: BP 128/68
[2017-11-19 22:09] VITALS: BP 114/68
--- NOTE | 2017-11-20 06:06 | PN- Housestaff ---
Omid Ortiz 11/20/17 0605: Subjective Follow-up For: Hypotension Syncope UTI Complaints: no complaints Tele-Events Since Last Visit: None Subjective: Chest is examined lying in bed. He did not have any complaints. He felt he was ready to go home. A treat for voiding trial Review of Systems Constitutional: Denies: chills, diaphoresis, fever, malaise, weakness, unexplained weight loss. Cardiovascular: Denies: chest pain, edema, orthopena, palpitations, peripheral edema, syncope. Respiratory: Denies: cough, hemoptysis, orthopnea, short of breath, sputum production, stridor. Gastrointestinal: Denies: bloating, bowel incontinence, nausea, vomiting. Objective Last 24 Hrs of Vital Signs/I&O Vital Signs Date Time Temp Pulse Resp B/P B/P Pulse O2 O2 Flow FiO2 Mean Ox Delivery Rate 11/20 0015 86 96 11/19 2209 97.8 82 18 114/68 96 11/19 2102 80 95 11/19 1456 97.6 93 18 128/68 96 Room Air 11/19 1158 CPAP Room Air 11/19 0804 81 118/74 11/19 0659 98.0 81 18 118/74 99 CPAP Intake & Output 11/20 0800 11/20 0000 11/19 1600 Intake Total 100 525 Output Total 500 700 Balance -400 -175 Intake, Oral 100 525 Output, Urine 500 700 Patient 152 lb 154 lb Weight Weight Bed scale Measurement Method Physical Exam General Appearance: Alert, Oriented X3, Cooperative, No Acute Distress HEENT: Atraumatic, PERRLA Cardiovascular: Regular Rate, No Murmurs Lungs: Clear to Auscultation, Normal Air Movement Abdomen: Normal Bowel Sounds, Soft, No Tenderness, No Hepatospenomegaly, No Masses Neurological: Normal Speech, Strength at 5/5 X4 Ext, Normal Tone, Sensation Intact Extremities: No Clubbing, No Cyanosis, No Edema, Normal Pulses, No Tenderness/ Swelling Other Physical Findings: Patient was discontinued on Cameron and voiding trial was done for 6 hours and patient retained urine. 250 mL of urine was found on bladder scan. Patient was advised for straight cath or self-catheterization every 6 hourly Current Medications: Current Medications Sig/Shaneka Start time Last Medication Dose Route Stop Time Status Admin Acetaminophen 650 MG Q6P PRN 11/16 2044 AC PO Cyclobenzaprine HCl 10 MG Q8P PRN 11/16 2099 AC 11/18 PO 2042 Enoxaparin Sodium 30 MG DAILY 11/17 09 AC 11/19 SC 08 Gabapentin 600 MG BID 11/16 2230 AC 11/19 PO 2006 Hydromorphone HCl 0.5 MG Q4 PRN 11/16 2044 AC 11/18 IV 1035 Lidocaine 1 PAT Q24H PRN 11/16 2100 AC 11/17 TOP 0818 Magnesium Oxide 400 MG DAILY 11/17 09 AC 11/19 PO 803 Oxycodone HCl 10 MG Q6P PRN 11/16 2044 AC 11/17 PO 2012 Tamsulosin HCl 0.4 MG BID 11/16 2100 AC 11/19 PO 2006 Vancomycin HCl 1,000 MG Q24H 11/18 1300 AC 11/19 Sodium Chloride 250 ML IV 1235 Last 24 Hrs of Lab/Michael Results Last 24 Hrs of Labs/Mics: Laboratory Tests 11/19/17 0615: Anion Gap 9, Estimated GFR > 60, BUN/Creatinine Ratio 20.0 Assessment/Plan Assessment: 77M PMH lumbar spinal stenosis, hypertension, peripheral neuropathy, BPH sent in from [facility] for syncopal episode following PT, found to be hypotensive in ER, improved after IV hydration. Patient has no memory of syncopizing. He was able to walk around his room without difficulty. He has long standing chronic back pain with recent MRI showing multiple disc compression and nerve impingement. He has a history of multiple UTI's. He has had polyuria but no dysuria, and no systemic symptoms. URine culture growing GNR. Afebrile, stable vitals. 1) syncope 2)UTI Patient was hypotensive at admission He was treated with fluid resuscitation Causes of syncope was ruled out Patient was feeling better today Cameron's catheter was discontinued and voiding trial was started Patient failed a voiding trial and had 50 mL of urine on bladder scan He was advised for straight cath every 6 hourly Patient was advised to return to ER on return of any symptoms or worsening. And was discharged to [facility] Problem List: 1. Syncope Pain Ratin Pain Location: None Pain Goal: Pain 4 or less Pain Plan: None Tomorrow's Labs & Rationales: None Lucía Gallardo MD 11/20/17 1111: Attending MD Review Statement Attending Statement Attending MD Statement: examined this patient, discuss w/resident/PA/REFUSE COLLECTOR SUPERVISOR, agreed w/resident/PA/REFUSE COLLECTOR SUPERVISOR, reviewed EMR data (avail) Attending Assessment/Plan: 77M PMH lumbar spinal stenosis, hypertension, peripheral neuropathy, BPH sent in from [facility] for syncopal episode following PT, found to be hypotensive in ER, improved after IV hydration. Patient has no memory of syncopizing. Per his family he looks vastly improved today and back to his baseline. His BP has normalized. He was able to walk around his room without difficulty. He has long standing chronic back pain with recent MRI showing multiple disc compression and nerve impingement. He has a history of multiple UTI's. He has had polyuria but no dysuria, and no systemic symptoms. Afebrile, stable vitals. Doing well today. Feels well. Urine culture growing Staph haemolyticus sensitive only to Vancomycin and Macrobid. 1. Syncope 2. Staphylococcal UTI 3. Chronic lower back pain 4. Deconditioning Plan - Stable for discharge to [facility] - Continue Vancomycin, switch to Macrobid on discharge for a total of 7 days of treatment - Follow cultures - No further fluids - Cardiology consult for syncope - PT eval - Continue home medications
[2017-11-20 06:58] VITALS: BP 114/60
[2017-11-20 10:08] VITALS: BP 128/58
[2017-11-20 10:09] VITALS: BP 128/58
--- NOTE | 2017-11-20 10:46 | PN- Cardiology ---
Subjective Subjective: Stable and improved with no arrhythmias noted on the monitor Objective Vital Signs and I&Os Vital Signs Date Time Temp Pulse Resp B/P B/P Pulse O2 O2 Flow FiO2 Mean Ox Delivery Rate 11/20 1009 97.7 95 18 128/58 11/20 1008 97.7 95 18 128/58 11/20 0855 95 128/58 11/20 0658 97.7 90 18 114/60 95 Room Air 11/20 0015 86 96 11/19 2209 97.8 82 18 114/68 96 11/19 2102 80 95 11/19 1456 97.6 93 18 128/68 96 Room Air 11/19 1158 CPAP Room Air Intake & Output 11/20 1600 11/20 0811/20 0000 11/19 1600 11/19 0000 Intake Total 100 525 120 120 Output Total 850 580 118 1215 Balance -850 -400 -175 120 -880 Intake, Oral 100 525 120 120 Output, Urine 850 004 296 4039 Patient 152 lb 154 lb 154 lb Weight Weight Bed scale Measurement Method Current Medications: Current Medications Sig/Shaneka Start time Last Medication Dose Route Stop Time Status Admin Acetaminophen 650 MG Q6P PRN 11/16 2044 AC PO Cyclobenzaprine HCl 10 MG Q8P PRN 11/16 2099 AC 11/18 PO 3 Enoxaparin Sodium 30 MG DAILY 11/17 899 AC 11/20 SC 0855 Gabapentin 600 MG BID 11/16 2229 AC 11/20 PO 0855 Hydromorphone HCl 0.5 MG Q4 PRN 11/16 2044 AC 11/18 IV 1035 Lidocaine 1 PAT Q24H PRN 11/16 2099 AC 11/17 TOP 18 Magnesium Oxide 400 MG DAILY 11/17 899 AC 11/20 PO 0855 Oxycodone HCl 10 MG Q6P PRN 11/16 2044 AC 11/17 PO 2013 Tamsulosin HCl 0.4 MG BID 11/16 2099 AC 11/20 PO 0855 Vancomycin HCl 1,000 MG Q24H 11/18 1300 AC 11/19 Sodium Chloride 250 ML IV 1235 Results Last 48 Hrs of Labs/Mics: Laboratory Tests 11/19/17 0615: Anion Gap 9, Estimated GFR > 60, BUN/Creatinine Ratio 20.0 Assessment/Plan Assessment/Plan Assessment: 1. Syncope with associated hypotension 2. Peripheral neuropathy 3. History of hypertension 4. History of peripheral neuropathy 5. Acute renal failure-improved Recommendations: -Patient's episode of syncope was clearly related to low blood pressure. Probable associated dehydration in view of acute renal failure noted. Commentating factors of peripheral neuropathy, etc. also present. -Keep on telemetry for 24 hours -Check orthostatic heart rate and blood pressure every shift 3 -Echocardiogram pending; if normal, the patient may be discharged for outpatient followup with me at a later date -Physical therapy evaluation Continue telemetry? Yes
--- NOTE | 2017-11-20 12:37 | ECHOCARDIOGRAM REPORT ---
NILDA RAMEY Age: 77 : 1940 Gender: M Exam Date: 11/20/2017 11:30 Exam Location: [place] Ht (in): 67 Wt (lb): 154 BSA: 1.82 BP: 114 / 60 Ordering Physician: Omid Ortiz MD Referring Physician: Omid Ortiz MD Technologist: Jay Sousa [facility] Room Number: 189-1 Indications: Cardiac arrhythmia, unspecified Rhythm: Sinus Technical Quality: Fair, Technically difficult study FINDINGS Left Ventricle Normal size left ventricle. No obvious regional wall motion abnormalities. Normal left ventricular ejection fraction estimated at 55-60%. Right Ventricle Right ventricle not well visualized, grossly normal. Right Atrium Normal right atrial size. Left Atrium Left atrial size at the upper limits of normal. Mitral Valve Mild thickening/calcification of the anterior mitral valve leaflet. Mild mitral annular calcification. Aortic Valve Trileaflet aortic valve. Diffuse thickening (sclerosis) of the aortic valve cusps without reduced excursion. No aortic stenosis. No aortic regurgitation. Tricuspid Valve Tricuspid valve not well visualized, grossly normal. Trace to mild tricuspid regurgitation. Pulmonic Valve Structurally normal pulmonic valve. Trace to mild pulmonic regurgitation. Pericardium No pericardial effusion. Great Vessels Normal size aortic root and proximal ascending aorta. CONCLUSIONS 1. This was a technically difficult examination 2. Moderate aortic sclerosis is present with no valvular stenosis or insufficiency 3. Thickening and calcification of the mitral leaflets is present with mild anular calcification and minimal mitral insufficiency 4. There is no pericardial fluid detected. 5. The left ventricular chamber size and systolic function appear normal 6. Minimal to mild tricuspid and pulmonic insufficiency are present with no evidence of pulmonary hypertension. Carlos A Mack M.D. (Electronically Signed) Final Date: 20 November 2017 12:36 MEASUREMENTS (Male / Female) Normal Values 2D ECHO LV Diastolic Diameter PLAX 4.4 cm 4.2 - 5.9 / 3.9 - 5.3 cm LV Systolic Diameter PLAX 2.3 cm 2.1 - 4.0 cm LV Fractional Shortening PLAX 47.7 % 25 - 46 % LV Ejection Fraction 2D Teich 79.3 % IVS Diastolic Thickness 1.2 cm LVPW Diastolic Thickness 1.2 cm LV Relative Wall Thickness 0.5 RV Internal Dim ED PLAX 2.9 cm 1.9 - 3.8 cm LVOT Diameter 1.9 cm Aortic Root Diameter 3.1 cm LA Systolic Diameter LX 3.1 cm 3.0 - 4.0 / 2.7 - 3.8 cm Ascending Aorta Diameter 3.4 cm DOPPLER AV Peak Velocity 121.0 cm/s AV Peak Gradient 5.9 mmHg AV Mean Velocity 67.6 cm/s AV Mean Gradient 2.0 mmHg AV Velocity Time Integral 21.6 cm AI Deceleration [place] 240.0 cm/s AI Peak Velocity 448.0 cm/s AI Pressure Half Time 547.0 ms AI Peak Gradient 80.3 mmHg LVOT Peak Velocity 77.5 cm/s LVOT Peak Gradient 2.4 mmHg LVOT Mean Velocity 51.3 cm/s LVOT Mean Gradient 1.0 mmHg LVOT Velocity Time Integral 19.2 cm LVOT Stroke Volume 54.4 cm AV Area Cont Eq vti 2.5 cm AV Area Cont Eq pk 1.8 cm MV Peak Velocity 131.0 cm/s MV Peak Gradient 6.9 mmHg MV Mean Velocity 64.0 cm/s MV Mean Gradient 2.0 mmHg Mitral E Point Velocity 63.7 cm/s Mitral A Point Velocity 123.0 cm/s Mitral E to A Ratio 0.5 MV PHT Velocity 71.9 cm/s MV Deceleration [place] 227.0 cm/s MV Pressure Half Time 95.0 ms MV Area PHT 2.3 cm MV Deceleration Time 215.0 ms TR Peak Velocity 156.0 cm/s TR Peak Gradient 9.7 mmHg Right Atrial Pressure 5.0 mmHg Pulmonary Artery Systolic Pressure 14.7 mmHg Right Ventricular Systolic Pressure 14.7 mmHg PV Peak Velocity 74.4 cm/s PV Peak Gradient 2.2 mmHg PV Mean Velocity 50.0 cm/s PV Mean Gradient 1.0 mmHg PV Velocity Time Integral 11.8 cm LV E' Lateral Velocity 6.6 cm/s Mitral E to LV E' Lateral Ratio 9.6 LV E' Septal Velocity 4.0 cm/s Mitral E to LV E' Septal Ratio 15.9
== END 2017-11-20 14:09 | DRG 690 ==
LOC: ERH 17:26 → 1NO 18:31 → ERHI 18:31 → CANRESERV 19:12 → ENRESERV 19:12 → ENTRNSPT 20:42 → EDTRNSPTSTS 20:47 → 1NO 20:50 → CMPTRNSPT 21:04 → 1NO 21:34 → ENPENDDIS 11-20 13:24 → 1NO 11-20 14:09
PROVIDERS: Physician Assistant Medical; Student in an Organized Health Care Education/Training Program
DX: N39.0 Urinary tract infection, site not specified (principal); E87.1 Hypo-osmolality and hyponatremia; N17.9 Acute kidney failure, unspecified; E86.0 Dehydration; B95.7 Other staphylococcus as the cause of diseases classified elsewhere; G62.9 Polyneuropathy, unspecified; F10.21 Alcohol dependence, in remission; Z99.81 Dependence on supplemental oxygen; M48.061 Spinal stenosis, lumbar region without neurogenic claudication; Z87.891 Personal history of nicotine dependence; N40.0 Benign prostatic hyperplasia without lower urinary tract symptoms; I12.9 Hypertensive chronic kidney disease with stage 1 through stage 4 chronic kidney disease, or unspecified chronic kidney disease; N18.9 Chronic kidney disease, unspecified; I95.1 Orthostatic hypotension
CPT/HCPCS: 1NSP; 87184; 36592; 71045; 81001; 82436; 87086; 87147; 93005; 93010; 93306; 96360; 97110-GO; 97116-GO; 97162-GP; 99291; G8978-GP; G8979-GP; J0696; J1650; J2405; J3370; J7040